=== PATIENT | female | born 1955 | race Caucasian/White ===

== ENCOUNTER 2016-08-26 17:28 | Emergency (ER) | payer MEDICARE, MEDICAID ==
[~2016-08-26] VITALS: Ht 170.2 cm; Wt 81.1 kg
[~2016-08-26 17:28] MED LIST: AZIT250T6 PO; CLON1TAB23 PO; FLUT1DIS INH; HYDR-4246 PO; ONDA4TAB7 PO; PANT40TA27 PO; PROP20TA7 PO; SUVO10TA; VENL150C2 PO
--- OUTSIDE RECORDS SUMMARY | 2016-08-26 17:32 | XMS REPORT | Continuity of Care Document ---
Author Author [facility] Organization [facility] Address Unknown Phone Unavailable Support Name Relationship Address Phone JODY ORNELAS MD Caregiver [address] [place] [address] [place] [phone] BARTOLO FRIEDMAN MD Caregiver [address] [place], [place] [id number] RIYA POWERS Next Of Kin [address] [place] [address] Insurance Providers Payer Name Policy Number Subscriber Name Relationship Medicare [id number] Regine Dixon 20 Self Advance Directives Directive Response Recorded Date/Time Advanced Directives Type None 11/09/13 5:58pm Problems Medical Problems Problem Onset Date Status ANXIETY Unknown Active CHEST WALL PAIN Unknown Active ANXIETY Unknown Active CHEST WALL PAIN Unknown Active GERD Unknown Active Gastritis Unknown Active Headache Unknown Active Seborrheic dermatitis of scalp Unknown Active LOW BACK PAIN Unknown Active Low back pain Unknown Active ANXIETY Unknown Active Fall on same level from slipping, tripping or stumbling Unknown Active Neck strain Unknown Active Right knee contusion Unknown Active Shoulder contusion Unknown Active Restless leg syndrome Unknown Active Dizziness Unknown Active Dizziness Unknown Active Depression Unknown Active Generalized pain Unknown Active Depression Unknown Active Vertigo Unknown Active Vertigo Unknown Active Dependent edema Unknown Active Dependent edema Unknown Active Urethral caruncle Unknown Active Urethral caruncle Unknown Active Medications Medication Dose Route Sig Days/Qty Instructions Order Date Discontinued Date Status Lorazepam 1 Mg PO TWICE A DAY 05/13/08 10/18/08 Discontinued Gabapentin 600 Mg PO THREE TIMES A DAY 08/08/08 11/12/08 Discontinued Sertraline Hcl 200 Mg PO DAILY 12/14/09 01/01/12 Discontinued Chlorzoxazone 1 Tab PO Q 8 H PRN 06/16/08 10/18/08 Discontinued Clonazepam 1 Mg PO THREE TIMES A DAY 12/14/09 04/24/12 Discontinued Aripiprazole 1 Tab PO DAILY 08/08/08 10/18/08 Discontinued Omeprazole 1 Cap PO TWICE A DAY 08/08/08 10/18/08 Discontinued Famotidine 10 Mg PO TWICE A DAY 10/18/08 11/12/08 Discontinued Aripiprazole 1 Tab PO DAILY 08/10/09 10/31/09 Discontinued Hydrocodone Bit/Acetaminophen 1 - 2 Tab PO EVERY 4-6 HOURS 11/12/08 03/17/09 Discontinued Eszopiclone 1 Tab PO BEDTIME 11/12/08 02/15/09 Discontinued Pregabalin 1 Tab PO THREE TIMES A DAY 11/12/08 02/15/09 Discontinued [Neurontin] 600 Mg PO THREE TIMES A DAY 08/10/09 10/31/09 Discontinued Ranitidine Hcl 1 Tab PO DAILY 11/12/08 02/15/09 Discontinued Omeprazole Magnesium 20 Mg PO DAILY 10/31/09 10/31/09 Discontinued Hydrocodone Bit/Acetaminophen 1 Udtab PO NEEDED 08/10/09 Discontinued Aripiprazole 5 Mg PO DAILY 10/31/09 12/09/09 Discontinued Hydrocodone Bit/Acetaminophen 1 Tab PO NEEDED 12/14/09 01/01/12 Discontinued Venlafaxine Hcl 300 Mg PO DAILY 01/01/12 Active Lorazepam 1 Mg PO THREE TIMES A DAY 04/24/12 06/18/12 Discontinued Clonazepam 1 Mg PO THREE TIMES A DAY 06/18/12 Active Promethazine Hcl 25 Mg PO EVERY 4-6 HOURS 08/11/12 09/24/12 Discontinued [Zanaflex] BEDTIME 08/11/12 08/22/12 Discontinued Sumatriptan Succinate 50 Mg GT NEEDED 08/11/12 08/22/12 Discontinued Multivitamin 1 Each PO DAILY 08/22/12 09/24/12 Discontinued Nicotine 1 Patch TD DAILY 08/22/12 09/24/12 Discontinued Tizanidine Hcl 4 Mg PO TWICE A DAY 08/22/12 11/12/12 Discontinued Tramadol Hcl 50 Mg PO NEEDED 09/24/12 11/12/12 Discontinued Sumatriptan Succinate 50 Mg PO NEEDED 09/24/12 12/24/12 Discontinued Promethazine Hcl 25 Mg PO NEEDED 10/15/12 11/12/12 Discontinued Gabapentin 800 Mg PO FOUR TIMES DAILY 11/09/13 Active Meclizine Hcl 25 Mg PO TWICE A DAY 11/21/13 Active Trazodone Hcl 50 Mg PO BEDTIME 11/21/13 Active Lorazepam 1 Mg PO FOUR TIMES DAILY 11/21/13 Active Risperidone 1 Mg PO TWICE A DAY 11/21/13 Active Ibuprofen 800 Mg PO Every 8 Hours 11/21/13 Active Pantoprazole Sodium 40 Mg PO BEFORE BREAKFAST Take 1 tablet, by mouth, daily before breakfast. 02/21/14 Active Ranitidine HCl 300 Mg PO DAILY 02/21/14 Active Estradiol 1 [place] TOP DAILY 14 Days thoroughly after application. Active Diclofenac Sodium 75 Mg PO TWICE A DAY 20 Qty 02/21/14 Active Hydrocodone/Acetaminophen 1-2 Tab PO Q6H/0300,0900,1500,2100 PRN vaginal pain 20 Qty 02/21/14 Active Social History Social History Problem Response Recorded Date/Time Smoking Status Current every day smoker 11/09/2013 6:00pm Chewing Tobacco Status No 11/09/2013 6:00pm Hx Substance Use N PAST USE OF MARIJUANA 02/21/2014 3:45pm Hx Alcohol Use No 02/21/2014 3:45pm Has the pt used tobacco in the last 12 months Yes 02/05/2012 11:23am Query Response Start Date Stop Date Smoking Status Current every day smoker Hospital Discharge Instructions No hospital discharge instructions. Plan of Care No plan of care. Functional Status Query Response Date Recorded Physical Hygiene Self February 21, 2014 3:45pm Disabilities None February 21, 2014 3:45pm Devices Used None February 21, 2014 3:45pm Dressing Self February 21, 2014 3:45pm Ambulation Self November 09, 2013 6:00pm Diet Self February 21, 2014 3:45pm Mental Status Forgetful November 09, 2013 6:00pm Disabilities None February 21, 2014 3:45pm Devices Used None February 21, 2014 3:45pm Physical Hygiene Self February 21, 2014 3:45pm Dressing Self February 21, 2014 3:45pm Ambulation Self November 09, 2013 6:00pm Diet Self February 21, 2014 3:45pm Allergies, Adverse Reactions, Alerts Allergen Type Severity Reaction Status Last Updated Sulfamethoxazole Allergy Unknown Active 02/21/14 Trimethoprim Allergy Unknown Active 02/21/14 Fluoxetine Allergy Unknown Active 02/21/14 Immunizations Name Given Type Hx Influenza Vaccination Y 2012 Historical Hx Pneumococcal Vaccination No Historical Hx Tetanus, Diptheria, Pertussis NO OPEN AREAS Historical Hx Influenza Vaccination Y 2012 Historical Hx Tetanus Diptheria No Historical Hx Tetanus, Diptheria, Pertussis NO OPEN AREAS Historical Hx Tetanus Toxoid Vaccination No Historical Vital Signs Acute Vital Signs Vital Response Date/Time Temperature (Fahrenheit) 97.9 deg F (96.8 - 99.1) Temperature (Calculated Celsius) 36.00260 degrees C (36.0 - 37.3) Pulse Rate (adult) 75 bpm (60 - 100) Respiratory Rate 20 breaths/min (10 - 20) O2 Sat by Pulse Oximetry 95 % (90 - 100) Blood Pressure 118/84 mm Hg Height 5 ft 7 in Weight 189 lb Body Mass Index 29.0 kg/m^2 Results Test Source Date Result Interp. Ref. Range Comments Acetaminophen Level November 08, 2013 8:37pm < 10 UG/ML L 10-30 TOXIC <4 HR POST INGESTION: >150 MG/L;TOXIC <12 HR POST INGESTION: >50 MG/L Activated Partial Thromboplast Time December 24, 2012 4:10pm 28.6 SEC N 24 -36 Ordering r/o VTE Yes Alanine Aminotransferase (ALT/SGPT) February 21, 2014 4:00pm 29 U/L N 9- 52 Albumin February 21, 2014 4:00pm 4.0 G/DL N 3.5-5.0 Albumin/Globulin Ratio February 21, 2014 4:00pm 1.3 RATIO N 1.1-2.2 Alcohol, Quantitative November 08, 2013 8:37pm <10 MG/DL - Alkaline Phosphatase February 21, 2014 4:00pm 85 U/L N 38-126 Amylase Level August 11, 2012 11:40pm 104 U/L N 30-110 Anion Gap February 21, 2014 4:00pm 12 MEQ/L N 5-15 Aspartate Amino Transf (AST/SGOT) February 21, 2014 4:00pm 22 U/L N 14- 36 BUN/Creatinine Ratio February 21, 2014 4:00pm 10 RATIO N 6-26 Band Neutrophils # March 12, 2013 5:00am 0.1 T/MM3 - Band Neutrophils % March 12, 2013 5:00am 1.0 % N 0-6 Basophils # (Auto) February 21, 2014 4:00pm 0.0 T/MM3 N 0-0.2 Basophils # (Manual) July 26, 2008 7:05am 0.0 T/MM3 N 0-0.2 Basophils % (Manual) July 26, 2008 7:05am 0.0 % N 0-2 Basophils (%) (Auto) February 21, 2014 4:00pm 0.5 % N 0-2 Blood Urea Nitrogen February 21, 2014 4:00pm 9.0 MG/DL N 7-17 Calcium Level February 21, 2014 4:00pm 9.3 MG/DL N 8.4-10.2 Calculated Osmolality February 21, 2014 4:00pm 269 MOSM/KG N 261-280 Carbon Dioxide Level February 21, 2014 4:00pm 28 MEQ/L N 22-30 Chloride Level February 21, 2014 4:00pm 101 MEQ/L N 98-107 Cholesterol Level November 13, 2008 5:55am 196 MG/DL N 132-199 Cholesterol/HDL Ratio November 13, 2008 5:55am 8.0 RATIO H 0-4.0 Conjugated Bilirubin August 21, 2012 11:00pm 0.00 MG/DL N 0.00-0.30 Creatinine February 21, 2014 4:00pm 0.9 MG/DL N 0.7-1.2 D-Dimer November 23, 2013 8:15pm 291 NG/ML H 0-230 <224 NG/ML=PRESUMPTIVE NEGATIVE FOR PE OR DVT>224 NG/ML=ADDITIONAL EVALUATION FOR PE OR DVT RECOMMENDED Eosinophils # (Auto) February 21, 2014 4:00pm 0.2 T/MM3 N 0-0.5 Eosinophils # (Manual) March 12, 2013 5:00am 0.5 T/MM3 N 0-0.5 Eosinophils % (Manual) March 12, 2013 5:00am 6.0 % H 0-4 Eosinophils (%) (Auto) February 21, 2014 4:00pm 2.4 % N 0-4 Erythrocyte Sedimentation Rate July 13, 2009 11:35pm 23 MM/HR H 0-20 Free Thyroxine July 21, 2008 7:25pm 0.82 NG/DL N 0.78-2.19 Free Triiodothyronine July 21, 2008 7:25pm 3.56 PG/ML N 2.77-5.27 Globulin February 21, 2014 4:00pm 3.1 G/DL N 2.4-3.6 Glucose Level February 21, 2014 4:00pm 72 MG/DL N 65-110 Group A Streptococcus Screen July 19, 2008 12:40am Negative - Strep culture confirmation to follow Hematocrit February 21, 2014 4:00pm 37.4 % N 36-46 Hemoglobin February 21, 2014 4:00pm 12.7 GM/DL N 12-16 Influenza Virus Types A,B Antigen July 19, 2008 12:55am Negative - LDL Cholesterol, Calculated November 13, 2008 5:55am 138.8 N 66-159 Lipase March 12, 2013 5:00am 184 U/L N 23-300 Lymphocytes # (Auto) February 21, 2014 4:00pm 3.2 T/MM3 N 1-4.8 Lymphocytes # (Manual) March 12, 2013 5:00am 4.6 T/MM3 N 1-4.8 Lymphocytes % (Manual) March 12, 2013 5:00am 52.0 % H 23-45 Lymphocytes (%) (Auto) February 21, 2014 4:00pm 36.6 % N 23-45 Magnesium Level November 07, 2013 9:58am 2.2 MG/DL N 1.6-2.3 Mean Corpuscular Hemoglobin February 21, 2014 4:00pm 31.2 UUG N 26-34 Mean Corpuscular Hemoglobin Concent February 21, 2014 4:00pm 34.0 GM/DL N 31-37 Mean Corpuscular Volume February 21, 2014 4:00pm 91.9 UM3 N 80-100 Mean Platelet Volume February 21, 2014 4:00pm 9.3 UM3 L 9.4-12.4 Metamyelocytes # July 26, 2008 7:05am 0.1 T/MM3 - Metamyelocytes % July 26, 2008 7:05am 1.0 % H 0-0 Monocytes # (Auto) February 21, 2014 4:00pm 0.6 T/MM3 N 0-0.8 Monocytes # (Manual) March 12, 2013 5:00am 0.4 T/MM3 N 0-0.8 Monocytes % (Manual) March 12, 2013 5:00am 4.0 % N 0-9.0 Monocytes (%) (Auto) February 21, 2014 4:00pm 7.0 % N 0-9.0 Neutrophils # (Auto) February 21, 2014 4:00pm 4.7 T/MM3 N 1.8-7.7 Neutrophils # (Manual) March 12, 2013 5:00am 3.3 T/MM3 N 1.8-7.7 Neutrophils % (Manual) March 12, 2013 5:00am 37.0 % N 33-66 Neutrophils (%) (Auto) February 21, 2014 4:00pm 53.4 % N 33-66 Platelet Count February 21, 2014 4:00pm 253 T/MM3 N 130-400 Potassium Level February 21, 2014 4:00pm 3.8 MEQ/L N 3.6-5 Prothromb Time International Ratio December 24, 2012 4:10pm 0.96 N 0.86- 1.10 THERAPUTIC RANGE=2.00-3.00 FOR ANTI-THROMBOSIS THERAPUTIC RANGE=2.50- 3.50 FOR IMPLANTED VALVE RDW Standard Deviation February 21, 2014 4:00pm 44.5 FL N 36.9-50.2 Red Blood Count February 21, 2014 4:00pm 4.07 M/MM3 N 4.00-5.20 Rheumatoid Factor July 21, 2008 7:25pm < 6 IU/ML 0-11 Salicylates Level November 08, 2013 8:37pm < 1.0 MG/DL L 2-20 Sodium Level February 21, 2014 4:00pm 141 MEQ/L N 134-144 Tests Not Done July 16, 2009 7:29pm Not done - Has specimen been collected/obtained? Y Thyroid Stimulating Hormone (TSH) December 24, 2012 4:10pm 0.46 MIU/L L 0.47-4.68 Total Bilirubin February 21, 2014 4:00pm 0.30 MG/DL N 0.20-1.30 Total Creatine Kinase July 21, 2008 7:25pm 53 U/L N 30-135 Total Protein February 21, 2014 4:00pm 7.1 G/DL N 6.3-8.2 Triglycerides Level November 13, 2008 5:55am 176 MG/DL H 35-135 Troponin I November 21, 2013 9:24pm < 0.012 ng/ml 0-0.12 Unconjugated Bilirubin August 21, 2012 11:00pm 0.00 MG/DL N 0.00-1.10 Urine Bacteria December 24, 2012 6:22pm 1+ H - Has specimen been collected/obtained? Y Urine Bilirubin February 21, 2014 4:00pm Negative - Has specimen been collected/obtained? Y Urine Blood February 21, 2014 4:00pm Negative - Has specimen been collected/obtained? Y Urine Collection Type February 21, 2014 4:00pm Cleancatch-midstream - Has specimen been collected/obtained? Y Urine Color February 21, 2014 4:00pm Yellow - Has specimen been collected/obtained? Y Urine Culture Indicated December 24, 2012 6:22pm Cult reflexed &setup - Has specimen been collected/obtained? Y Urine Drug Screen Confirmation July 14, 2009 12:04am Sent out - Urine Glucose (UA) February 21, 2014 4:00pm Negative - Has specimen been collected/obtained? Y Urine Ketones February 21, 2014 4:00pm Negative - Has specimen been collected/obtained? Y Urine Leukocyte Esterase February 21, 2014 4:00pm Negative - Has specimen been collected/obtained? Y Urine Nitrite February 21, 2014 4:00pm Negative - Has specimen been collected/obtained? Y Urine Protein February 21, 2014 4:00pm Negative - Has specimen been collected/obtained? Y Urine RBC December 24, 2012 6:22pm None seen /HPF - Has specimen been collected/obtained? Y Urine Specific [place] February 21, 2014 4:00pm <=1.005 L - Has specimen been collected/obtained? Y Urine Squamous Epithelial Cells December 24, 2012 6:22pm >50 - Has specimen been collected/obtained? Y Urine Turbidity February 21, 2014 4:00pm Clear - Has specimen been collected/obtained? Y Urine Urobilinogen February 21, 2014 4:00pm 0.2 EU/DL - Has specimen been collected/obtained? Y Urine WBC December 24, 2012 6:22pm 10-20 /HPF H - Has specimen been collected/obtained? Y Urine pH February 21, 2014 4:00pm 5.5 - Has specimen been collected/ obtained? Y VLDL Cholesterol November 13, 2008 5:55am 35.2 MG/DL H 0-28 Vitamin D 1,25-Dihydroxy November 12, 2008 8:30pm Send out - White Blood Count February 21, 2014 4:00pm 8.7 T/MM3 N 4.5-11.0 Chemistry Specimen Hemolysis February 21, 2014 4:00pm < 15 0-25 0-25: No Hemolysis.26-70: Slight Hemolysis - can falsely elevate K and Urine Protein. 71-285: Moderate Hemolysis - can falsely elevate K, Troponin I, CA 19-9, PTH, CSF GLucose, and Urine Protein, and can falsely decrease Phenytoin. 286-999: Gross Hemolysis - can falsely elevate K, Troponin I, CA 19-9, PTH, CSF Glucose, and Urine Protine, and can falsely decrease Phenytoin. Recommend specimen recollection. Urinalysis Comment February 21, 2014 4:00pm Microscopic not ind. - Has specimen been collected/obtained? Y Glucometer July 27, 2008 5:09pm 137 mg/dL - Lab Scanned Report November 08, 2013 9:33pm REFERENCE LAB [id number] - EKG November 12, 2008 4:01pm Complete - HDL Cholesterol Direct November 13, 2008 5:55am 22 MG/DL L 40-60 Anti-Nuclear Antibody (LAB) July 21, 2008 7:25pm Sent out - Turbidity February 21, 2014 4:00pm < 20 0-20 Glomerular Filtration Rate Calc February 21, 2014 4:00pm 65 - Immature Granulocyte # (Auto) February 21, 2014 4:00pm 0.01 T/MM3 N 0.00- 0.03 Immature Granulocyte % (Auto) February 21, 2014 4:00pm 0.1 % N 0.0-0.5 Icterus Index February 21, 2014 4:00pm < 2 0-7 XN-Yur-F-Type Natriuretic Peptide November 07, 2013 9:58am 88 PG/ML N 0-175 Rule in cut points: <50 years old=450; 50-75 years old=900; >75 years old=1800; When utilizing ProBNP rule-in cut points, adjustment for impaired renal function is typically not required. Urine Microscopic Not Indicated January 01, 2012 2:55pm Not indicated - Has specimen been collected/obtained? Y Wet Prep Vagina February 21, 2014 5:00pm Group A Streptococcus Culture Throat July 19, 2008 1:24am Urine Culture Urine, Voided-Not Cc-Midstream December 24, 2012 6:47pm Mixed Eugenia Prob. Contaminants Name: REGINE DIXON Unit #: [id number] : [id number] Sex: F Loc / Svc: ED DOS: 11/23/13 Signed Report #: [id number] DIAGNOSTIC IMAGING REPORT TYPE OF EXAM: US VENOUS DUPLEX, LOWER EXT BI Dictated By: SHASHANK GREY MD INDICATION: ITS.REASON: 4 day hx leg swelling, R>L ^4 day hx leg swelling, R>L COMPARISON: none. US VENOUS DUPLEX, LOWER EXT BI: There is a [facility] report. There is no evidence of thrombus in the veins from the common femoral to the popliteal. The infrapopliteal veins that can be seen also appear to be normal. The greater saphenous vein appears to be patent bilaterally. IMPRESSION: Negative bilateral venous ultrasound. . Procedures No known history of procedures. Encounters Encounter Location Date/Time Departed Emergency Room [facility] 02/21/14 3:05pm Departed Emergency Room [facility] 11/23/13 6:49pm Recent Diagnosis
[2016-08-26 17:33] VITALS: Ht 170.2 cm; Wt 81.1 kg
--- OUTSIDE RECORDS SUMMARY | 2016-08-26 17:33 | XMS REPORT | Continuity of Care Document ---
Author Author [facility] Organization [facility] Address Unknown Phone Unavailable Support Name Relationship Address Phone LUMA PERRY MD Caregiver [address] [place] [address] [place] [phone] SANDRA MANTILLA Caregiver [address] [place] [address] VICKI POWERSFRANKI Wise Next Of Kin [address] [place] [address] Insurance Providers Payer Name Policy Number Subscriber Name Relationship Medicare [id number] Regine Dixon 20 Self Advance Directives Directive Response Recorded Date/Time Advanced Directives Type None 11/09/13 5:58pm Ordered Resuscitation Status Full Code, unverified 07/06/14 8:02am Problems Medical Problems Problem Onset Date Status [...] caruncle Unknown Active Urethral caruncle Unknown Active Diverticulitis Unknown Active Dysuria Unknown Active Diverticulitis Unknown Active Pain, dental Unknown Active Pain, dental Unknown Active Medications Medication Dose Route Sig [...] Mg PO FOUR TIMES DAILY 11/09/13 Active Trazodone Hcl 50 Mg PO BEDTIME 11/21/13 Active Risperidone 1 Mg PO TWICE A DAY 11/21/13 Active Pantoprazole Sodium 40 Mg PO BEFORE BREAKFAST Take 1 tablet, by mouth, daily before breakfast. 02/21/14 Active Ranitidine HCl 150 Mg PO TWICE A DAY 07/06/14 Active Minocycline HCl 100 Mg PO EVERY 12 HOURS 14 Qty 07/06/14 Active Hydrocodone/Acetaminophen 1 Tab PO Every 6 Hours PRN PAIN 20 Qty Active Social History Social History Problem Response Recorded Date/Time Chewing Tobacco Status No 11/09/2013 6:00pm Hx Substance Use N PAST USE OF MARIJUANA 07/06/2014 8:31am Hx Alcohol Use No 07/06/2014 8:31am Has the pt used tobacco in the last 12 months Yes 07/06/2014 8:31am Tobacco Usage smoke 11/07/2013 10:12am Query Response Start Date Stop Date Smoking Status Current every day smoker Hospital Discharge Instructions No hospital discharge instructions. Plan of Care No plan of care. Functional Status Query Response Date Recorded Physical Hygiene Self June 13, 2014 4:02pm Ambulation Self November 09, 2013 6:00pm Mental Status Forgetful November 09, 2013 6:00pm Physical Hygiene Self June 13, 2014 4:02pm Ambulation Self November 09, 2013 6:00pm Allergies, Adverse Reactions, Alerts Allergen Type Severity Reaction Status Last Updated Sulfamethoxazole Allergy Unknown Active 07/06/14 Trimethoprim Allergy Unknown Active 07/06/14 Fluoxetine Allergy Unknown Active 07/06/14 Immunizations Name Given Type Hx Influenza Vaccination Y 2013 Historical Hx Pneumococcal Vaccination No Historical Hx Tetanus, Diptheria, Pertussis NO OPEN AREAS Historical Hx Influenza Vaccination Y 2013 Historical Hx Tetanus Diptheria No Historical Hx Tetanus, Diptheria, Pertussis NO OPEN AREAS Historical Hx Tetanus Toxoid Vaccination No Historical Vital Signs Acute Vital Signs Vital Response Date/Time Temperature (Fahrenheit) 97.6 deg F (96.8 - 99.1) Temperature (Calculated Celsius) 36.67350 degrees C (36.0 - 37.3) Temperature Source Temporal Pulse Rate (adult) 87 bpm (60 - 100) Respiratory Rate 16 breaths/min (10 - 20) O2 Sat by Pulse Oximetry 91 % (90 - 100) Oxygen Delivery Method Room Air Blood Pressure 100/65 mm Hg Blood Pressure Source Automatic Cuff Height 5 ft 7 in Weight 192 lb Body Mass Index 30.0 kg/m^2 Results Test Source Date Result Interp. Ref. Range Comments Acetaminophen Level November 08, 2013 8:37pm < 10 UG/ML L 10-30 TOXIC <4 HR POST INGESTION: >150 MG/L;TOXIC <12 HR POST INGESTION: >50 MG/L Activated Partial Thromboplast Time July 06, 2014 8:17am 26.6 SEC N 24- 36 Alanine Aminotransferase (ALT/SGPT) May 18, 2014 5:33pm 39 U/L N 9- 52 Albumin May 18, 2014 5:33pm 3.9 G/DL N 3.5-5.0 Albumin/Globulin Ratio May 18, 2014 5:33pm 1.4 RATIO N 1.1-2.2 Alcohol, Quantitative November 08, 2013 8:37pm <10 MG/DL - Alkaline Phosphatase May 18, 2014 5:33pm 84 U/L N 38-126 Amylase Level August 11, 2012 11:40pm 104 U/L N 30-110 Anion Gap July 06, 2014 8:17am 11 MEQ/L N 5-15 Anti-Nuclear Antibody (LAB) July 21, 2008 7:25pm Sent out - Aspartate Amino Transf (AST/SGOT) May 18, 2014 5:33pm 37 U/L H 14- 36 BUN/Creatinine Ratio July 06, 2014 8:17am 16 RATIO N 6-26 Band Neutrophils # May 18, 2014 5:33pm 0.2 T/MM3 - Band Neutrophils % May 18, 2014 5:33pm 2.0 % N 0-6 Basophils # (Auto) July 06, 2014 8:17am 0.0 T/MM3 N 0-0.2 Basophils # (Manual) July 26, 2008 7:05am 0.0 T/MM3 N 0-0.2 Basophils % (Manual) July 26, 2008 7:05am 0.0 % N 0-2 Basophils (%) (Auto) July 06, 2014 8:17am 0.4 % N 0-2 Blood Urea Nitrogen July 06, 2014 8:17am 14.0 MG/DL N 7-17 Calcium Level July 06, 2014 8:17am 9.2 MG/DL N 8.4-10.2 Calculated Osmolality July 06, 2014 8:17am 274 MOSM/KG N 261-280 Carbon Dioxide Level July 06, 2014 8:17am 26 MEQ/L N 22-30 Chemistry Specimen Hemolysis July 06, 2014 8:17am < 15 0-25 0-25: No Hemolysis.26-70: Slight [...] can falsely decrease Phenytoin. Recommend specimen recollection. Chloride Level July 06, 2014 8:17am 105 MEQ/L N 98-107 Cholesterol Level November 13, 2008 5:55am 196 MG/DL N 132-199 Cholesterol/HDL Ratio November 13, 2008 5:55am 8.0 RATIO H 0-4.0 Conjugated Bilirubin August 21, 2012 11:00pm 0.00 MG/DL N 0.00-0.30 Creatinine July 06, 2014 8:17am 0.9 MG/DL N 0.7-1.2 D-Dimer November 23, 2013 8:15pm 291 NG/ML H 0-230 <224 NG/ML=PRESUMPTIVE NEGATIVE FOR PE OR DVT>224 NG/ML=ADDITIONAL EVALUATION FOR PE OR DVT RECOMMENDED EKG November 12, 2008 4:01pm Complete - Eosinophils # (Auto) July 06, 2014 8:17am 0.3 T/MM3 N 0-0.5 Eosinophils # (Manual) May 18, 2014 5:33pm 0.1 T/MM3 N 0-0.5 Eosinophils % (Manual) May 18, 2014 5:33pm 1.0 % N 0-4 Eosinophils (%) (Auto) July 06, 2014 8:17am 4.2 % H 0-4 Erythrocyte Sedimentation Rate July 13, 2009 11:35pm 23 MM/HR H 0-20 Free Thyroxine July 21, 2008 7:25pm 0.82 NG/DL N 0.78-2.19 Free Triiodothyronine July 21, 2008 7:25pm 3.56 PG/ML N 2.77-5.27 Globulin May 18, 2014 5:33pm 2.8 G/DL N 2.4-3.6 Glomerular Filtration Rate Calc July 06, 2014 8:17am 65 - Glucometer July 27, 2008 5:09pm 137 mg/dL - Glucose Level July 06, 2014 8:17am 102 MG/DL N 65-110 Group A Streptococcus Screen July 19, 2008 12:40am Negative - Strep culture confirmation to follow HDL Cholesterol Direct November 13, 2008 5:55am 22 MG/DL L 40-60 Hematocrit July 06, 2014 8:17am 41.0 % N 36-46 Hemoglobin July 06, 2014 8:17am 13.9 GM/DL N 12-16 Icterus Index July 06, 2014 8:17am < 2 0-7 Immature Granulocyte # (Auto) July 06, 2014 8:17am 0.02 T/MM3 N 0.00- 0.03 Immature Granulocyte % (Auto) July 06, 2014 8:17am 0.3 % N 0.0-0.5 Influenza Virus Types A,B Antigen July 19, 2008 12:55am Negative - LDL Cholesterol, Calculated November 13, 2008 5:55am 138.8 N 66-159 Lab Scanned Report November 08, 2013 9:33pm REFERENCE LAB [id number] - Lipase March 12, 2013 5:00am 184 U/L N 23-300 Lymphocytes # (Auto) July 06, 2014 8:17am 3.2 T/MM3 N 1-4.8 Lymphocytes # (Manual) May 18, 2014 5:33pm 2.4 T/MM3 N 1-4.8 Lymphocytes % (Manual) May 18, 2014 5:33pm 25.0 % N 23-45 Lymphocytes (%) (Auto) July 06, 2014 8:17am 40.8 % N 23-45 Magnesium Level November 07, 2013 9:58am 2.2 MG/DL N 1.6-2.3 Mean Corpuscular Hemoglobin July 06, 2014 8:17am 31.0 UUG N 26-34 Mean Corpuscular Hemoglobin Concent July 06, 2014 8:17am 33.9 GM/DL N 31-37 Mean Corpuscular Volume July 06, 2014 8:17am 91.5 UM3 N 80-100 Mean Platelet Volume July 06, 2014 8:17am 9.5 UM3 N 9.4-12.4 Metamyelocytes # July 26, 2008 7:05am 0.1 T/MM3 - Metamyelocytes % July 26, 2008 7:05am 1.0 % H 0-0 Monocytes # (Auto) July 06, 2014 8:17am 0.6 T/MM3 N 0-0.8 Monocytes # (Manual) May 18, 2014 5:33pm 0.1 T/MM3 N 0-0.8 Monocytes % (Manual) May 18, 2014 5:33pm 1.0 % N 0-9.0 Monocytes (%) (Auto) July 06, 2014 8:17am 7.3 % N 0-9.0 LH-Wdt-V-Type Natriuretic Peptide November 07, 2013 9:58am 88 PG/ML N 0-175 Rule in cut points: <50 years old=450; 50-75 years old=900; >75 years old=1800; When utilizing ProBNP rule-in cut points, adjustment for impaired renal function is typically not required. Neutrophils # (Auto) July 06, 2014 8:17am 3.7 T/MM3 N 1.8-7.7 Neutrophils # (Manual) May 18, 2014 5:33pm 6.5 T/MM3 N 1.8-7.7 Neutrophils % (Manual) May 18, 2014 5:33pm 68.0 % H 33-66 Neutrophils (%) (Auto) July 06, 2014 8:17am 47.0 % N 33-66 Platelet Count July 06, 2014 8:17am 262 T/MM3 N 130-400 Potassium Level July 06, 2014 8:17am 4.2 MEQ/L N 3.6-5 Prothromb Time International Ratio July 06, 2014 8:17am 0.97 N 0.81- 1.09 THERAPUTIC RANGE=2.00-3.00 FOR ANTI-THROMBOSIS THERAPUTIC RANGE=2.50- 3.50 FOR IMPLANTED VALVE RDW Standard Deviation July 06, 2014 8:17am 47.0 FL N 36.9-50.2 Reactive Lymphocytes # May 18, 2014 5:33pm 0.3 T/MM3 H 0-0 Reactive Lymphocytes % May 18, 2014 5:33pm 3.0 % H 0-0 Red Blood Count July 06, 2014 8:17am 4.48 M/MM3 N 4.00-5.20 Rheumatoid Factor July 21, 2008 7:25pm < 6 IU/ML 0-11 Salicylates Level November 08, 2013 8:37pm < 1.0 MG/DL L 2-20 Sodium Level July 06, 2014 8:17am 142 MEQ/L N 134-144 Tests Not Done July 16, 2009 7:29pm Not done - Has specimen been collected/obtained? Y Thyroid Stimulating Hormone (TSH) December 24, 2012 4:10pm 0.46 MIU/L L 0.47-4.68 Total Bilirubin May 18, 2014 5:33pm 0.30 MG/DL N 0.20-1.30 Total Creatine Kinase July 21, 2008 7:25pm 53 U/L N 30-135 Total Protein May 18, 2014 5:33pm 6.7 G/DL N 6.3-8.2 Triglycerides Level November 13, 2008 5:55am 176 MG/DL H 35-135 Troponin I November 21, 2013 9:24pm < 0.012 ng/ml 0-0.12 Turbidity July 06, 2014 8:17am < 20 0-20 Unconjugated Bilirubin August 21, 2012 11:00pm 0.00 MG/DL N 0.00-1.10 Urinalysis Comment May 18, 2014 4:45pm Microscopic not ind. - Has specimen been collected/obtained? Y Urine Bacteria December 24, 2012 6:22pm 1+ H - Has specimen been collected/obtained? Y Urine Bilirubin May 18, 2014 4:45pm Negative - Has specimen been collected/obtained? Y Urine Blood May 18, 2014 4:45pm Negative - Has specimen been collected/obtained? Y Urine Collection Type May 18, 2014 4:45pm Voided-not cc-midstr - Has specimen been collected/obtained? Y Urine Color May 18, 2014 4:45pm Yellow - Has specimen been collected/obtained? Y Urine Culture Indicated December 24, 2012 6:22pm Cult reflexed &setup - Has specimen been collected/obtained? Y Urine Drug Screen Confirmation July 14, 2009 12:04am Sent out - Urine Glucose (UA) May 18, 2014 4:45pm Negative - Has specimen been collected/obtained? Y Urine Ketones May 18, 2014 4:45pm Negative - Has specimen been collected/obtained? Y Urine Leukocyte Esterase May 18, 2014 4:45pm Trace H - Has specimen been collected/obtained? Y Urine Microscopic Not Indicated January 01, 2012 2:55pm Not indicated - Has specimen been collected/obtained? Y Urine Nitrite May 18, 2014 4:45pm Negative - Has specimen been collected/obtained? Y Urine Protein May 18, 2014 4:45pm Negative - Has specimen been collected/obtained? Y Urine RBC December 24, 2012 6:22pm None seen /HPF - Has specimen been collected/obtained? Y Urine Specific [place] May 18, 2014 4:45pm <=1.005 L - Has specimen been collected/obtained? Y Urine Squamous Epithelial Cells December 24, 2012 6:22pm >50 - Has specimen been collected/obtained? Y Urine Turbidity May 18, 2014 4:45pm Clear - Has specimen been collected/obtained? Y Urine Urobilinogen May 18, 2014 4:45pm 0.2 EU/DL - Has specimen been collected/obtained? Y Urine WBC December 24, 2012 6:22pm 10-20 /HPF H - Has specimen been collected/obtained? Y Urine pH May 18, 2014 4:45pm 6.0 - Has specimen been collected/ obtained? Y VLDL Cholesterol November 13, 2008 5:55am 35.2 MG/DL H 0-28 Vitamin D 1,25-Dihydroxy November 12, 2008 8:30pm Send out - White Blood Count July 06, 2014 8:17am 7.9 T/MM3 N 4.5-11.0 Gram Stain Cervix February 21, 2014 5:00pm Group A Streptococcus Culture Throat July 19, 2008 1:24am Urine Culture Urine, Voided-Not Cc-Midstream December 24, 2012 6:47pm Mixed Eugenia Prob. Contaminants Name: REGINE DIXON Unit #: [id number] : [id number] Sex: F Loc / Svc: ED DOS: 05/18/14 Signed Report #: [id number] DIAGNOSTIC IMAGING REPORT TYPE OF EXAM: CT RENAL W/O CONTRAST Dictated By: DANIELITO GRANDA MD INDICATION: ITS.REASON: left flank/low back pain CT RENAL W/O CONTRAST: Comparison: CT abdomen and pelvis dated August 22, 2012 Technique: Axial CT images were performed through the abdomen and pelvis without intravenous contrast. Findings: The lung bases are grossly clear. The unenhanced liver is unremarkable. Gallbladder, spleen, pancreas and adrenal glands are unremarkable. Right kidney appears normal without evidence of stone disease or hydronephrosis. Right ureter is normal. Left kidney also appears normal. No stone disease or hydronephrosis. No left ureteral stones. No abdominal or pelvic lymphadenopathy. Bladder is moderately distended. Uterus is surgically absent. Sigmoid diverticulosis with some mild adjacent inflammatory change. Appendix is normal. Small bowel is grossly normal. Bone windows show degenerative changes in the spine. Impression: No urolithiasis. Subtle evidence of a mild sigmoid diverticulitis. There is a preliminary report by [employer]. . Procedures Procedure Status Date Provider(s) CT ABD & PELVIS W/O CONTRAST completed 05/18/14 COMPREHEN METABOLIC PANEL completed 05/18/14 URINALYSIS AUTO W/O SCOPE completed 05/18/14 BL SMEAR W/DIFF WBC COUNT completed 05/18/14 COMPLETE CBC AUTOMATED completed 05/18/14 THER/PROPH/DIAG INJ IV PUSH completed 05/18/14 TX/PRO/DX INJ NEW DRUG ADDON completed 05/18/14 EMERGENCY DEPT VISIT completed 05/18/14 [id number]"INJECTION, ONDANSETRON HYDROCHLORIDE, PER 1 MG" completed 05/18/14 EMERGENCY DEPT VISIT completed 06/13/14 [id number] ITEM OR SERVICE completed 06/13/14 Encounters Encounter Location Date/Time Departed Clinic [facility] 07/06/14 7:50am Departed Emergency Room [facility] 06/13/14 4:01pm Departed Emergency Room [facility] 05/18/14 4:36pm
--- OUTSIDE RECORDS SUMMARY | 2016-08-26 17:33 | XMS REPORT | Continuity of Care Document ---
Author Author [facility] Organization [facility] Address Unknown Phone Unavailable Support Name Relationship Address Phone JORDY MALIK MD Caregiver [facility] [address] [place] [address] Unavailable BARTOLO FRIEDMAN MD Caregiver [address] [place] [address] SANDRA MANTILLA Caregiver [address] [place] [phone] RIYA POWERS Next Of Kin [address] [place] [address] Insurance Providers Payer Name Policy Number Subscriber Name Relationship Medicare [id number] Regine Dixon 20 Self Advance Directives Directive [...] Diverticulitis Unknown Active Pain, dental Unknown Active Medications [...] daily before breakfast. 02/21/14 Active Ranitidine HCl 50 Mg PO TWICE A DAY 02/21/14 Active Hydrocodone/Apap 7.5/325 Mg 1 Tab PO EVERY 4-6 HOURS 20 Qty 06/13/14 Active Amoxicillin 1 Cap PO Every 8 Hours 30 Qty 06/13/14 Active Social History Social History Problem Response Recorded Date/Time Chewing Tobacco Status No 11/09/2013 6:00pm Hx Substance Use N PAST USE OF MARIJUANA 06/13/2014 4:02pm Hx Alcohol Use No 06/13/2014 4:02pm Has the pt used tobacco in the last 12 months Yes 02/05/2012 11:23am Tobacco Usage smoke 11/07/2013 10:12am Query Response Start Date Stop Date Smoking Status Current every day smoker Hospital Discharge Instructions No hospital discharge instructions. Plan of Care No plan of care. Functional Status Query Response Date Recorded Physical Hygiene Self June 13, 2014 4:02pm Disabilities Visual June 13, 2014 4:02pm Devices Used Glasses June 13, 2014 4:02pm Dressing Self June 13, 2014 4:02pm Ambulation Self November 09, 2013 6:00pm Diet Self June 13, 2014 4:02pm Mental Status Forgetful November 09, 2013 6:00pm Disabilities Visual June 13, 2014 4:02pm Devices Used Glasses June 13, 2014 4:02pm Physical Hygiene Self June 13, 2014 4:02pm Dressing Self June 13, 2014 4:02pm Ambulation Self November 09, 2013 6:00pm Diet Self June 13, 2014 4:02pm Allergies, Adverse Reactions, Alerts Allergen Type Severity Reaction Status Last Updated Sulfamethoxazole Allergy Unknown Active 06/13/14 Trimethoprim Allergy Unknown Active 06/13/14 Fluoxetine Allergy Unknown Active 06/13/14 Immunizations Name Given Type Hx Influenza Vaccination Y 2013 Historical Hx Pneumococcal Vaccination No Historical Hx Tetanus, Diptheria, Pertussis NO OPEN AREAS Historical Hx Influenza Vaccination Y 2012 Historical Hx Tetanus Diptheria No Historical Hx Tetanus, Diptheria, Pertussis NO OPEN AREAS Historical Hx Tetanus Toxoid Vaccination No Historical Vital Signs Acute Vital Signs Vital Response Date/Time Temperature (Fahrenheit) 97.3 deg F (96.8 - 99.1) Temperature (Calculated Celsius) 36.41673 degrees C (36.0 - 37.3) Pulse Rate (adult) 90 bpm (60 - 100) Respiratory Rate 16 breaths/min (10 - 20) O2 Sat by Pulse Oximetry 94 % (90 - 100) Blood Pressure 135/81 mm Hg Height 5 ft 7 in Weight 194 lb Body Mass Index 30.0 kg/m^2 Results Test Source Date Result Interp. Ref. Range Comments Acetaminophen Level November 08, 2013 8:37pm < 10 UG/ML L 10-30 TOXIC <4 HR POST INGESTION: >150 MG/L;TOXIC <12 HR POST INGESTION: >50 MG/L Activated Partial Thromboplast Time December 24, 2012 4:10pm 28.6 SEC N 24 -36 Ordering r/o VTE Yes Alanine Aminotransferase (ALT/SGPT) May 18, 2014 5:33pm 39 U/L N 9- 52 Albumin May 18, 2014 5:33pm 3.9 G/DL N 3.5-5.0 Albumin/Globulin Ratio May 18, 2014 5:33pm 1.4 RATIO N 1.1-2.2 Alcohol, Quantitative November 08, 2013 8:37pm <10 MG/DL - Alkaline Phosphatase May 18, 2014 5:33pm 84 U/L N 38-126 Amylase Level August 11, 2012 11:40pm 104 U/L N 30-110 Anion Gap May 18, 2014 5:33pm 8 MEQ/L N 5-15 Aspartate Amino Transf (AST/SGOT) May 18, 2014 5:33pm 37 U/L H 14- 36 BUN/Creatinine Ratio May 18, 2014 5:33pm 11 RATIO N 6-26 Band Neutrophils # May 18, 2014 5:33pm 0.2 T/MM3 - Band Neutrophils % May 18, 2014 5:33pm 2.0 % N 0-6 Basophils # (Auto) February 21, 2014 4:00pm 0.0 T/MM3 N 0-0.2 Basophils # (Manual) July 26, 2008 7:05am 0.0 T/MM3 N 0-0.2 Basophils % (Manual) July 26, 2008 7:05am 0.0 % N 0-2 Basophils (%) (Auto) February 21, 2014 4:00pm 0.5 % N 0-2 Blood Urea Nitrogen May 18, 2014 5:33pm 9.0 MG/DL N 7-17 Calcium Level May 18, 2014 5:33pm 9.2 MG/DL N 8.4-10.2 Calculated Osmolality May 18, 2014 5:33pm 272 MOSM/KG N 261-280 Carbon Dioxide Level May 18, 2014 5:33pm 31 MEQ/L H 22-30 Chloride Level May 18, 2014 5:33pm 103 MEQ/L N 98-107 Cholesterol Level November 13, 2008 5:55am 196 MG/DL N 132-199 Cholesterol/HDL Ratio November 13, 2008 5:55am 8.0 RATIO H 0-4.0 Conjugated Bilirubin August 21, 2012 11:00pm 0.00 MG/DL N 0.00-0.30 Creatinine May 18, 2014 5:33pm 0.8 MG/DL N 0.7-1.2 D-Dimer November 23, 2013 8:15pm 291 NG/ML H 0-230 <224 NG/ML=PRESUMPTIVE NEGATIVE FOR PE OR DVT>224 NG/ML=ADDITIONAL EVALUATION FOR PE OR DVT RECOMMENDED Eosinophils # (Auto) February 21, 2014 4:00pm 0.2 T/MM3 N 0-0.5 Eosinophils # (Manual) May 18, 2014 5:33pm 0.1 T/MM3 N 0-0.5 Eosinophils % (Manual) May 18, 2014 5:33pm 1.0 % N 0-4 Eosinophils (%) (Auto) February 21, 2014 4:00pm 2.4 % N 0-4 Erythrocyte Sedimentation Rate July 13, 2009 11:35pm 23 MM/HR H 0-20 Free Thyroxine July 21, 2008 7:25pm 0.82 NG/DL N 0.78-2.19 Free Triiodothyronine July 21, 2008 7:25pm 3.56 PG/ML N 2.77-5.27 Globulin May 18, 2014 5:33pm 2.8 G/DL N 2.4-3.6 Glucose Level May 18, 2014 5:33pm 94 MG/DL N 65-110 Group A Streptococcus Screen July 19, 2008 12:40am Negative - Strep culture confirmation to follow Hematocrit May 18, 2014 5:33pm 36.8 % N 36-46 Hemoglobin May 18, 2014 5:33pm 12.5 GM/DL N 12-16 Influenza Virus Types A,B [...] 25.0 % N 23-45 Lymphocytes (%) (Auto) February 21, 2014 4:00pm 36.6 % N 23-45 Magnesium Level November 07, 2013 9:58am 2.2 MG/DL N 1.6-2.3 Mean Corpuscular Hemoglobin May 18, 2014 5:33pm 31.6 UUG N 26-34 Mean Corpuscular Hemoglobin Concent May 18, 2014 5:33pm 34.0 GM/DL N 31-37 Mean Corpuscular Volume May 18, 2014 5:33pm 93.2 UM3 N 80-100 Mean Platelet Volume May 18, 2014 5:33pm 9.2 UM3 L 9.4-12.4 Metamyelocytes # July 26, 2008 7:05am 0.1 T/MM3 - Metamyelocytes % July 26, 2008 7:05am 1.0 % H 0-0 Monocytes # (Auto) February 21, 2014 4:00pm 0.6 T/MM3 N 0-0.8 Monocytes # (Manual) May 18, 2014 5:33pm 0.1 T/MM3 N 0-0.8 Monocytes % (Manual) May 18, 2014 5:33pm 1.0 % N 0-9.0 Monocytes (%) (Auto) February 21, 2014 4:00pm 7.0 % N 0-9.0 Neutrophils # (Auto) February 21, 2014 4:00pm 4.7 T/MM3 N 1.8-7.7 Neutrophils # (Manual) May 18, 2014 5:33pm 6.5 T/MM3 N 1.8-7.7 Neutrophils % (Manual) May 18, 2014 5:33pm 68.0 % H 33-66 Neutrophils (%) (Auto) February 21, 2014 4:00pm 53.4 % N 33-66 Platelet Count May 18, 2014 5:33pm 225 T/MM3 N 130-400 Potassium Level May 18, 2014 5:33pm 3.9 MEQ/L N 3.6-5 Prothromb Time International Ratio December 24, 2012 4:10pm 0.96 N 0.86- 1.10 THERAPUTIC RANGE=2.00-3.00 FOR ANTI-THROMBOSIS THERAPUTIC RANGE=2.50- 3.50 FOR IMPLANTED VALVE RDW Standard Deviation May 18, 2014 5:33pm 46.8 FL N 36.9-50.2 Red Blood Count May 18, 2014 5:33pm 3.95 M/MM3 L 4.00-5.20 Rheumatoid Factor July 21, 2008 7:25pm < 6 IU/ML 0-11 Salicylates Level November 08, 2013 8:37pm < 1.0 MG/DL L 2-20 Sodium Level May 18, 2014 5:33pm 142 MEQ/L N 134-144 Tests Not Done [...] Has specimen been collected/obtained? Y Urine Specific [place] May 18, 2014 4:45pm <=1.005 L - [...] 8:30pm Send out - White Blood Count May 18, 2014 5:33pm 9.5 T/MM3 N 4.5-11.0 Chemistry Specimen Hemolysis May 18, 2014 5:33pm < 15 0-25 0-25: No Hemolysis.26-70: Slight [...] decrease Phenytoin. Recommend specimen recollection. Urinalysis Comment May 18, 2014 4:45pm Microscopic not ind. - Has specimen been collected/obtained? Y Glucometer July 27, 2008 5:09pm 137 mg/dL - Lab Scanned Report November 08, 2013 9:33pm REFERENCE LAB [id number] - EKG November 12, 2008 4:01pm Complete - HDL Cholesterol Direct November 13, 2008 5:55am 22 MG/DL L 40-60 Anti-Nuclear Antibody (LAB) July 21, 2008 7:25pm Sent out - Turbidity May 18, 2014 5:33pm < 20 0-20 Reactive Lymphocytes % May 18, 2014 5:33pm 3.0 % H 0-0 Glomerular Filtration Rate Calc May 18, 2014 5:33pm 74 - Reactive Lymphocytes # May 18, 2014 5:33pm 0.3 T/MM3 H 0-0 Immature Granulocyte # (Auto) February 21, 2014 4:00pm 0.01 T/MM3 N 0.00- 0.03 Immature Granulocyte % (Auto) February 21, 2014 4:00pm 0.1 % N 0.0-0.5 Icterus Index May 18, 2014 5:33pm < 2 0-7 IU-Bpo-W-Type Natriuretic Peptide November 07, 2013 9:58am 88 PG/ML N 0-175 Rule in cut points: <50 years old=450; 50-75 years old=900; >75 years old=1800; When utilizing ProBNP rule-in cut points, adjustment for impaired renal function is typically not required. Urine Microscopic Not Indicated January 01, 2012 2:55pm Not indicated - Has specimen been collected/obtained? Y Gram Stain Cervix February 21, 2014 5:00pm Group A Streptococcus Culture Throat July 19, 2008 1:24am Urine Culture Urine, Voided-Not Cc-Midstream December 24, 2012 6:47pm Mixed Eugenia Prob. Contaminants Name: REGINE DIXON Unit #: [id number] : 1955 Sex: F Loc / Svc: ED DOS: 05/18/14 Signed Report #: [id number] DIAGNOSTIC IMAGING REPORT TYPE OF EXAM: CT [...] diverticulitis. There is a preliminary report by [facility]. . Procedures Procedure Status Date Provider(s) CT ABD & PELVIS W/O CONTRAST completed 05/18/14 COMPREHEN METABOLIC PANEL completed 05/18/14 URINALYSIS AUTO W/O SCOPE completed 05/18/14 BL SMEAR W/DIFF WBC COUNT completed 05/18/14 COMPLETE CBC AUTOMATED completed 05/18/14 THER/PROPH/DIAG INJ IV PUSH completed 05/18/14 TX/PRO/DX INJ NEW DRUG ADDON completed 05/18/14 EMERGENCY DEPT VISIT completed 05/18/14 [id number]"INJECTION, ONDANSETRON HYDROCHLORIDE, PER 1 MG" completed 05/18/14 Encounters Encounter Location Date/Time Registered Emergency Room [facility] 06/13/14 4:01pm Departed Emergency Room [facility] 05/18/14 4:36pm Recent Diagnosis
--- OUTSIDE RECORDS SUMMARY | 2016-08-26 17:33 | XMS REPORT | Continuity of Care Document ---
Author Author [facility] Organization [facility] Address Unknown Phone Unavailable Support Name Relationship Address Phone ADA GONCALVES DO Caregiver [facility] [address] [place] [address] BARTOLO FRIEDMAN MD Caregiver [address] [place] [address] RIYA POWERS Next Of Kin [address] [place] [address] Insurance Providers Payer Name Policy Number Subscriber Name Relationship Medicare [id number] Regine Dixon 20 Self Advance Directives Directive [...] Active Diverticulitis Unknown Active Dysuria Unknown Active Medications Medication Dose Route Sig [...] Mg PO TWICE A DAY 02/21/14 Active Ciprofloxacin HCl 500 Mg PO EVERY 12 HOURS 7 Days 05/18/14 Active Hydrocodone/Acetaminophen 1-2 Tab PO Q4H For PAIN 30 Qty 05/18/14 Active Social History Social History Problem Response Recorded Date/Time Chewing Tobacco Status No 11/09/2013 6:00pm Hx Substance Use N PAST USE OF MARIJUANA 05/18/2014 5:06pm Hx Alcohol Use No 05/18/2014 5:06pm Has the pt used tobacco in the last 12 months Yes 02/05/2012 11:23am Tobacco Usage smoke 11/07/2013 10:12am Query Response Start Date Stop Date Smoking Status Current every day smoker Hospital Discharge Instructions No hospital discharge instructions. Plan of Care No plan of care. Functional Status Query Response Date Recorded Physical Hygiene Self May 18, 2014 5:06pm Disabilities None May 18, 2014 5:06pm Devices Used None May 18, 2014 5:06pm Dressing Self May 18, 2014 5:06pm Ambulation Self November 09, 2013 6:00pm Diet Self May 18, 2014 5:06pm Mental Status Forgetful November 09, 2013 6:00pm Disabilities None May 18, 2014 5:06pm Devices Used None May 18, 2014 5:06pm Physical Hygiene Self May 18, 2014 5:06pm Dressing Self May 18, 2014 5:06pm Ambulation Self November 09, 2013 6:00pm Diet Self May 18, 2014 5:06pm Allergies, Adverse Reactions, Alerts Allergen Type Severity Reaction Status Last Updated Sulfamethoxazole Allergy Unknown Active 05/18/14 Trimethoprim Allergy Unknown Active 05/18/14 Fluoxetine Allergy Unknown Active 05/18/14 Immunizations Name Given Type Hx Influenza Vaccination Y 2013 Historical Hx Pneumococcal Vaccination No Historical Hx Tetanus, Diptheria, Pertussis NO OPEN AREAS Historical Hx Influenza Vaccination Y 2012 Historical Hx Tetanus Diptheria No Historical Hx Tetanus, Diptheria, Pertussis NO OPEN AREAS Historical Hx Tetanus Toxoid Vaccination No Historical Vital Signs Acute Vital Signs Vital Response Date/Time Temperature (Fahrenheit) 98.5 deg F (96.8 - 99.1) Temperature (Calculated Celsius) 36.14943 degrees C (36.0 - 37.3) Pulse Rate (adult) 70 bpm (60 - 100) Respiratory Rate 16 breaths/min (10 - 20) O2 Sat by Pulse Oximetry 94 % (90 - 100) Blood Pressure 110/72 mm Hg Height 5 ft 7 in Weight 197 lb Body Mass Index 30.0 kg/m^2 Results [...] Has specimen been collected/obtained? Y Urine Specific [place] May 18, 2014 4:45pm <=1.005 L - [...] Report November 08, 2013 9:33pm REFERENCE LAB [id number] - EKG November 12, 2008 4:01pm Complete [...] May 18, 2014 5:33pm < 2 0-7 SB-[id number]-I-Type Natriuretic Peptide November 07, 2013 9:58am 88 [...] 24, 2012 6:47pm Mixed Eugenia Prob. Contaminants Procedures Procedure Status Date Provider(s) HYDRATE IV INFUSION ADD-ON completed 02/21/14 THER/PROPH/DIAG INJ IV PUSH completed 02/21/14 TX/PRO/DX INJ NEW DRUG ADDON completed 02/21/14 TX/PRO/DX INJ NEW DRUG ADDON completed 02/21/14 Encounters Encounter Location Date/Time Departed Emergency Room [facility] 05/18/14 4:36pm Departed Emergency Room [facility] 02/21/14 3:05pm Recent Diagnosis
--- OUTSIDE RECORDS SUMMARY | 2016-08-26 17:33 | XMS REPORT | Continuity of Care Document ---
Author Author [facility] Organization [facility] Address Unknown Phone Unavailable Allergies Active Description Code Type Severity Reaction Onset Reported/Identified Relationship to Patient Clinical Status Yes Prozac Drug Allergy unknown 04/12/2009 Yes Septra Drug Allergy unknown 04/12/2009 Yes No Known Food Allergies Food Allergy 12/31/2011 Yes fluoxetine HCl fluoxetine HCl Drug Allergy Unknown HIVES 06/27/2016 Yes sulfamethoxazole sulfamethoxazole Drug Allergy Unknown HIVES 06/27/2016 Yes trimethoprim trimethoprim Drug Allergy Unknown HIVES 06/27/2016 Medications Problems Date Dx Coded Attending Type Code Diagnosis Diagnosed By 12/08/2011 Shashank Simmons MD Final 305.1 TOBACCO USE DISORDER 12/08/2011 Shashank Simmons MD Final 307.81 TENSION HEADACHE 12/08/2011 Shashank Simmons MD Final 311 DEPRESSIVE DISORDER NEC 12/08/2011 Shashank Simmons MD Final 429.9 HEART DISEASE NOS 12/08/2011 Shashank Simmons MD Admitting 784.0 HEADACHE 12/31/2011 Akbar Giles MD Final 305.1 TOBACCO USE DISORDER 12/31/2011 Akbar Giles MD 311 DEPRESSIVE DISORDER NEC 12/31/2011 Akbar Giles MD 786.50 CHEST PAIN NOS 12/31/2011 Akbar Giles MD V45.01 CARD PACEMAKER IN SITU Procedures Results Encounters ACCT No. Visit Date/Time Discharge Status Pt. Type Provider Facility Loc./Unit Complaint [id number] 03/31/2012 01:44:00 2011 02:25:00 DIS Emergency Shree Cheng MD [facility] on [facility] TERM [id number] 12/31/2011 15:51:00 2011 18:42:00 DIS Emergency Akbar Giles MD [facility] on [facility] TERM [id number] 12/08/2011 06:07:00 2011 07:40:00 DIS Emergency Iris MORALES, [facility] on [facility]
--- OUTSIDE RECORDS SUMMARY | 2016-08-26 17:34 | XMS REPORT | Continuity of Care Document ---
Author Author [facility] Organization [facility] Address Unknown Phone Unavailable Support Name Relationship Address Phone BARTOLO FRIEDMAN MD Caregiver [address] [place] [address] ROSSY LANZA MD Caregiver [address] [place] [address] [place] [phone] RIYA POWERS Next Of Kin [address] [place] [address] Insurance Providers Payer Name Policy Number Subscriber Name Relationship Medicare [id number] Regine Dixon 20 Self Advance Directives Directive [...] Active Vertigo Unknown Active Vertigo Unknown Active Medications Medication Dose Route Sig [...] 01/01/12 Discontinued Venlafaxine Hcl 300 Mg PO TWICE A DAY 01/01/12 Active Lorazepam 1 Mg PO THREE TIMES A DAY 04/24/12 06/18/12 Discontinued Clonazepam 1 Mg PO FOUR TIMES DAILY 06/18/12 Active Promethazine Hcl 25 Mg PO [...] 10/15/12 11/12/12 Discontinued Gabapentin 800 Mg PO THREE TIMES A DAY 11/09/13 Active Meclizine Hcl 25 Mg PO TWICE A DAY 11/21/13 Active Trazodone Hcl 50 Mg PO BEDTIME 11/21/13 Active Lorazepam 1 Mg PO FOUR TIMES DAILY 11/21/13 Active Risperidone 1 Mg PO TWICE A DAY 11/21/13 Active Ibuprofen 800 Mg PO Every 8 Hours 11/21/13 Active Social History Social History Problem Response Recorded Date/Time Smoking Status Current every day smoker 11/09/2013 6:00pm Chewing Tobacco Status No 11/09/2013 6:00pm Hx Substance Use N PAST USE OF MARIJUANA 11/21/2013 8:20pm Hx Alcohol Use No 11/21/2013 8:20pm Has the pt used tobacco in the last 12 months Yes 02/05/2012 11:23am Query Response Start Date Stop Date Smoking Status Current every day smoker Hospital Discharge Instructions No hospital discharge instructions. Plan of Care No plan of care. Functional Status Query Response Date Recorded Physical Hygiene Self November 21, 2013 8:20pm Disabilities Visual November 21, 2013 8:20pm Devices Used Glasses November 21, 2013 8:20pm Dressing Self November 21, 2013 8:20pm Ambulation Self November 09, 2013 6:00pm Diet Self November 21, 2013 8:20pm Mental Status Forgetful November 09, 2013 6:00pm Disabilities Visual November 21, 2013 8:20pm Devices Used Glasses November 21, 2013 8:20pm Physical Hygiene Self November 21, 2013 8:20pm Dressing Self November 21, 2013 8:20pm Ambulation Self November 09, 2013 6:00pm Diet Self November 21, 2013 8:20pm Allergies, Adverse Reactions, Alerts Allergen Type Severity Reaction Status Last Updated Sulfamethoxazole Allergy Unknown Active 11/21/13 Trimethoprim Allergy Unknown Active 11/21/13 Fluoxetine Allergy Unknown Active 11/21/13 Immunizations Name Given Type Hx Influenza Vaccination Y 2012 Historical Hx Pneumococcal Vaccination No Historical Hx Tetanus, Diptheria, Pertussis NO OPEN AREAS Historical Hx Influenza Vaccination Y 2012 Historical Hx Tetanus Diptheria No Historical Hx Tetanus, Diptheria, Pertussis NO OPEN AREAS Historical Hx Tetanus Toxoid Vaccination No Historical Vital Signs Acute Vital Signs Vital Response Date/Time Temperature (Fahrenheit) 97.8 deg F (96.8 - 99.1) Temperature (Calculated Celsius) 36.47768 degrees C (36.0 - 37.3) Pulse Rate (adult) 80 bpm (60 - 100) Respiratory Rate 12 breaths/min (10 - 20) O2 Sat by Pulse Oximetry 94 % (90 - 100) Blood Pressure 108/83 mm Hg Height 5 ft 8 in Weight 178 lb Body Mass Index 27.0 kg/m^2 Results Test Source Date Result Interp. Ref. Range Comments Acetaminophen Level November 08, 2013 8:37pm < 10 UG/ML L 10-30 TOXIC <4 HR POST INGESTION: >150 MG/L;TOXIC <12 HR POST INGESTION: >50 MG/L Activated Partial Thromboplast Time December 24, 2012 4:10pm 28.6 SEC N 24 -36 Ordering r/o VTE Yes Alanine Aminotransferase (ALT/SGPT) November 21, 2013 9:24pm 33 U/L N 9-52 Albumin November 21, 2013 9:24pm 3.7 G/DL N 3.5-5.0 Albumin/Globulin Ratio November 21, 2013 9:24pm 1.2 RATIO N 1.1-2.2 Alcohol, Quantitative November 08, 2013 8:37pm <10 MG/DL - Alkaline Phosphatase November 21, 2013 9:24pm 92 U/L N 38-126 Amylase Level August 11, 2012 11:40pm 104 U/L N 30-110 Anion Gap November 21, 2013 9:24pm 11 MEQ/L N 5-15 Aspartate Amino Transf (AST/SGOT) November 21, 2013 9:24pm 26 U/L N 14-36 BUN/Creatinine Ratio November 21, 2013 9:24pm 9 RATIO N 6-26 Band Neutrophils # March 12, 2013 5:00am 0.1 T/MM3 - Band Neutrophils % March 12, 2013 5:00am 1.0 % N 0-6 Basophils # (Auto) November 21, 2013 9:24pm 0.0 T/MM3 N 0-0.2 Basophils # (Manual) July 26, 2008 7:05am 0.0 T/MM3 N 0-0.2 Basophils % (Manual) July 26, 2008 7:05am 0.0 % N 0-2 Basophils (%) (Auto) November 21, 2013 9:24pm 0.3 % N 0-2 Blood Urea Nitrogen November 21, 2013 9:24pm 6.0 MG/DL L 7-17 Calcium Level November 21, 2013 9:24pm 8.8 MG/DL N 8.4-10.2 Calculated Osmolality November 21, 2013 9:24pm 271 MOSM/KG N 261-280 Carbon Dioxide Level November 21, 2013 9:24pm 27 MEQ/L N 22-30 Chloride Level November 21, 2013 9:24pm 104 MEQ/L N 98-107 Cholesterol Level November 13, 2008 5:55am 196 MG/DL N 132-199 Cholesterol/HDL Ratio November 13, 2008 5:55am 8.0 RATIO H 0-4.0 Conjugated Bilirubin August 21, 2012 11:00pm 0.00 MG/DL N 0.00-0.30 Creatinine November 21, 2013 9:24pm 0.7 MG/DL N 0.7-1.2 D-Dimer December 24, 2012 4:10pm 307 NG/ML H 0-230 <224 NG/ML= PRESUMPTIVE NEGATIVE FOR PE OR DVT>224 NG/ML=ADDITIONAL EVALUATION FOR PE OR DVT RECOMMENDED Eosinophils # (Auto) November 21, 2013 9:24pm 0.2 T/MM3 N 0-0.5 Eosinophils # (Manual) March 12, 2013 5:00am 0.5 T/MM3 N 0-0.5 Eosinophils % (Manual) March 12, 2013 5:00am 6.0 % H 0-4 Eosinophils (%) (Auto) November 21, 2013 9:24pm 3.5 % N 0-4 Erythrocyte Sedimentation Rate July 13, 2009 11:35pm 23 MM/HR H 0-20 Free Thyroxine July 21, 2008 7:25pm 0.82 NG/DL N 0.78-2.19 Free Triiodothyronine July 21, 2008 7:25pm 3.56 PG/ML N 2.77-5.27 Globulin November 21, 2013 9:24pm 3.0 G/DL N 2.4-3.6 Glucose Level November 21, 2013 9:24pm 92 MG/DL N 65-110 Group A Streptococcus Screen July 19, 2008 12:40am Negative - Strep culture confirmation to follow Hematocrit November 21, 2013 9:24pm 35.9 % L 36-46 Hemoglobin November 21, 2013 9:24pm 12.2 GM/DL N 12-16 Influenza Virus Types A,B Antigen July 19, 2008 12:55am Negative - LDL Cholesterol, Calculated November 13, 2008 5:55am 138.8 N 66-159 Lipase March 12, 2013 5:00am 184 U/L N 23-300 Lymphocytes # (Auto) November 21, 2013 9:24pm 2.8 T/MM3 N 1-4.8 Lymphocytes # (Manual) March 12, 2013 5:00am 4.6 T/MM3 N 1-4.8 Lymphocytes % (Manual) March 12, 2013 5:00am 52.0 % H 23-45 Lymphocytes (%) (Auto) November 21, 2013 9:24pm 44.0 % N 23-45 Magnesium Level November 07, 2013 9:58am 2.2 MG/DL N 1.6-2.3 Mean Corpuscular Hemoglobin November 21, 2013 9:24pm 31.9 UUG N 26-34 Mean Corpuscular Hemoglobin Concent November 21, 2013 9:24pm 34.0 GM/DL N 31 -37 Mean Corpuscular Volume November 21, 2013 9:24pm 94.0 UM3 N 80-100 Mean Platelet Volume November 21, 2013 9:24pm 9.2 UM3 L 9.4-12.4 Metamyelocytes # July 26, 2008 7:05am 0.1 T/MM3 - Metamyelocytes % July 26, 2008 7:05am 1.0 % H 0-0 Monocytes # (Auto) November 21, 2013 9:24pm 0.5 T/MM3 N 0-0.8 Monocytes # (Manual) March 12, 2013 5:00am 0.4 T/MM3 N 0-0.8 Monocytes % (Manual) March 12, 2013 5:00am 4.0 % N 0-9.0 Monocytes (%) (Auto) November 21, 2013 9:24pm 7.7 % N 0-9.0 Neutrophils # (Auto) November 21, 2013 9:24pm 2.8 T/MM3 N 1.8-7.7 Neutrophils # (Manual) March 12, 2013 5:00am 3.3 T/MM3 N 1.8-7.7 Neutrophils % (Manual) March 12, 2013 5:00am 37.0 % N 33-66 Neutrophils (%) (Auto) November 21, 2013 9:24pm 44.3 % N 33-66 Platelet Count November 21, 2013 9:24pm 248 T/MM3 N 130-400 Potassium Level November 21, 2013 9:24pm 3.9 MEQ/L N 3.6-5 Prothromb Time International Ratio December 24, 2012 4:10pm 0.96 N 0.86- 1.10 THERAPUTIC RANGE=2.00-3.00 FOR ANTI-THROMBOSIS THERAPUTIC RANGE=2.50- 3.50 FOR IMPLANTED VALVE RDW Standard Deviation November 21, 2013 9:24pm 46.1 FL N 36.9-50.2 Red Blood Count November 21, 2013 9:24pm 3.82 M/MM3 L 4.00-5.20 Rheumatoid Factor July 21, 2008 7:25pm < 6 IU/ML 0-11 Salicylates Level November 08, 2013 8:37pm < 1.0 MG/DL L 2-20 Sodium Level November 21, 2013 9:24pm 142 MEQ/L N 134-144 Tests Not Done July 16, 2009 7:29pm Not done - Has specimen been collected/obtained? Y Thyroid Stimulating Hormone (TSH) December 24, 2012 4:10pm 0.46 MIU/L L 0.47-4.68 Total Bilirubin November 21, 2013 9:24pm 0.20 MG/DL N 0.20-1.30 Total Creatine Kinase July 21, 2008 7:25pm 53 U/L N 30-135 Total Protein November 21, 2013 9:24pm 6.7 G/DL N 6.3-8.2 Triglycerides Level November 13, 2008 5:55am 176 MG/DL H 35-135 Troponin I November 21, 2013 9:24pm < 0.012 ng/ml 0-0.12 Unconjugated Bilirubin August 21, 2012 11:00pm 0.00 MG/DL N 0.00-1.10 Urine Bacteria December 24, 2012 6:22pm 1+ H - Has specimen been collected/obtained? Y Urine Bilirubin November 21, 2013 9:42pm Negative - Has specimen been collected/obtained? Y Urine Blood November 21, 2013 9:42pm Negative - Has specimen been collected/obtained? Y Urine Collection Type November 21, 2013 9:42pm Voided-not cc-midstr - Has specimen been collected/obtained? Y Urine Color November 21, 2013 9:42pm Yellow - Has specimen been collected /obtained? Y Urine Culture Indicated December 24, 2012 6:22pm Cult reflexed &setup - Has specimen been collected/obtained? Y Urine Drug Screen Confirmation July 14, 2009 12:04am Sent out - Urine Glucose (UA) November 21, 2013 9:42pm Negative - Has specimen been collected/obtained? Y Urine Ketones November 21, 2013 9:42pm Negative - Has specimen been collected/obtained? Y Urine Leukocyte Esterase November 21, 2013 9:42pm Negative - Has specimen been collected/obtained? Y Urine Nitrite November 21, 2013 9:42pm Negative - Has specimen been collected/obtained? Y Urine Protein November 21, 2013 9:42pm Negative - Has specimen been collected/obtained? Y Urine RBC December 24, 2012 6:22pm None seen /HPF - Has specimen been collected/obtained? Y Urine Specific [place] November 21, 2013 9:42pm <=1.005 L - Has specimen been collected/obtained? Y Urine Squamous Epithelial Cells December 24, 2012 6:22pm >50 - Has specimen been collected/obtained? Y Urine Turbidity November 21, 2013 9:42pm Clear - Has specimen been collected/obtained? Y Urine Urobilinogen November 21, 2013 9:42pm 0.2 EU/DL - Has specimen been collected/obtained? Y Urine WBC December 24, 2012 6:22pm 10-20 /HPF H - Has specimen been collected/obtained? Y Urine pH November 21, 2013 9:42pm 5.5 - Has specimen been collected/ obtained? Y VLDL Cholesterol November 13, 2008 5:55am 35.2 MG/DL H 0-28 Vitamin D 1,25-Dihydroxy November 12, 2008 8:30pm Send out - White Blood Count November 21, 2013 9:24pm 6.3 T/MM3 N 4.5-11.0 Chemistry Specimen Hemolysis November 21, 2013 9:24pm 22 N 0-25 0-25: No Hemolysis.26-70: Slight Hemolysis - [...] decrease Phenytoin. Recommend specimen recollection. Urinalysis Comment November 21, 2013 9:42pm Microscopic not ind. - Has specimen been collected/obtained? Y Glucometer July 27, 2008 5:09pm 137 mg/dL - Lab Scanned Report November 08, 2013 9:33pm REFERENCE LAB [id number] - EKG November 12, 2008 4:01pm Complete - HDL Cholesterol Direct November 13, 2008 5:55am 22 MG/DL L 40-60 Anti-Nuclear Antibody (LAB) July 21, 2008 7:25pm Sent out - Turbidity November 21, 2013 9:24pm < 20 0-20 Glomerular Filtration Rate Calc November 21, 2013 9:24pm 87 - Immature Granulocyte # (Auto) November 21, 2013 9:24pm 0.01 T/MM3 N 0.00- 0.03 Immature Granulocyte % (Auto) November 21, 2013 9:24pm 0.2 % N 0.0-0.5 Icterus Index November 21, 2013 9:24pm < 2 0-7 II-Zmy-M-Type Natriuretic Peptide November 07, 2013 9:58am 88 PG/ML N 0-175 Rule in cut points: <50 years old=450; 50-75 years old=900; >75 years old=1800; When utilizing ProBNP rule-in cut points, adjustment for impaired renal function is typically not required. Urine Microscopic Not Indicated January 01, 2012 2:55pm Not indicated - Has specimen been collected/obtained? Y Group A Streptococcus Culture Throat July 19, 2008 1:24am Urine Culture Urine, Voided-Not Cc-Midstream December 24, 2012 6:47pm Mixed Eugenia Prob. Contaminants Procedures Procedure Status Date Provider(s) THER/PROPH/DIAG INJ IV PUSH completed 09/20/13 TX/PRO/DX INJ NEW DRUG ADDON completed 09/20/13 TX/PRO/DX INJ NEW DRUG ADDON completed 09/20/13 TX/PRO/DX INJ NEW DRUG ADDON completed 09/20/13 HYDRATE IV INFUSION ADD-ON completed 09/20/13 THER/PROPH/DIAG INJ IV PUSH completed 11/07/13 TX/PRO/DX INJ NEW DRUG ADDON completed 11/07/13 THER/PROPH/DIAG INJ IV PUSH completed 11/08/13 TX/PRO/DX INJ NEW DRUG ADDON completed 11/08/13 THER/PROPH/DIAG INJ IV PUSH completed 11/09/13 TX/PRO/DX INJ NEW DRUG ADDON completed 11/09/13 HYDRATE IV INFUSION ADD-ON completed 11/09/13 Encounters Encounter Location Date/Time Departed Emergency Room [facility] 11/21/13 8:12pm Departed Emergency Room [facility] 11/09/13 5:52pm Departed Emergency Room [facility] 11/08/13 8:14pm Departed Emergency Room [facility] 11/07/13 9:48am Departed Emergency Room [facility] 09/20/13 2:14am Recent Diagnosis
--- OUTSIDE RECORDS SUMMARY | 2016-08-26 17:34 | XMS REPORT | Continuity of Care Document ---
Author Author [facility] Organization [facility] Address Unknown Phone Unavailable Support Name Relationship Address Phone SANDRA MANTILLA Caregiver [address] [place] [address] RHONDA TRUJILLO MD Caregiver [address] [place] [address] [place] [phone] RIYA POWERS Next Of Kin [address] [place] [address] Insurance Providers Payer Name Policy Number Subscriber Name Relationship Medicare [id number] Regine Dixon 20 Self Advance Directives Directive [...] dental Unknown Active Pain, dental Unknown Active Diverticulitis Unknown Active Diverticulitis Unknown Active Gastritis Unknown Active Medications Medication Dose Route Sig [...] Mg PO TWICE A DAY 07/06/14 Active Ciprofloxacin HCl 1 Tab PO TWICE A DAY 14 Qty 08/08/14 Active Metronidazole 500 Mg PO Q8H @ 0100/0900/1700 21 Qty Take 1 tablet, by mouth, every 8 hours. 08/08/14 Active Hydrocodone/Acetaminophen 1 Tab PO EVERY 4-6 HOURS PRN PAIN 10 Qty 09/17 Active Social History Social History Problem Response Recorded Date/Time Chewing Tobacco Status No 11/09/2013 6:00pm Hx Substance Use N PAST USE OF MARIJUANA 08/08/2014 12:16am Hx Alcohol Use No 08/08/2014 12:16am Has the pt used tobacco in the last 12 months Yes 07/06/2014 8:31am Tobacco Usage smoke 11/07/2013 10:12am Query Response Start Date Stop Date Smoking Status Current every day smoker Hospital Discharge Instructions No hospital discharge instructions. Plan of Care No plan of care. Functional Status Query Response Date Recorded Physical Hygiene Self August 08, 2014 12:16am Disabilities Visual August 08, 2014 12:16am Devices Used Glasses August 08, 2014 12:16am Dressing Self August 08, 2014 12:16am Ambulation Self November 09, 2013 6:00pm Diet Self August 08, 2014 12:16am Mental Status Forgetful November 09, 2013 6:00pm Disabilities Visual August 08, 2014 12:16am Devices Used Glasses August 08, 2014 12:16am Physical Hygiene Self August 08, 2014 12:16am Dressing Self August 08, 2014 12:16am Ambulation Self November 09, 2013 6:00pm Diet Self August 08, 2014 12:16am Allergies, Adverse Reactions, Alerts Allergen Type Severity Reaction Status Last Updated Sulfamethoxazole Allergy Unknown Active 08/07/14 Trimethoprim Allergy Unknown Active 08/07/14 Fluoxetine Allergy Unknown Active 08/07/14 Immunizations Name Given Type Hx Influenza Vaccination Y 2013 Historical Hx Pneumococcal Vaccination No Historical Hx Tetanus, Diptheria, Pertussis NO OPEN AREAS Historical Hx Influenza Vaccination Y 2013 Historical Hx Tetanus Diptheria No Historical Hx Tetanus, Diptheria, Pertussis NO OPEN AREAS Historical Hx Tetanus Toxoid Vaccination No Historical Vital Signs Acute Vital Signs Vital Response Date/Time Temperature (Fahrenheit) 97.0 deg F (96.8 - 99.1) Temperature (Calculated Celsius) 36.07383 degrees C (36.0 - 37.3) Pulse Rate (adult) 78 bpm (60 - 100) Respiratory Rate 20 breaths/min (10 - 20) O2 Sat by Pulse Oximetry 92 % (90 - 100) Blood Pressure 104/57 mm Hg Height 5 ft 7 in Weight 205 lb Body Mass Index 32.0 kg/m^2 Results Test Source Date Result Interp. Ref. Range Comments Acetaminophen Level November 08, 2013 8:37pm < 10 UG/ML L 10-30 TOXIC <4 HR POST INGESTION: >150 MG/L;TOXIC <12 HR POST INGESTION: >50 MG/L Activated Partial Thromboplast Time July 06, 2014 8:17am 26.6 SEC N 24- 36 Alanine Aminotransferase (ALT/SGPT) August 07, 2014 11:47pm 56 U/L H 9- 52 Albumin August 07, 2014 11:47pm 3.7 G/DL N 3.5-5.0 Albumin/Globulin Ratio August 07, 2014 11:47pm 1.2 RATIO N 1.1-2.2 Alcohol, Quantitative November 08, 2013 8:37pm <10 MG/DL - Alkaline Phosphatase August 07, 2014 11:47pm 89 U/L N 38-126 Amylase Level August 07, 2014 11:47pm 74 U/L N 30-110 Anion Gap August 07, 2014 11:47pm 12 MEQ/L N 5-15 Anti-Nuclear Antibody (LAB) July 21, 2008 7:25pm Sent out - Aspartate Amino Transf (AST/SGOT) August 07, 2014 11:47pm 46 U/L H 14-36 BUN/Creatinine Ratio August 07, 2014 11:47pm 10 RATIO N 6-26 Band Neutrophils # May 18, 2014 5:33pm 0.2 T/MM3 - Band Neutrophils % May 18, 2014 5:33pm 2.0 % N 0-6 Basophils # (Auto) August 07, 2014 11:47pm 0-0.2 Basophils # (Manual) July 26, 2008 7:05am 0.0 T/MM3 N 0-0.2 Basophils % (Manual) July 26, 2008 7:05am 0.0 % N 0-2 Basophils (%) (Auto) August 07, 2014 11:47pm 0-2 Blood Urea Nitrogen August 07, 2014 11:47pm 8.0 MG/DL N 7-17 Calcium Level August 07, 2014 11:47pm 9.0 MG/DL N 8.4-10.2 Calculated Osmolality August 07, 2014 11:47pm 274 MOSM/KG N 261-280 Carbon Dioxide Level August 07, 2014 11:47pm 27 MEQ/L N 22-30 Chemistry Specimen Hemolysis August 07, 2014 11:47pm < 15 0-25 0-25: No Hemolysis.26-70: Slight [...] decrease Phenytoin. Recommend specimen recollection. Chloride Level August 07, 2014 11:47pm 104 MEQ/L N 98-107 Cholesterol Level November 13, 2008 5:55am 196 MG/DL N 132-199 Cholesterol/HDL Ratio November 13, 2008 5:55am 8.0 RATIO H 0-4.0 Conjugated Bilirubin August 21, 2012 11:00pm 0.00 MG/DL N 0.00-0.30 Creatinine August 07, 2014 11:47pm 0.8 MG/DL N 0.7-1.2 D-Dimer November 23, 2013 8:15pm 291 NG/ML H 0-230 <224 NG/ML=PRESUMPTIVE NEGATIVE FOR PE OR DVT>224 NG/ML=ADDITIONAL EVALUATION FOR PE OR DVT RECOMMENDED EKG November 12, 2008 4:01pm Complete - Eosinophils # (Auto) August 07, 2014 11:47pm 0-0.5 Eosinophils # (Manual) May 18, 2014 5:33pm 0.1 T/MM3 N 0-0.5 Eosinophils % (Manual) May 18, 2014 5:33pm 1.0 % N 0-4 Eosinophils (%) (Auto) August 07, 2014 11:47pm 0-4 Erythrocyte Sedimentation Rate July 13, 2009 11:35pm 23 MM/HR H 0-20 Free Thyroxine July 21, 2008 7:25pm 0.82 NG/DL N 0.78-2.19 Free Triiodothyronine July 21, 2008 7:25pm 3.56 PG/ML N 2.77-5.27 Globulin August 07, 2014 11:47pm 3.2 G/DL N 2.4-3.6 Glomerular Filtration Rate Calc August 07, 2014 11:47pm 74 - Glucometer July 27, 2008 5:09pm 137 mg/dL - Glucose Level August 07, 2014 11:47pm 114 MG/DL H 65-110 Group A Streptococcus Screen July 19, 2008 12:40am Negative - Strep culture confirmation to follow HDL Cholesterol Direct November 13, 2008 5:55am 22 MG/DL L 40-60 Hematocrit August 07, 2014 11:47pm 37.9 % N 36-46 Hemoglobin August 07, 2014 11:47pm 13.2 GM/DL N 12-16 Icterus Index August 07, 2014 11:47pm < 2 0-7 Immature Granulocyte # (Auto) August 07, 2014 11:47pm 0.00-0.03 Immature Granulocyte % (Auto) August 07, 2014 11:47pm 0.0-0.5 Influenza Virus Types A,B Antigen July 19, 2008 12:55am Negative - LDL Cholesterol, Calculated November 13, 2008 5:55am 138.8 N 66-159 Lab Scanned Report November 08, 2013 9:33pm REFERENCE LAB [id number] - Lipase August 07, 2014 11:47pm 140 U/L N 23-300 Lymphocytes # (Auto) August 07, 2014 11:47pm 3.2 T/MM3 N 1-4.8 Lymphocytes # (Manual) May 18, 2014 5:33pm 2.4 T/MM3 N 1-4.8 Lymphocytes % (Manual) May 18, 2014 5:33pm 25.0 % N 23-45 Lymphocytes (%) (Auto) August 07, 2014 11:47pm 34.3 % N 23-45 Magnesium Level November 07, 2013 9:58am 2.2 MG/DL N 1.6-2.3 Mean Corpuscular Hemoglobin August 07, 2014 11:47pm 32.0 UUG N 26-34 Mean Corpuscular Hemoglobin Concent August 07, 2014 11:47pm 34.8 GM/DL N 31-37 Mean Corpuscular Volume August 07, 2014 11:47pm 91.8 UM3 N 80-100 Mean Platelet Volume August 07, 2014 11:47pm 8.6 UM3 L 9.4-12.4 Metamyelocytes # July 26, 2008 7:05am 0.1 T/MM3 - Metamyelocytes % July 26, 2008 7:05am 1.0 % H 0-0 Monocytes # (Auto) August 07, 2014 11:47pm 0.7 T/MM3 N 0-0.8 Monocytes # (Manual) May 18, 2014 5:33pm 0.1 T/MM3 N 0-0.8 Monocytes % (Manual) May 18, 2014 5:33pm 1.0 % N 0-9.0 Monocytes (%) (Auto) August 07, 2014 11:47pm 7.7 % N 0-9.0 GH-Ubz-A-Type Natriuretic Peptide November 07, 2013 9:58am 88 PG/ML N 0-175 Rule in cut points: <50 years old=450; 50-75 years old=900; >75 years old=1800; When utilizing ProBNP rule-in cut points, adjustment for impaired renal function is typically not required. Neutrophils # (Auto) August 07, 2014 11:47pm 5.5 T/MM3 N 1.8-7.7 Neutrophils # (Manual) May 18, 2014 5:33pm 6.5 T/MM3 N 1.8-7.7 Neutrophils % (Manual) May 18, 2014 5:33pm 68.0 % H 33-66 Neutrophils (%) (Auto) August 07, 2014 11:47pm 58.0 % N 33-66 Platelet Count August 07, 2014 11:47pm 272 T/MM3 N 130-400 Potassium Level August 07, 2014 11:47pm 3.8 MEQ/L N 3.6-5 Prothromb Time International Ratio July 06, 2014 8:17am 0.97 N 0.81- 1.09 THERAPUTIC RANGE=2.00-3.00 FOR ANTI-THROMBOSIS THERAPUTIC RANGE=2.50- 3.50 FOR IMPLANTED VALVE RDW Standard Deviation August 07, 2014 11:47pm 48.8 FL N 36.9-50.2 Reactive Lymphocytes # May 18, 2014 5:33pm 0.3 T/MM3 H 0-0 Reactive Lymphocytes % May 18, 2014 5:33pm 3.0 % H 0-0 Red Blood Count August 07, 2014 11:47pm 4.13 M/MM3 N 4.00-5.20 Rheumatoid Factor July 21, 2008 7:25pm < 6 IU/ML 0-11 Salicylates Level November 08, 2013 8:37pm < 1.0 MG/DL L 2-20 Sodium Level August 07, 2014 11:47pm 143 MEQ/L N 134-144 Tests Not Done July 16, 2009 7:29pm Not done - Has specimen been collected/obtained? Y Thyroid Stimulating Hormone (TSH) December 24, 2012 4:10pm 0.46 MIU/L L 0.47-4.68 Total Bilirubin August 07, 2014 11:47pm 0.20 MG/DL N 0.20-1.30 Total Creatine Kinase July 21, 2008 7:25pm 53 U/L N 30-135 Total Protein August 07, 2014 11:47pm 6.9 G/DL N 6.3-8.2 Triglycerides Level November 13, 2008 5:55am 176 MG/DL H 35-135 Troponin I November 21, 2013 9:24pm < 0.012 ng/ml 0-0.12 Turbidity August 07, 2014 11:47pm < 20 0-20 Unconjugated Bilirubin August 21, 2012 11:00pm 0.00 MG/DL N 0.00-1.10 Urinalysis Comment August 07, 2014 11:55pm Microscopic not ind. - Has specimen been collected/obtained? Y Urine Bacteria December 24, 2012 6:22pm 1+ H - Has specimen been collected/obtained? Y Urine Bilirubin August 07, 2014 11:55pm Negative - Has specimen been collected/obtained? Y Urine Blood August 07, 2014 11:55pm Negative - Has specimen been collected/obtained? Y Urine Collection Type August 07, 2014 11:55pm Cleancatch-midstream - Has specimen been collected/obtained? Y Urine Color August 07, 2014 11:55pm Yellow - Has specimen been collected/obtained? Y Urine Culture Indicated December 24, 2012 6:22pm Cult reflexed &setup - Has specimen been collected/obtained? Y Urine Drug Screen Confirmation July 14, 2009 12:04am Sent out - Urine Glucose (UA) August 07, 2014 11:55pm Negative - Has specimen been collected/obtained? Y Urine Ketones August 07, 2014 11:55pm Negative - Has specimen been collected/obtained? Y Urine Leukocyte Esterase August 07, 2014 11:55pm Negative - Has specimen been collected/obtained? Y Urine Microscopic Not Indicated January 01, 2012 2:55pm Not indicated - Has specimen been collected/obtained? Y Urine Nitrite August 07, 2014 11:55pm Negative - Has specimen been collected/obtained? Y Urine Protein August 07, 2014 11:55pm Negative - Has specimen been collected/obtained? Y Urine RBC December 24, 2012 6:22pm None seen /HPF - Has specimen been collected/obtained? Y Urine Specific [place] August 07, 2014 11:55pm >=1.030 H - Has specimen been collected/obtained? Y Urine Squamous Epithelial Cells December 24, 2012 6:22pm >50 - Has specimen been collected/obtained? Y Urine Turbidity August 07, 2014 11:55pm Clear - Has specimen been collected/obtained? Y Urine Urobilinogen August 07, 2014 11:55pm 0.2 EU/DL - Has specimen been collected/obtained? Y Urine WBC December 24, 2012 6:22pm 10-20 /HPF H - Has specimen been collected/obtained? Y Urine pH August 07, 2014 11:55pm 5.5 - Has specimen been collected/ obtained? Y VLDL Cholesterol November 13, 2008 5:55am 35.2 MG/DL H 0-28 Vitamin D 1,25-Dihydroxy November 12, 2008 8:30pm Send out - White Blood Count August 07, 2014 11:47pm 9.4 T/MM3 N 4.5-11.0 Gram Stain Cervix February 21, 2014 5:00pm Group A Streptococcus Culture Throat July 19, 2008 1:24am Urine Culture Urine, Voided-Not Cc-Midstream December 24, 2012 6:47pm Mixed Eugenia Prob. Contaminants Name: REGINE DIXON Unit #: [id number] : [id number] Sex: F Loc / Svc: ED DOS: 05/18/14 Signed Report #: [id number] DIAGNOSTIC IMAGING REPORT TYPE OF EXAM: CT [...] diverticulitis. There is a preliminary report by virtual radiologic. . Procedures Procedure Status Date Provider(s) CT ABD & PELVIS W/O CONTRAST completed 05/18/14 COMPREHEN METABOLIC PANEL completed 05/18/14 URINALYSIS AUTO W/O SCOPE completed 05/18/14 BL SMEAR W/DIFF WBC COUNT completed 05/18/14 COMPLETE CBC AUTOMATED completed 05/18/14 THER/PROPH/DIAG INJ IV PUSH completed 05/18/14 TX/PRO/DX INJ NEW DRUG ADDON completed 05/18/14 EMERGENCY DEPT VISIT completed 05/18/14 [id number]"INJECTION, ONDANSETRON HYDROCHLORIDE, PER 1 MG" completed 05/18/14 EMERGENCY DEPT VISIT completed 06/13/14 [id number] ITEM OR SERVICE completed 06/13/14 REMV&REPLC PM GEN DUAL LEAD completed 07/06/14 LUMA PERRY MD ROUTINE VENIPUNCTURE completed 07/06/14 METABOLIC PANEL TOTAL CA completed 07/06/14 COMPLETE CBC W/AUTO DIFF WBC completed 07/06/14 PROTHROMBIN TIME completed 07/06/14 THROMBOPLASTIN TIME PARTIAL completed 07/06/14 ELECTROCARDIOGRAM TRACING completed 07/06/14 [id number] ITEM OR SERVICE completed 07/06/14 [id number] ITEM OR SERVICE completed 07/06/14"PACEMAKER, DUAL CHAMBER, RATE-RESPONSIVE (IMPLANTABLE completed "INJECTION, CEFAZOLIN SODIUM, 500 MG" completed 07/06/14"INJECTION, CEFAZOLIN SODIUM, 500 MG" completed 07/06/14"INJECTION, MIDAZOLAM HYDROCHLORIDE, PER 1 MG" completed 07/06/14"INJECTION, MIDAZOLAM HYDROCHLORIDE, PER 1 MG" completed 07/06/14"INJECTION, FENTANYL CITRATE, 0.1 MG" completed 07/06/14"INJECTION, FENTANYL CITRATE, 0.1 MG" completed 07/06/14"INFUSION, NORMAL SALINE SOLUTION , 250 CC" completed 07/06/14"INFUSION, NORMAL SALINE SOLUTION , 250 CC" completed 07/06/14 Encounters Encounter Location Date/Time Departed Emergency Room [facility] 08/07/14 10:12pm Departed Clinic [facility] 07/06/14 7:50am Departed Emergency Room [facility] 06/13/14 4:01pm Departed Emergency Room [facility] 05/18/14 4:36pm Recent Diagnosis
--- OUTSIDE RECORDS SUMMARY | 2016-08-26 17:34 | XMS REPORT | Continuity of Care Document ---
Author Author [facility] Organization [facility] Address Unknown Phone Unavailable Support Name Relationship Address Phone JORDY MALIK MD Caregiver [facility] [address] [address] Unavailable RIYA POWERS Next Of Kin [address] [place] [address] Insurance Providers Payer Name Policy Number Subscriber Name Relationship Medicare [id number] Regine Dixon 20 Self Advance Directives Directive Response Recorded Date/Time Advanced Directives Type None 11/07/13 9:48am Problems Medical Problems Problem Onset Date Status [...] Generalized pain Unknown Active Depression Unknown Active Medications Medication Dose Route Sig [...] Bit/Acetaminophen 1 Udtab PO NEEDED 08/10/09 Discontinued Gabapentin 600 Mg PO THREE TIMES A DAY 12/14/09 Active Aripiprazole 5 Mg PO DAILY 10/31/09 12/09/09 Discontinued Hydrocodone Bit/Acetaminophen 1 Tab PO NEEDED 12/14/09 01/01/12 Discontinued Venlafaxine Hcl 300 Mg PO TWICE A DAY 01/01/12 Active Lorazepam 1 Mg PO THREE TIMES A DAY 04/24/12 06/18/12 Discontinued Clonazepam 2 Mg PO THREE TIMES A DAY 06/18/12 [...] 25 Mg PO NEEDED 10/15/12 11/12/12 Discontinued Social History Social History Problem Response Recorded Date/Time Smoking Status Current every day smoker 11/08/2013 8:20pm Chewing Tobacco Status No 11/08/2013 8:20pm Hx Substance Use N PAST USE OF MARIJUANA 11/08/2013 8:20pm Hx Alcohol Use No 11/08/2013 8:20pm Has the pt used tobacco in the last 12 months Yes 02/05/2012 11:23am Query Response Start Date Stop Date Smoking Status Current every day smoker Hospital Discharge Instructions No hospital discharge instructions. Plan of Care No plan of care. Functional Status Query Response Date Recorded Mental Status Alert November 08, 2013 8:20pm Allergies, Adverse Reactions, Alerts Allergen Type Severity Reaction Status Last Updated Sulfamethoxazole Allergy Unknown Active 11/08/13 Trimethoprim Allergy Unknown Active 11/08/13 Fluoxetine Allergy Unknown Active 11/08/13 Immunizations Name Given Type Hx Influenza Vaccination [...] F (96.8 - 99.1) Temperature (Calculated Celsius) 36.26104 degrees C (36.0 - 37.3) Pulse Rate (adult) 70 bpm (60 - 100) Respiratory Rate 16 breaths/min (10 - 20) O2 Sat by Pulse Oximetry 95 % (90 - 100) Blood Pressure 131/75 mm Hg Height 5 ft 7 in Weight 170 lb Body Mass Index 26.0 kg/m^2 Results Test Source Date Result Interp. Ref. Range Comments Acetaminophen Level November 08, 2013 8:37pm < 10 UG/ML L 10-30 TOXIC <4 HR POST INGESTION: >150 MG/L;TOXIC <12 HR POST INGESTION: >50 MG/L Activated Partial Thromboplast Time December 24, 2012 4:10pm 28.6 SEC N 24 -36 Ordering r/o VTE Yes Alanine Aminotransferase (ALT/SGPT) November 08, 2013 8:37pm 26 U/L N 9-52 Albumin November 08, 2013 8:37pm 3.9 G/DL N 3.5-5.0 Albumin/Globulin Ratio November 08, 2013 8:37pm 1.3 RATIO N 1.1-2.2 Alcohol, Quantitative November 08, 2013 8:37pm <10 MG/DL - Alkaline Phosphatase November 08, 2013 8:37pm 90 U/L N 38-126 Amylase Level August 11, 2012 11:40pm 104 U/L N 30-110 Anion Gap November 08, 2013 8:37pm 10 MEQ/L N 5-15 Aspartate Amino Transf (AST/SGOT) November 08, 2013 8:37pm 23 U/L N 14-36 BUN/Creatinine Ratio November 08, 2013 8:37pm 14 RATIO N 6-26 Band Neutrophils # March 12, 2013 5:00am 0.1 T/MM3 - Band Neutrophils % March 12, 2013 5:00am 1.0 % N 0-6 Basophils # (Auto) November 08, 2013 8:37pm 0.0 T/MM3 N 0-0.2 Basophils # (Manual) July 26, 2008 7:05am 0.0 T/MM3 N 0-0.2 Basophils % (Manual) July 26, 2008 7:05am 0.0 % N 0-2 Basophils (%) (Auto) November 08, 2013 8:37pm 0.4 % N 0-2 Blood Urea Nitrogen November 08, 2013 8:37pm 10.0 MG/DL N 7-17 Calcium Level November 08, 2013 8:37pm 9.3 MG/DL N 8.4-10.2 Calculated Osmolality November 08, 2013 8:37pm 274 MOSM/KG N 261-280 Carbon Dioxide Level November 08, 2013 8:37pm 27 MEQ/L N 22-30 Chloride Level November 08, 2013 8:37pm 106 MEQ/L N 98-107 Cholesterol Level November 13, 2008 5:55am 196 MG/DL N 132-199 Cholesterol/HDL Ratio November 13, 2008 5:55am 8.0 RATIO H 0-4.0 Conjugated Bilirubin August 21, 2012 11:00pm 0.00 MG/DL N 0.00-0.30 Creatinine November 08, 2013 8:37pm 0.7 MG/DL N 0.7-1.2 D-Dimer December 24, 2012 4:10pm 307 NG/ML H 0-230 <224 NG/ML= PRESUMPTIVE NEGATIVE FOR PE OR DVT>224 NG/ML=ADDITIONAL EVALUATION FOR PE OR DVT RECOMMENDED Eosinophils # (Auto) November 08, 2013 8:37pm 0.1 T/MM3 N 0-0.5 Eosinophils # (Manual) March 12, 2013 5:00am 0.5 T/MM3 N 0-0.5 Eosinophils % (Manual) March 12, 2013 5:00am 6.0 % H 0-4 Eosinophils (%) (Auto) November 08, 2013 8:37pm 1.9 % N 0-4 Erythrocyte Sedimentation Rate July 13, 2009 11:35pm 23 MM/HR H 0-20 Free Thyroxine July 21, 2008 7:25pm 0.82 NG/DL N 0.78-2.19 Free Triiodothyronine July 21, 2008 7:25pm 3.56 PG/ML N 2.77-5.27 Globulin November 08, 2013 8:37pm 3.1 G/DL N 2.4-3.6 Glucose Level November 08, 2013 8:37pm 98 MG/DL N 65-110 Group A Streptococcus Screen July 19, 2008 12:40am Negative - Strep culture confirmation to follow Hematocrit November 08, 2013 8:37pm 37.7 % N 36-46 Hemoglobin November 08, 2013 8:37pm 12.9 GM/DL N 12-16 Influenza Virus Types A,B Antigen July 19, 2008 12:55am Negative - LDL Cholesterol, Calculated November 13, 2008 5:55am 138.8 N 66-159 Lipase March 12, 2013 5:00am 184 U/L N 23-300 Lymphocytes # (Auto) November 08, 2013 8:37pm 2.9 T/MM3 N 1-4.8 Lymphocytes # (Manual) March 12, 2013 5:00am 4.6 T/MM3 N 1-4.8 Lymphocytes % (Manual) March 12, 2013 5:00am 52.0 % H 23-45 Lymphocytes (%) (Auto) November 08, 2013 8:37pm 42.8 % N 23-45 Magnesium Level November 07, 2013 9:58am 2.2 MG/DL N 1.6-2.3 Mean Corpuscular Hemoglobin November 08, 2013 8:37pm 31.4 UUG N 26-34 Mean Corpuscular Hemoglobin Concent November 08, 2013 8:37pm 34.2 GM/DL N 31 -37 Mean Corpuscular Volume November 08, 2013 8:37pm 91.7 UM3 N 80-100 Mean Platelet Volume November 08, 2013 8:37pm 9.0 UM3 L 9.4-12.4 Metamyelocytes # July 26, 2008 7:05am 0.1 T/MM3 - Metamyelocytes % July 26, 2008 7:05am 1.0 % H 0-0 Monocytes # (Auto) November 08, 2013 8:37pm 0.5 T/MM3 N 0-0.8 Monocytes # (Manual) March 12, 2013 5:00am 0.4 T/MM3 N 0-0.8 Monocytes % (Manual) March 12, 2013 5:00am 4.0 % N 0-9.0 Monocytes (%) (Auto) November 08, 2013 8:37pm 7.3 % N 0-9.0 Neutrophils # (Auto) November 08, 2013 8:37pm 3.2 T/MM3 N 1.8-7.7 Neutrophils # (Manual) March 12, 2013 5:00am 3.3 T/MM3 N 1.8-7.7 Neutrophils % (Manual) March 12, 2013 5:00am 37.0 % N 33-66 Neutrophils (%) (Auto) November 08, 2013 8:37pm 47.5 % N 33-66 Platelet Count November 08, 2013 8:37pm 270 T/MM3 N 130-400 Potassium Level November 08, 2013 8:37pm 4.1 MEQ/L N 3.6-5 Prothromb Time International Ratio December 24, 2012 4:10pm 0.96 N 0.86- 1.10 THERAPUTIC RANGE=2.00-3.00 FOR ANTI-THROMBOSIS THERAPUTIC RANGE=2.50- 3.50 FOR IMPLANTED VALVE RDW Standard Deviation November 08, 2013 8:37pm 44.7 FL N 36.9-50.2 Red Blood Count November 08, 2013 8:37pm 4.11 M/MM3 N 4.00-5.20 Rheumatoid Factor July 21, 2008 7:25pm < 6 IU/ML 0-11 Salicylates Level November 08, 2013 8:37pm < 1.0 MG/DL L 2-20 Sodium Level November 08, 2013 8:37pm 143 MEQ/L N 134-144 Tests Not Done July 16, 2009 7:29pm Not done - Has specimen been collected/obtained? Y Thyroid Stimulating Hormone (TSH) December 24, 2012 4:10pm 0.46 MIU/L L 0.47-4.68 Total Bilirubin November 08, 2013 8:37pm 0.10 MG/DL L 0.20-1.30 Total Creatine Kinase July 21, 2008 7:25pm 53 U/L N 30-135 Total Protein November 08, 2013 8:37pm 7.0 G/DL N 6.3-8.2 Triglycerides Level November 13, 2008 5:55am 176 MG/DL H 35-135 Troponin I November 07, 2013 9:58am < 0.012 ng/ml 0-0.12 Unconjugated Bilirubin August 21, 2012 11:00pm 0.00 MG/DL N 0.00-1.10 Urine Bacteria December 24, 2012 6:22pm 1+ H - Has specimen been collected/obtained? Y Urine Bilirubin November 08, 2013 8:50pm Negative - Has specimen been collected/obtained? Y Urine Blood November 08, 2013 8:50pm Negative - Has specimen been collected/obtained? Y Urine Collection Type November 08, 2013 8:50pm Voided-not cc-midstr - Has specimen been collected/obtained? Y Urine Color November 08, 2013 8:50pm Yellow - Has specimen been collected /obtained? Y Urine Culture Indicated December 24, 2012 6:22pm Cult reflexed &setup - Has specimen been collected/obtained? Y Urine Drug Screen Confirmation July 14, 2009 12:04am Sent out - Urine Glucose (UA) November 08, 2013 8:50pm Negative - Has specimen been collected/obtained? Y Urine Ketones November 08, 2013 8:50pm Negative - Has specimen been collected/obtained? Y Urine Leukocyte Esterase November 08, 2013 8:50pm Negative - Has specimen been collected/obtained? Y Urine Nitrite November 08, 2013 8:50pm Negative - Has specimen been collected/obtained? Y Urine Protein November 08, 2013 8:50pm Negative - Has specimen been collected/obtained? Y Urine RBC December 24, 2012 6:22pm None seen /HPF - Has specimen been collected/obtained? Y Urine Specific Justin November 08, 2013 8:50pm 1.020 - Has specimen been collected/obtained? Y Urine Squamous Epithelial Cells December 24, 2012 6:22pm >50 - Has specimen been collected/obtained? Y Urine Turbidity November 08, 2013 8:50pm Clear - Has specimen been collected/obtained? Y Urine Urobilinogen November 08, 2013 8:50pm 0.2 EU/DL - Has specimen been collected/obtained? Y Urine WBC December 24, 2012 6:22pm 10-20 /HPF H - Has specimen been collected/obtained? Y Urine pH November 08, 2013 8:50pm 5.5 - Has specimen been collected/ obtained? Y VLDL Cholesterol November 13, 2008 5:55am 35.2 MG/DL H 0-28 Vitamin D 1,25-Dihydroxy November 12, 2008 8:30pm Send out - White Blood Count November 08, 2013 8:37pm 6.7 T/MM3 N 4.5-11.0 Chemistry Specimen Hemolysis November 08, 2013 8:37pm < 15 0-25 0-25: No Hemolysis.26-70: Slight [...] Phenytoin. Recommend specimen recollection. Urinalysis Comment November 08, 2013 8:50pm Microscopic not ind. - Has specimen been collected/obtained? Y Glucometer July 27, 2008 5:09pm 137 mg/dL - Lab Scanned Report November 08, 2013 9:33pm REFER[facility] LAB [id number] - EKG November 12, 2008 4:01pm Complete - HDL Cholesterol Direct November 13, 2008 5:55am 22 MG/DL L 40-60 Anti-Nuclear Antibody (LAB) July 21, 2008 7:25pm Sent out - Turbidity November 08, 2013 8:37pm < 20 0-20 Glomerular Filtration Rate Calc November 08, 2013 8:37pm 87 - Immature Granulocyte # (Auto) November 08, 2013 8:37pm 0.01 T/MM3 N 0.00- 0.03 Immature Granulocyte % (Auto) November 08, 2013 8:37pm 0.1 % N 0.0-0.5 Icterus Index November 08, 2013 8:37pm < 2 0-7 DX-Rul-V-Type Natriuretic Peptide November 07, 2013 9:58am 88 [...] 09/20/13 HYDRATE IV INFUSION ADD-ON completed 09/20/13 Encounters Encounter Location Date/Time Departed Emergency Room [facility] 11/08/13 8:14pm Departed Emergency Room [facility] 11/07/13 9:48am Departed Emergency Room [facility] 09/20/13 2:14am Recent Diagnosis
--- OUTSIDE RECORDS SUMMARY | 2016-08-26 17:35 | XMS REPORT | Continuity of Care Document ---
Author Author [facility] Organization [facility] Address Unknown Phone Unavailable Support Name Relationship Address Phone VINCENT CHERRY DO Caregiver [address] [place] [address] Unavailable VICKI POWERSEA Billie Next Of Kin [address] [place] [address] Insurance Providers Guarantor Reigne Dixon Address [address] [place] [address] Email DENIED 16 Payer [facility] Policy Number [id number] Subscriber's Name Regine Dixon Relationship 18 Self Effective Date 16 Expiration Date 16 Payer Medicare Policy Number [id number] Subscriber's Name Regine Dixon Relationship 18 Self Effective Date 96 Advance Directives Directive Response Recorded Date/Time Advanced Directives Type None 11/09/13 5:58pm Chief Complaint and Reason for Visit Chief Complaint Chest Pain Reason for Visit Gastritis Acute bronchitis Problems Active Problems Medical Problem Onset Date Status ANXIETY Unknown Acute ANXIETY Unknown Chronic ANXIETY Unknown Acute Anxiety and depression Unknown Chronic Atypical chest pain Unknown Acute CHEST WALL PAIN Unknown Acute CHEST WALL PAIN Unknown Acute COPD with acute exacerbation Unknown Acute Cervical strain, acute Unknown Acute Chronic generalized abdominal pain Unknown Acute Constipated Unknown Acute Contusion of head Unknown Acute Dependent edema Unknown Acute Depression Unknown Acute Diverticulitis Unknown Acute Dizziness Unknown Acute Dysuria Unknown Acute Epigastric abdominal pain Unknown Acute Esophageal spasm Unknown Acute Fall on same level from slipping, tripping or stumbling Unknown Acute GERD Unknown Chronic Gastritis Unknown Acute Gastritis Unknown Acute Generalized pain Unknown Acute Headache Unknown Acute Hiatal hernia Unknown LLQ abdominal pain Unknown Acute LOW BACK PAIN Unknown Acute Left shoulder strain Unknown Acute Low back pain Unknown Acute Neck strain Unknown Acute Obesity (BMI 30.0-34.9) Unknown Chronic Oral thrush Unknown Acute Pacemaker Unknown Chronic Pain, dental Unknown Acute Respiratory insufficiency Unknown Acute Restless leg syndrome Unknown Acute Right knee contusion Unknown Acute Sciatica Unknown Acute Seborrheic dermatitis of scalp Unknown Acute Shoulder contusion Unknown Acute Tobacco dependence Unknown Chronic Urethral caruncle Unknown Acute Vertigo Unknown Acute Surgical Problem Onset Date Status History of brain surgery Unknown Chronic Past Problems Medical Problem Onset Date ANXIETY Unknown Abdominal pain Unknown Acute bronchitis Unknown Acute costochondritis Unknown Bilateral flank pain Unknown Bilateral lower extremity edema Unknown Bronchitis Unknown Dental caries Unknown Esophageal hiatus hernia Unknown Fractured tooth Unknown GERD (gastroesophageal reflux disease) Unknown GERD (gastroesophageal reflux disease) Unknown Panic attack Unknown Right sided abdominal pain Unknown Spastic intestine Unknown Spastic intestine Unknown Medications Current Home Medications Medication Dose Units Route Directions Days Qty Instructions Start Date Azithromycin 250 Mg Tablet 1 Tab Oral Daily 6 Tablet TAKE TWO TABLETS ON DAY ONE, THEN ONE TABLET DAILY UNTIL ALL TAKEN. 06/30/16 Clonazepam 1 Mg Tab.rapdis 1 Tab Oral Four Times Daily 03/01/16 Fluticasone/Salmeterol (Advair 100-50 Diskus) 1 Disk W/Dev Inhaler 1 Puff Inhalation Twice A Day 02/08/16 Hydrocodone/Acetaminophen (Virgil 5-325 Tablet) 5-325 Tablet 1 Tab Oral Every 4 Hours as needed for Pain 3 Days 18 Tablet 06/30/16 Ondansetron (Zofran Odt) 4 Mg Tab.rapdis 4 Mg Oral Four Times Daily as needed for Nausea &/Or Vomiting 3 Days 12 Tablet 06/30/16 Pantoprazole Sodium 40 Mg Tablet.dr 40 Mg Oral Before Breakfast Take 1 tablet, by mouth, daily before breakfast. 03/01/16 Propranolol Hcl 20 Mg Tablet 20 Mg Oral Twice A Day for Anxiety Take 1 tablet, by mouth, 2 times a day. 06/30/16 Suvorexant (Belsomra) 10 Mg Tablet 03/26/16 Venlafaxine Hcl (Effexor Xr) 150 Mg Cap.er.24h 150 Mg Oral Give With Breakfast 01/21/16 Past Home Medications Medication Directions Ordered Status Aripiprazole (Abilify) 5 Mg Tablet, 5 Mg Oral Daily 10/31/09 Discontinued Aripiprazole (Abilify) 2 Mg Tablet, 1 Tab Oral Daily 08/10/09 Discontinued Aripiprazole (Abilify) 2 Mg Tablet, 1 Tab Oral Daily 08/08/08 Discontinued Chlorzoxazone (Parafon Forte Dsc) 500 Mg Tablet, 1 Tab Oral Q 8 H Prn Discontinued Ciprofloxacin Hcl (Cipro) 500 Mg Tablet, 1 Tab Oral Twice A Day 08/15/14 Discontinued Clonazepam 2 Mg Tablet, 1 Mg Oral Four Times Daily as needed for Prn Orders 09/04/15 Discontinued Clonazepam (Klonopin) 1 Mg Tablet, 1 Mg Oral Three Times A Day 12/14/09 Discontinued Eszopiclone (Lunesta) 3 Mg Tablet, 1 Tab Oral Bedtime 11/12/08 Discontinued Famotidine 20 Mg Tablet, 2 Tab Oral Bedtime 08/15/14 Discontinued Famotidine (Acid Funeral Counselor) 10 Mg Tablet, 10 Mg Oral Twice A Day 10/18/08 Discontinued Gabapentin (Neurontin) 400 Mg Capsule, 600 Mg Oral Three Times A Day Discontinued Hydrocodone Bit/Acetaminophen (Lortab 7.5-500 Tablet) 1 Tab Tablet, 1 Tab Oral As Needed 12/14/09 Discontinued Hydrocodone Bit/Acetaminophen (Lortab 7.5) 1 Udtab Tablet, 1 Udtab Oral As Needed 08/10/09 Discontinued Hydrocodone Bit/Acetaminophen (Lortab 5) 1 Tab Tablet, 1 - 2 Tab Oral Every 4- 6 Hours 11/12/08 Discontinued Lorazepam 1 Mg Tablet, 1 Mg Oral Three Times A Day 04/24/12 Discontinued Lorazepam (Ativan) 1 Mg Tablet, 1 Mg Oral Twice A Day 05/13/08 Discontinued Metronidazole (Flagyl) 500 Mg Tablet, 500 Mg Oral Q8h @ 0100/0900/1700 Discontinued Metronidazole 500 Mg Tablet, 1 Tab Oral Every 8 Hours 08/15/14 Discontinued Multivitamin (Daily Vitamin) 1 Each Tablet, 1 Each Oral Daily 08/22/12 Discontinued Neurontin , 600 Mg Oral Three Times A Day 08/10/09 Discontinued Nicotine (Nicotine Patch) 1 Patch .24 H Patch.td24, 1 Patch Transderm Daily 08/22/12 Discontinued Omeprazole (Prilosec) 20 Mg Capsule., 1 Cap Oral Twice A Day 08/08/08 Discontinued Omeprazole Magnesium (Prilosec Otc) 20 Mg Tablet., 20 Mg Oral Daily Discontinued Pregabalin (Lyrica) 50 Mg Capsule, 1 Tab Oral Three Times A Day 11/12/08 Discontinued Promethazine Hcl (Phenergan) 25 Mg Tablet, 25 Mg Oral As Needed 10/15/12 Discontinued Promethazine Hcl 25 Mg Tablet, 25 Mg Oral Every 4-6 Hours 08/11/12 Discontinued Ranitidine Hcl 150 Mg Capsule, 1 Tab Oral Daily 11/12/08 Discontinued Risperidone (Risperdal) 1 Mg Tablet, 1 Mg Oral Twice A Day 11/21/13 Discontinued Sertraline Hcl (Zoloft) 100 Mg Tablet, 200 Mg Oral Daily 12/14/09 Discontinued Sumatriptan Succinate (Imitrex) 50 Mg Tablet, 50 Mg Oral As Needed 09/24/12 Discontinued Sumatriptan Succinate (Imitrex) 50 Mg Tablet, 50 Mg G Tube As Needed Discontinued Tizanidine Hcl (Zanaflex) 4 Mg Tablet, 4 Mg Oral Twice A Day 08/22/12 Discontinued Tramadol Hcl 50 Mg Tablet, 50 Mg Oral As Needed 09/24/12 Discontinued Zanaflex , Bedtime 08/11/12 Discontinued Social History Social History Problem Response Recorded Date/Time Onset Date Status Chewing Tobacco Status No 11/09/2013 6:00pm Not Applicable Not Applicable Hx Substance Use No 06/30/2016 6:43am Not Applicable Not Applicable Hx Alcohol Use No 06/30/2016 6:43am Not Applicable Not Applicable Has the pt used tobacco in the last 12 months Yes 03/02/2016 6:35am Not Applicable Not Applicable Tobacco Usage smoke 08/15/2014 4:37pm Not Applicable Not Applicable Query Response Start Date Stop Date Smoking Status Current every day smoker Hospital Discharge Instructions No hospital discharge instructions. Plan of Care Discharge Date 06/30/16 9:37am Disposition 01 DISCHARGED HOME, SELF-CARE Condition at Discharge Improved Instructions/Education Provided Gastritis (ED) Acute Bronchitis (ED) Prescriptions See Medication Section Referrals DEXTER OREILLY APRN Order Date: 2 Days Address: [address] [place] [phone] Note: Care Plan and Goals Physician Care Plan Problem: Acute bronchitis, Gastritis Goal: Follow up with primary care provider Instructions: Take medications and follow care plan as discussed/written Functional Status No functional status results. Allergies, Adverse Reactions, Alerts Allergen Type Severity Reaction Status Last Updated Sulfamethoxazole Allergy Unknown Active 06/30/16 Trimethoprim Allergy Unknown Active 06/30/16 Fluoxetine Allergy Unknown Active 06/30/16 Immunizations Query Response on File Recorded Date/Time Hx Influenza Vaccination Y fall 201403/02/16 6:35am Hx Pneumococcal Vaccination No 03/02/16 6:35am Hx Tetanus, Diptheria, Pertussis NO OPEN AREAS 10/03/14 2:20pm Hx Influenza Vaccination Y fall 201403/02/16 6:35am Hx Tetanus Diptheria No 10/03/14 2:20pm Hx Tetanus, Diptheria, Pertussis NO OPEN AREAS 10/03/14 2:20pm Hx Tetanus Toxoid Vaccination No 11/23/13 7:45pm Influenza Vaccine Hx 2016 06/30/16 6:43am Tetanus Diptheria Vaccine History UNKNOWN 06/30/16 6:43am Vital Signs Acute Vital Signs Vital Response Date/Time Temperature (Fahrenheit) 98.2 deg F (96.8 - 99.1) 06/30/2016 9:37am Temperature (Calculated Celsius) 36.00003 degrees C (36.0 - 37.3) 06/30/2016 9:37am Pulse Rate (adult) 64 bpm (60 - 100) 06/30/2016 9:37am Respiratory Rate 15 breaths/min (10 - 20) 06/30/2016 9:37am O2 Sat by Pulse Oximetry 98 % (90 - 100) 06/30/2016 9:37am Oxygen Flow Rate 2.00 L/min 06/24/2016 2:46am Blood Pressure 104/62 mm Hg 06/30/2016 9:37am Height (Feet) 5 feet 06/30/2016 6:12am Height (Inches) 7.00 inches 06/30/2016 6:12am Weight (Kilograms) 85.700 kg 06/30/2016 6:12am Body Mass Index (BMI) 29.0 06/30/2016 6:12am Results Laboratory Results Test Name Result Units Flags Reference Collection Date/Time Result Date/ Time Comments White Blood Count 9.2 T/MM3 4.5-11.0 06/30/2016 6:26am 06/30/2016 6: 43am Red Blood Count 4.59 M/MM3 4.00-5.20 06/30/2016 6:26am 06/30/2016 6: 43am Hemoglobin 14.3 GM/DL 12-16 06/30/2016 6:26am 06/30/2016 6:43am Hematocrit 42.0 % 36-46 06/30/2016 6:26am 06/30/2016 6:43am Mean Corpuscular Volume 91.5 UM3 80-100 06/30/2016 6:06/30/2016 6: 43am Mean Corpuscular Hemoglobin 31.2 UUG 26-34 06/30/2016 6:2016 6:43am Mean Corpuscular Hemoglobin Concent 34.0 GM/DL 31-37 06/30/2016 6:06/30/2016 6:43am RDW Standard Deviation 43.8 FL 36.9-50.2 06/30/2016 6:06/30/2016 6 :43am Platelet Count 252 T/MM3 130-400 06/30/2016 6:06/30/2016 6:43am Mean Platelet Volume 9.8 UM3 9.4-12.4 06/30/2016 6:06/30/2016 6: 43am Neutrophils (%) (Auto) 47.3 % 33-66 06/30/2016 6:06/30/2016 6: 43am Lymphocytes (%) (Auto) 41.5 % 23-45 06/30/2016 6:06/30/2016 6: 43am Monocytes (%) (Auto) 7.3 % 0-9.0 06/30/2016 6:06/30/2016 6:43am Eosinophils (%) (Auto) 3.5 % 0-4 06/30/2016 6:06/30/2016 6:43am Basophils (%) (Auto) 0.3 % 0-2 06/30/2016 6:06/30/2016 6:43am Immature Granulocyte % (Auto) 0.1 % 0.0-0.5 06/30/2016 6:2016 6:43am Absolute Neutrophils (auto) 4.4 T/MM3 1.8-7.7 06/30/2016 6:2016 6:43am Absolute Lymphocytes (auto) 3.8 T/MM3 1-4.8 06/30/2016 6:2016 6:43am Absolute Monocytes (auto) 0.7 T/MM3 0-0.8 06/30/2016 6:06/30/2016 6:43am Absolute Eosinophils (auto) 0.3 T/MM3 0-0.5 06/30/2016 6:2016 6:43am Absolute Basophils (auto) 0.0 T/MM3 0-0.2 06/30/2016 6:06/30/2016 6:43am Absolute Immature Granulocyte (auto 0.01 T/MM3 0.00-0.03 06/30/2016 6: 06/30/2016 6:43am Icterus Index < 2 0-7 06/30/2016 6:06/30/2016 6:49am Chemistry Specimen Hemolysis < 15 0-25 06/30/2016 6:06/30/2016 6 :49am 0-25: Specimen Exhibited No Hemolysis. Turbidity < 20 0-20 06/30/2016 6:06/30/2016 6:49am Sodium Level 142 MEQ/L 134-144 06/30/2016 6:06/30/2016 6:49am Potassium Level 3.6 MEQ/L 3.6-5 06/30/2016 6:06/30/2016 6:49am Chloride Level 105 MEQ/L 98-107 06/30/2016 6:06/30/2016 6:49am Carbon Dioxide Level 25 MEQ/L 22-30 06/30/2016 6:06/30/2016 6: 49am Anion Gap 12 MEQ/L 5-06/30/2016 6:06/30/2016 6:49am Blood Urea Nitrogen 13.0 MG/DL 7-06/30/2016 6:06/30/2016 6: 49am Creatinine 1.0 MG/DL 0.7-1.2 06/30/2016 6:06/30/2016 6:49am BUN/Creatinine Ratio 13 RATIO 606/30/2016 6:06/30/2016 6:49am Glomerular Filtration Rate Calc 57 06/30/2016 6:06/30/2016 6: 49am Glucose Level 89 MG/DL 65-110 06/30/2016 6:06/30/2016 6:49am Calculated Osmolality 272 MOSM/KG 261-280 06/30/2016 6:06/30/2016 6:49am Calcium Level 9.6 MG/DL 8.4-10.2 06/30/2016 6:06/30/2016 6:49am Total Bilirubin 0.40 MG/DL 0.20-1.30 06/30/2016 6:06/30/2016 6: 49am Alkaline Phosphatase 89 U/L 38-126 06/30/2016 6:06/30/2016 6:49am Total Protein 7.6 G/DL 6.3-8.2 06/30/2016 6:06/30/2016 6:49am Albumin 4.2 G/DL 3.5-5.0 06/30/2016 6:06/30/2016 6:49am Globulin 3.4 G/DL 2.4-3.6 06/30/2016 6:06/30/2016 6:49am Albumin/Globulin Ratio 1.2 RATIO 1.1-2.2 06/30/2016 6:06/30/2016 6 :49am Aspartate Amino Transf (AST/SGOT) 26 U/L 14-36 06/30/2016 6:2016 6:49am Alanine Aminotransferase (ALT/SGPT) 40 U/L 9-52 06/30/2016 6:06/30 6:49am Troponin I < 0.012 ng/ml 0-0.12 06/30/2016 6:06/30/2016 7:00am Troponin values with a difference of 55% increase from orginal troponin value represent a true biological DELTA value. (%increase Calc=Orginal Troponin value, divided by subsequent Troponin value, multiplied by 100) Lipase 140 U/L 23-300 06/30/2016 6:06/30/2016 6:49am Urine Collection Type CLEANCATCH-MIDSTREAM 06/30/2016 6:2016 6:51am Urine Color YELLOW YELLOW 06/30/2016 6:06/30/2016 6:51am Urine Turbidity CLEAR CLEAR 06/30/2016 6:06/30/2016 6:51am Urine Specific [place] 1.020 1.015-1.025 06/30/2016 6:462016 6:51am Urine pH 5.5 5.0-8.0 06/30/2016 6:4606/30/2016 6:51am Urine Leukocyte Esterase NEGATIVE NEGATIVE 06/30/2016 6:46am 2016 6:51am Urine Nitrite NEGATIVE NEGATIVE 06/30/2016 6:46am 06/30/2016 6:51am Urine Protein NEGATIVE NEGATIVE 06/30/2016 6:46am 06/30/2016 6:51am Urine Glucose (UA) NEGATIVE NEGATIVE 06/30/2016 6:46am 06/30/2016 6: 51am Urine Ketones NEGATIVE NEGATIVE 06/30/2016 6:46am 06/30/2016 6:51am Urine Urobilinogen 0.2 EU/DL NORMAL 06/30/2016 6:46am 06/30/2016 6: 51am Urine Bilirubin NEGATIVE NEGATIVE 06/30/2016 6:46am 06/30/2016 6: 51am Urine Blood NEGATIVE NEGATIVE 06/30/2016 6:46am 06/30/2016 6:51am Urinalysis Comment MICROSCOPIC NOT IND. 06/30/2016 6:46am 2016 6:51am Procedures Procedure Status Date Provider(s) Ther/proph/diag inj sc/im Completed 04/30/16 Ther/proph/diag inj sc/im Completed 04/30/16 Emergency dept visit Completed 04/30/16 [id number] ITEM OR SERVICE Completed 04/30/16 [id number] ITEM OR SERVICE Completed 04/30/16 [id number]"INJECTION, PROCHLORPERAZINE, UP TO 10 MG" Completed 04/30/16 [id number]"INJECTION, HYDROMORPHONE, UP TO 4 MG" Completed 04/30/16 Compound Drug, Not Otherwise Classified Completed 04/30/16 X-ray exam of abdomen Completed 05/28/16 Emergency dept visit Completed 05/28/16 Compound Drug, Not Otherwise Classified Completed 05/28/16 X-ray exam of abdomen Completed 06/24/16 Comprehen metabolic panel Completed 06/24/16 Complete cbc w/auto diff wbc Completed 06/24/16 Hydrate iv infusion add-on Completed 06/24/16 Ther/proph/diag inj iv push Completed 06/24/16 Tx/pro/dx inj new drug addon Completed 06/24/16 Tx/pro/dx inj new drug addon Completed 06/24/16 Emergency dept visit Completed 06/24/16 [id number] ITEM OR SERVICE Completed 06/24/16175339"INJECTION, PROCHLORPERAZINE, UP TO 10 MG" Completed 06/24/16"INJECTION, HYDROMORPHONE, UP TO 4 MG" Completed 06/24/16"INJECTION, KETOROLAC TROMETHAMINE, PER 15 MG" Completed 06/24/16"INFUSION, NORMAL SALINE SOLUTION , 1000 CC" Completed 06/24/16 Encounters Encounter Location Arrival/Admit Date Discharge/Depart Date Attending Provider Departed Emergency Room [facility] 06/30/16 6:11am 06/30/16 9: 37am VINCENT CHERRY DO Departed Emergency Room [facility] 06/24/16 12:04am 06/24/16 2: 46am JORDY MALIK MD Departed Emergency Room [facility] 05/28/16 11:44pm 05/29/16 3: 44am CRISTY CROWELL DO Departed Emergency Room [facility] 04/30/16 11:29pm 05/01/16 1: 15am JORDY MALIK MD Recent Diagnosis
--- OUTSIDE RECORDS SUMMARY | 2016-08-26 17:35 | XMS REPORT | Continuity of Care Document ---
Author Author [facility] Organization [facility] Address Unknown Phone Unavailable Support Name Relationship Address Phone BARTOLO FRIEDMAN MD Caregiver [address] [place] [address] RHONDA TRUJILLO MD Caregiver [address] [place] [address] [place] [phone] RIYA POWERS Next Of Kin [address] [place] [address] Insurance Providers Payer Name Policy Number Subscriber Name Relationship Medicare [id number] Regine Dixon 20 Self Advance Directives Directive [...] edema Unknown Active Dependent edema Unknown Active Medications Medication Dose Route Sig [...] Substance Use N PAST USE OF MARIJUANA 11/23/2013 7:45pm Hx Alcohol Use No 11/23/2013 7:45pm Has the pt used tobacco in the last 12 months Yes 02/05/2012 11:23am Query Response Start Date Stop Date Smoking Status Current every day smoker Hospital Discharge Instructions No hospital discharge instructions. Plan of Care No plan of care. Functional Status Query Response Date Recorded Physical Hygiene Self November 23, 2013 7:45pm Disabilities None November 23, 2013 7:45pm Devices Used None November 23, 2013 7:45pm Dressing Self November 23, 2013 7:45pm Ambulation Self November 09, 2013 6:00pm Diet Self November 23, 2013 7:45pm Mental Status Forgetful November 09, 2013 6:00pm Disabilities None November 23, 2013 7:45pm Devices Used None November 23, 2013 7:45pm Physical Hygiene Self November 23, 2013 7:45pm Dressing Self November 23, 2013 7:45pm Ambulation Self November 09, 2013 6:00pm Diet Self November 23, 2013 7:45pm Allergies, Adverse Reactions, Alerts Allergen Type Severity [...] (Fahrenheit) 98.2 deg F (96.8 - 99.1) Temperature (Calculated Celsius) 36.91486 degrees C (36.0 - 37.3) Pulse Rate (adult) 88 bpm (60 - 100) Respiratory Rate 18 breaths/min (10 - 20) O2 Sat by Pulse Oximetry 95 % (90 - 100) Blood Pressure 100/74 mm Hg Height 5 ft 8 in Weight 175 lb Body Mass Index 26.0 kg/m^2 Results Test Source Date Result Interp. Ref. Range Comments Acetaminophen Level November 08, 2013 8:37pm < 10 UG/ML L 10-30 TOXIC <4 HR POST INGESTION: >150 MG/L;TOXIC <12 HR POST INGESTION: >50 MG/L Activated Partial Thromboplast Time December 24, 2012 4:10pm 28.6 SEC N 24 -36 Ordering r/o VTE Yes Alanine Aminotransferase (ALT/SGPT) November 23, 2013 8:15pm 31 U/L N 9-52 Albumin November 23, 2013 8:15pm 3.6 G/DL N 3.5-5.0 Albumin/Globulin Ratio November 23, 2013 8:15pm 1.2 RATIO N 1.1-2.2 Alcohol, Quantitative November 08, 2013 8:37pm <10 MG/DL - Alkaline Phosphatase November 23, 2013 8:15pm 86 U/L N 38-126 Amylase Level August 11, 2012 11:40pm 104 U/L N 30-110 Anion Gap November 23, 2013 8:15pm 10 MEQ/L N 5-15 Aspartate Amino Transf (AST/SGOT) November 23, 2013 8:15pm 23 U/L N 14-36 BUN/Creatinine Ratio November 23, 2013 8:15pm 10 RATIO N 6-26 Band Neutrophils # March 12, 2013 5:00am 0.1 T/MM3 - Band Neutrophils % March 12, 2013 5:00am 1.0 % N 0-6 Basophils # (Auto) November 23, 2013 8:15pm 0.0 T/MM3 N 0-0.2 Basophils # (Manual) July 26, 2008 7:05am 0.0 T/MM3 N 0-0.2 Basophils % (Manual) July 26, 2008 7:05am 0.0 % N 0-2 Basophils (%) (Auto) November 23, 2013 8:15pm 0.4 % N 0-2 Blood Urea Nitrogen November 23, 2013 8:15pm 9.0 MG/DL DN 7-17 Calcium Level November 23, 2013 8:15pm 8.7 MG/DL N 8.4-10.2 Calculated Osmolality November 23, 2013 8:15pm 268 MOSM/KG N 261-280 Carbon Dioxide Level November 23, 2013 8:15pm 26 MEQ/L N 22-30 Chloride Level November 23, 2013 8:15pm 104 MEQ/L N 98-107 Cholesterol Level November 13, 2008 5:55am 196 MG/DL N 132-199 Cholesterol/HDL Ratio November 13, 2008 5:55am 8.0 RATIO H 0-4.0 Conjugated Bilirubin August 21, 2012 11:00pm 0.00 MG/DL N 0.00-0.30 Creatinine November 23, 2013 8:15pm 0.9 MG/DL DN 0.7-1.2 D-Dimer November 23, 2013 8:15pm 291 NG/ML H 0-230 <224 NG/ML=PRESUMPTIVE NEGATIVE FOR PE OR DVT>224 NG/ML=ADDITIONAL EVALUATION FOR PE OR DVT RECOMMENDED Eosinophils # (Auto) November 23, 2013 8:15pm 0.2 T/MM3 N 0-0.5 Eosinophils # (Manual) March 12, 2013 5:00am 0.5 T/MM3 N 0-0.5 Eosinophils % (Manual) March 12, 2013 5:00am 6.0 % H 0-4 Eosinophils (%) (Auto) November 23, 2013 8:15pm 2.8 % N 0-4 Erythrocyte Sedimentation Rate July 13, 2009 11:35pm 23 MM/HR H 0-20 Free Thyroxine July 21, 2008 7:25pm 0.82 NG/DL N 0.78-2.19 Free Triiodothyronine July 21, 2008 7:25pm 3.56 PG/ML N 2.77-5.27 Globulin November 23, 2013 8:15pm 3.1 G/DL N 2.4-3.6 Glucose Level November 23, 2013 8:15pm 90 MG/DL N 65-110 Group A Streptococcus Screen July 19, 2008 12:40am Negative - Strep culture confirmation to follow Hematocrit November 23, 2013 8:15pm 35.4 % L 36-46 Hemoglobin November 23, 2013 8:15pm 11.9 GM/DL L 12-16 Influenza Virus Types A,B Antigen July 19, 2008 12:55am Negative - LDL Cholesterol, Calculated November 13, 2008 5:55am 138.8 N 66-159 Lipase March 12, 2013 5:00am 184 U/L N 23-300 Lymphocytes # (Auto) November 23, 2013 8:15pm 3.1 T/MM3 N 1-4.8 Lymphocytes # (Manual) March 12, 2013 5:00am 4.6 T/MM3 N 1-4.8 Lymphocytes % (Manual) March 12, 2013 5:00am 52.0 % H 23-45 Lymphocytes (%) (Auto) November 23, 2013 8:15pm 41.8 % N 23-45 Magnesium Level November 07, 2013 9:58am 2.2 MG/DL N 1.6-2.3 Mean Corpuscular Hemoglobin November 23, 2013 8:15pm 31.7 UUG N 26-34 Mean Corpuscular Hemoglobin Concent November 23, 2013 8:15pm 33.6 GM/DL N 31 -37 Mean Corpuscular Volume November 23, 2013 8:15pm 94.4 UM3 N 80-100 Mean Platelet Volume November 23, 2013 8:15pm 9.3 UM3 L 9.4-12.4 Metamyelocytes # July 26, 2008 7:05am 0.1 T/MM3 - Metamyelocytes % July 26, 2008 7:05am 1.0 % H 0-0 Monocytes # (Auto) November 23, 2013 8:15pm 0.4 T/MM3 N 0-0.8 Monocytes # (Manual) March 12, 2013 5:00am 0.4 T/MM3 N 0-0.8 Monocytes % (Manual) March 12, 2013 5:00am 4.0 % N 0-9.0 Monocytes (%) (Auto) November 23, 2013 8:15pm 5.9 % N 0-9.0 Neutrophils # (Auto) November 23, 2013 8:15pm 3.6 T/MM3 N 1.8-7.7 Neutrophils # (Manual) March 12, 2013 5:00am 3.3 T/MM3 N 1.8-7.7 Neutrophils % (Manual) March 12, 2013 5:00am 37.0 % N 33-66 Neutrophils (%) (Auto) November 23, 2013 8:15pm 49.0 % N 33-66 Platelet Count November 23, 2013 8:15pm 260 T/MM3 N 130-400 Potassium Level November 23, 2013 8:15pm 3.9 MEQ/L N 3.6-5 Prothromb Time International Ratio December 24, 2012 4:10pm 0.96 N 0.86- 1.10 THERAPUTIC RANGE=2.00-3.00 FOR ANTI-THROMBOSIS THERAPUTIC RANGE=2.50- 3.50 FOR IMPLANTED VALVE RDW Standard Deviation November 23, 2013 8:15pm 46.8 FL N 36.9-50.2 Red Blood Count November 23, 2013 8:15pm 3.75 M/MM3 L 4.00-5.20 Rheumatoid Factor July 21, 2008 7:25pm < 6 IU/ML 0-11 Salicylates Level November 08, 2013 8:37pm < 1.0 MG/DL L 2-20 Sodium Level November 23, 2013 8:15pm 140 MEQ/L N 134-144 Tests Not Done July 16, 2009 7:29pm Not done - Has specimen been collected/obtained? Y Thyroid Stimulating Hormone (TSH) December 24, 2012 4:10pm 0.46 MIU/L L 0.47-4.68 Total Bilirubin November 23, 2013 8:15pm 0.10 MG/DL L 0.20-1.30 Total Creatine Kinase July 21, 2008 7:25pm 53 U/L N 30-135 Total Protein November 23, 2013 8:15pm 6.7 G/DL N 6.3-8.2 Triglycerides Level November [...] Has specimen been collected/obtained? Y Urine Specific [place] November 21, 2013 9:42pm <=1.005 L - [...] Send out - White Blood Count November 23, 2013 8:15pm 7.4 T/MM3 N 4.5-11.0 Chemistry Specimen Hemolysis November 23, 2013 8:15pm < 15 0-25 0-25: No Hemolysis.26-70: Slight [...] Report November 08, 2013 9:33pm REFERENCE LAB [id number] - EKG November 12, 2008 4:01pm Complete - HDL Cholesterol Direct November 13, 2008 5:55am 22 MG/DL L 40-60 Anti-Nuclear Antibody (LAB) July 21, 2008 7:25pm Sent out - Turbidity November 23, 2013 8:15pm < 20 0-20 Glomerular Filtration Rate Calc November 23, 2013 8:15pm 65 - Immature Granulocyte # (Auto) November 23, 2013 8:15pm 0.01 T/MM3 N 0.00- 0.03 Immature Granulocyte % (Auto) November 23, 2013 8:15pm 0.1 % N 0.0-0.5 Icterus Index November 23, 2013 8:15pm < 2 0-7 BM-Dbv-Q-Type Natriuretic Peptide November 07, 2013 9:58am 88 [...] Encounters Encounter Location Date/Time Departed Emergency Room [facility] 11/23/13 6:49pm Departed Emergency Room [facility] 11/21/13 8:12pm Departed Emergency Room [facility] 11/09/13 5:52pm Departed Emergency Room [facility] 11/08/13 8:14pm Departed Emergency Room [facility] 11/07/13 9:48am Departed Emergency Room [facility] 09/20/13 2:14am Recent Diagnosis
--- OUTSIDE RECORDS SUMMARY | 2016-08-26 17:35 | XMS REPORT | Continuity of Care Document ---
Author Author [facility] Organization [facility] Address Unknown Phone Unavailable Support Name Relationship Address Phone JORDY MALIK MD Caregiver [facility] [address] [place] [address] Unavailable RIYA POWERS Next Of Kin [address] [place] [address] Insurance Providers Payer Name Policy Number Subscriber Name Relationship Medicare [id number] Regine Dixon 20 Self Advance Directives Directive [...] PO THREE TIMES A DAY 11/09/13 Active Social History Social History Problem Response Recorded Date/Time Smoking Status Current every day smoker 11/09/2013 6:00pm Chewing Tobacco Status No 11/09/2013 6:00pm Hx Substance Use N PAST USE OF MARIJUANA 11/09/2013 6:00pm Hx Alcohol Use No 11/09/2013 6:00pm Has the pt used tobacco in the last 12 months Yes 02/05/2012 11:23am Query Response Start Date Stop Date Smoking Status Current every day smoker Hospital Discharge Instructions No hospital discharge instructions. Plan of Care No plan of care. Functional Status Query Response Date Recorded Physical Hygiene Self November 09, 2013 6:00pm Dressing Self November 09, 2013 6:00pm Ambulation Self November 09, 2013 6:00pm Diet Self November 09, 2013 6:00pm Mental Status Forgetful November 09, 2013 6:00pm Physical Hygiene Self November 09, 2013 6:00pm Dressing Self November 09, 2013 6:00pm Ambulation Self November 09, 2013 6:00pm Diet Self November 09, 2013 6:00pm Allergies, Adverse Reactions, Alerts Allergen Type Severity Reaction Status Last Updated Sulfamethoxazole Allergy Unknown Active 11/09/13 Trimethoprim Allergy Unknown Active 11/09/13 Fluoxetine Allergy Unknown Active 11/09/13 Immunizations Name Given Type Hx Influenza Vaccination [...] F (96.8 - 99.1) Temperature (Calculated Celsius) 36.34755 degrees C (36.0 - 37.3) Pulse Rate (adult) 78 bpm (60 - 100) Respiratory Rate 20 breaths/min (10 - 20) O2 Sat by Pulse Oximetry 96 % (90 - 100) Blood Pressure 123/86 mm Hg Height 5 ft 6 in Weight 171 lb Body Mass Index 27.0 kg/m^2 Results [...] 176 MG/DL H 35-135 Troponin I November 09, 2013 4:20pm < 0.012 ng/ml 0-0.12 Unconjugated Bilirubin August [...] Has specimen been collected/obtained? Y Urine Specific [place] November 08, 2013 8:50pm 1.020 - Has [...] T/MM3 N 4.5-11.0 Chemistry Specimen Hemolysis November 09, 2013 4:20pm < 15 0-25 0-25: No Hemolysis.26-70: Slight [...] Report November 08, 2013 9:33pm REFERENCE LAB [id number] - EKG November 12, 2008 4:01pm Complete [...] November 08, 2013 8:37pm < 2 0-7 SF-Fao-D-Type Natriuretic Peptide November 07, 2013 9:58am 88 [...] Encounters Encounter Location Date/Time Departed Emergency Room [facility] 11/09/13 5:52pm Departed Emergency Room [facility] 11/08/13 8:14pm Departed Emergency Room [facility] 11/07/13 9:48am Departed Emergency Room [facility] 09/20/13 2:14am Recent Diagnosis
--- OUTSIDE RECORDS SUMMARY | 2016-08-26 17:36 | XMS REPORT | Continuity of Care Document ---
Author Author [facility] Organization [facility] Address Unknown Phone Unavailable Support Name Relationship Address Phone BARTOLO FRIEDMAN MD Caregiver [address] [place] [address] ROSSY LANZA MD Caregiver [address] [place] [address] [place] [phone] RIYA POWERS Next Of Kin [address] [place], [place] [id number] Insurance Providers Payer Name Policy Number Subscriber Name Relationship Medicare [id number] Regine Dixon 20 Self Advance Directives Directive [...] Active Dizziness Unknown Active Dizziness Unknown Active Medications Medication Dose Route Sig [...] PO NEEDED 12/14/09 01/01/12 Discontinued Venlafaxine Hcl 225 Mg PO DAILY 01/01/12 Active Lorazepam 1 [...] Date/Time Smoking Status Current every day smoker 11/07/2013 9:48am Chewing Tobacco Status No 11/07/2013 9:48am Hx Substance Use N PAST USE OF MARIJUANA 11/07/2013 9:48am Hx Alcohol Use No 11/07/2013 9:48am Has the pt used tobacco in the last 12 months Yes 02/05/2012 11:23am Query Response Start Date Stop Date Smoking Status Current every day smoker Hospital Discharge Instructions No hospital discharge instructions. Plan of Care No plan of care. Functional Status Query Response Date Recorded Mental Status Alert November 07, 2013 11:46am Allergies, Adverse Reactions, Alerts Allergen Type Severity Reaction Status Last Updated Sulfamethoxazole Allergy Unknown Active 11/07/13 Trimethoprim Allergy Unknown Active 11/07/13 Fluoxetine Allergy Unknown Active 11/07/13 Immunizations Name Given Type Hx Influenza Vaccination Y 2013 Historical Hx Pneumococcal Vaccination No Historical Hx Tetanus, Diptheria, Pertussis NO OPEN AREAS Historical Hx Influenza Vaccination Y 2013 Historical Hx Tetanus Diptheria No Historical Hx Tetanus, Diptheria, Pertussis NO OPEN AREAS Historical Hx Tetanus Toxoid Vaccination No Historical Vital Signs Acute Vital Signs Vital Response Date/Time Temperature (Fahrenheit) 97.5 deg F (96.8 - 99.1) Temperature (Calculated Celsius) 36.55576 degrees C (36.0 - 37.3) Pulse Rate (adult) 76 bpm (60 - 100) Respiratory Rate 14 breaths/min (10 - 20) O2 Sat by Pulse Oximetry 98 % (90 - 100) Blood Pressure 114/70 mm Hg Height 5 ft 6 in Weight 169 lb Body Mass Index 27.0 kg/m^2 Results Test Source Date Result Interp. Ref. Range Comments Acetaminophen Level August 16, 2012 12:37am < 10 UG/ML L 10-30 TOXIC <4 HR POST INGESTION: >150 MG/L;TOXIC <12 HR POST INGESTION: >50 MG/L Activated Partial Thromboplast Time December 24, 2012 4:10pm 28.6 SEC N 24 -36 Ordering r/o VTE Yes Alanine Aminotransferase (ALT/SGPT) November 07, 2013 9:58am 23 U/L N 9-52 Albumin November 07, 2013 9:58am 3.9 G/DL N 3.5-5.0 Albumin/Globulin Ratio November 07, 2013 9:58am 1.2 RATIO N 1.1-2.2 Alcohol, Quantitative August 16, 2012 12:37am <10 MG/DL - Alkaline Phosphatase November 07, 2013 9:58am 84 U/L N 38-126 Amylase Level August 11, 2012 11:40pm 104 U/L N 30-110 Anion Gap November 07, 2013 9:58am 11 MEQ/L N 5-15 Aspartate Amino Transf (AST/SGOT) November 07, 2013 9:58am 28 U/L N 14-36 BUN/Creatinine Ratio November 07, 2013 9:58am 14 RATIO N 6-26 Band Neutrophils # March 12, 2013 5:00am 0.1 T/MM3 - Band Neutrophils % March 12, 2013 5:00am 1.0 % N 0-6 Basophils # (Auto) November 07, 2013 9:58am 0.0 T/MM3 N 0-0.2 Basophils # (Manual) July 26, 2008 7:05am 0.0 T/MM3 N 0-0.2 Basophils % (Manual) July 26, 2008 7:05am 0.0 % N 0-2 Basophils (%) (Auto) November 07, 2013 9:58am 0.5 % N 0-2 Blood Urea Nitrogen November 07, 2013 9:58am 10.0 MG/DL N 7-17 Calcium Level November 07, 2013 9:58am 9.0 MG/DL N 8.4-10.2 Calculated Osmolality November 07, 2013 9:58am 273 MOSM/KG N 261-280 Carbon Dioxide Level November 07, 2013 9:58am 26 MEQ/L N 22-30 Chloride Level November 07, 2013 9:58am 106 MEQ/L N 98-107 Cholesterol Level November 13, 2008 5:55am 196 MG/DL N 132-199 Cholesterol/HDL Ratio November 13, 2008 5:55am 8.0 RATIO H 0-4.0 Conjugated Bilirubin August 21, 2012 11:00pm 0.00 MG/DL N 0.00-0.30 Creatinine November 07, 2013 9:58am 0.7 MG/DL N 0.7-1.2 D-Dimer December 24, 2012 4:10pm 307 NG/ML H 0-230 <224 NG/ML= PRESUMPTIVE NEGATIVE FOR PE OR DVT>224 NG/ML=ADDITIONAL EVALUATION FOR PE OR DVT RECOMMENDED Eosinophils # (Auto) November 07, 2013 9:58am 0.2 T/MM3 N 0-0.5 Eosinophils # (Manual) March 12, 2013 5:00am 0.5 T/MM3 N 0-0.5 Eosinophils % (Manual) March 12, 2013 5:00am 6.0 % H 0-4 Eosinophils (%) (Auto) November 07, 2013 9:58am 2.9 % N 0-4 Erythrocyte Sedimentation Rate July 13, 2009 11:35pm 23 MM/HR H 0-20 Free Thyroxine July 21, 2008 7:25pm 0.82 NG/DL N 0.78-2.19 Free Triiodothyronine July 21, 2008 7:25pm 3.56 PG/ML N 2.77-5.27 Globulin November 07, 2013 9:58am 3.2 G/DL N 2.4-3.6 Glucose Level November 07, 2013 9:58am 88 MG/DL N 65-110 Group A Streptococcus Screen July 19, 2008 12:40am Negative - Strep culture confirmation to follow Hematocrit November 07, 2013 9:58am 40.6 % N 36-46 Hemoglobin November 07, 2013 9:58am 13.6 GM/DL N 12-16 Influenza Virus Types A,B Antigen July 19, 2008 12:55am Negative - LDL Cholesterol, Calculated November 13, 2008 5:55am 138.8 N 66-159 Lipase March 12, 2013 5:00am 184 U/L N 23-300 Lymphocytes # (Auto) November 07, 2013 9:58am 2.5 T/MM3 N 1-4.8 Lymphocytes # (Manual) March 12, 2013 5:00am 4.6 T/MM3 N 1-4.8 Lymphocytes % (Manual) March 12, 2013 5:00am 52.0 % H 23-45 Lymphocytes (%) (Auto) November 07, 2013 9:58am 40.4 % N 23-45 Magnesium Level November 07, 2013 9:58am 2.2 MG/DL N 1.6-2.3 Mean Corpuscular Hemoglobin November 07, 2013 9:58am 31.1 UUG N 26-34 Mean Corpuscular Hemoglobin Concent November 07, 2013 9:58am 33.5 GM/DL N 31 -37 Mean Corpuscular Volume November 07, 2013 9:58am 92.7 UM3 N 80-100 Mean Platelet Volume November 07, 2013 9:58am 9.7 UM3 N 9.4-12.4 Metamyelocytes # July 26, 2008 7:05am 0.1 T/MM3 - Metamyelocytes % July 26, 2008 7:05am 1.0 % H 0-0 Monocytes # (Auto) November 07, 2013 9:58am 0.4 T/MM3 N 0-0.8 Monocytes # (Manual) March 12, 2013 5:00am 0.4 T/MM3 N 0-0.8 Monocytes % (Manual) March 12, 2013 5:00am 4.0 % N 0-9.0 Monocytes (%) (Auto) November 07, 2013 9:58am 6.5 % N 0-9.0 Neutrophils # (Auto) November 07, 2013 9:58am 3.0 T/MM3 N 1.8-7.7 Neutrophils # (Manual) March 12, 2013 5:00am 3.3 T/MM3 N 1.8-7.7 Neutrophils % (Manual) March 12, 2013 5:00am 37.0 % N 33-66 Neutrophils (%) (Auto) November 07, 2013 9:58am 49.5 % N 33-66 Platelet Count November 07, 2013 9:58am 274 T/MM3 N 130-400 Potassium Level November 07, 2013 9:58am 4.2 MEQ/L N 3.6-5 Prothromb Time International Ratio December 24, 2012 4:10pm 0.96 N 0.86- 1.10 THERAPUTIC RANGE=2.00-3.00 FOR ANTI-THROMBOSIS THERAPUTIC RANGE=2.50- 3.50 FOR IMPLANTED VALVE RDW Standard Deviation November 07, 2013 9:58am 46.5 FL N 36.9-50.2 Red Blood Count November 07, 2013 9:58am 4.38 M/MM3 N 4.00-5.20 Rheumatoid Factor July 21, 2008 7:25pm < 6 IU/ML 0-11 Salicylates Level August 16, 2012 12:37am < 1.0 MG/DL L 2-20 Sodium Level November 07, 2013 9:58am 143 MEQ/L N 134-144 Tests Not Done July 16, 2009 7:29pm Not done - Has specimen been collected/obtained? Y Thyroid Stimulating Hormone (TSH) December 24, 2012 4:10pm 0.46 MIU/L L 0.47-4.68 Total Bilirubin November 07, 2013 9:58am 0.40 MG/DL N 0.20-1.30 Total Creatine Kinase July 21, 2008 7:25pm 53 U/L N 30-135 Total Protein November 07, 2013 9:58am 7.1 G/DL N 6.3-8.2 Triglycerides Level November 13, 2008 5:55am 176 MG/DL H 35-135 Troponin I November 07, 2013 9:58am < 0.012 ng/ml 0-0.12 Unconjugated Bilirubin August 21, 2012 11:00pm 0.00 MG/DL N 0.00-1.10 Urine Amphetamines Screen August 17, 2012 12:45am Negative NG/ML - Urine Bacteria December 24, 2012 6:22pm 1+ H - Has specimen been collected/obtained? Y Urine Barbiturates Screen August 17, 2012 12:45am Negative NG/ML - Urine Benzodiazepines Screen August 17, 2012 12:45am Negative NG/ML - Urine Bilirubin November 07, 2013 10:30am Negative - Has specimen been collected/obtained? Y Urine Blood November 07, 2013 10:30am Negative - Has specimen been collected/obtained? Y Urine Cocaine Screen August 17, 2012 12:45am Negative NG/ML - Urine Collection Type November 07, 2013 10:30am Voided-not cc-midstr - Has specimen been collected/obtained? Y Urine Color November 07, 2013 10:30am Yellow - Has specimen been collected/obtained? Y Urine Culture Indicated December 24, 2012 6:22pm Cult reflexed &setup - Has specimen been collected/obtained? Y Urine Drug Screen Confirmation July 14, 2009 12:04am Sent out - Urine Glucose (UA) November 07, 2013 10:30am Negative - Has specimen been collected/obtained? Y Urine Ketones November 07, 2013 10:30am Negative - Has specimen been collected/obtained? Y Urine Leukocyte Esterase November 07, 2013 10:30am Negative - Has specimen been collected/obtained? Y Urine Methamphetamines Screen July 13, 2009 11:40pm Negative NG/ML - Urine Nitrite November 07, 2013 10:30am Negative - Has specimen been collected/obtained? Y Urine Opiates Screen August 17, 2012 12:45am Negative NG/ML - Urine Phencyclidine Screen July 13, 2009 11:40pm Negative NG/ML - Urine Protein November 07, 2013 10:30am Negative - Has specimen been collected/obtained? Y Urine RBC December 24, 2012 6:22pm None seen /HPF - Has specimen been collected/obtained? Y Urine Specific [place] November 07, 2013 10:30am <=1.005 L - Has specimen been collected/obtained? Y Urine Squamous Epithelial Cells December 24, 2012 6:22pm >50 - Has specimen been collected/obtained? Y Urine Tricyclic Antidepressants August 17, 2012 12:45am Negative NG/ML - Urine Turbidity November 07, 2013 10:30am Clear - Has specimen been collected/obtained? Y Urine Urobilinogen November 07, 2013 10:30am 0.2 EU/DL - Has specimen been collected/obtained? Y Urine WBC December 24, 2012 6:22pm 10-20 /HPF H - Has specimen been collected/obtained? Y Urine pH November 07, 2013 10:30am 6.0 - Has specimen been collected/ obtained? Y VLDL Cholesterol November 13, 2008 5:55am 35.2 MG/DL H 0-28 Vitamin D 1,25-Dihydroxy November 12, 2008 8:30pm Send out - White Blood Count November 07, 2013 9:58am 6.1 T/MM3 N 4.5-11.0 Chemistry Specimen Hemolysis November 07, 2013 9:58am 91 H 0-25 0-25: No Hemolysis.26-70: Slight Hemolysis - [...] Phenytoin. Recommend specimen recollection. Urinalysis Comment November 07, 2013 10:30am Microscopic not ind. - Has specimen been collected/obtained? Y Glucometer July 27, 2008 5:09pm 137 mg/dL - Lab Scanned Report August 17, 2012 2:35am REFERENCE LAB [id number] - EKG November 12, 2008 4:01pm Complete - HDL Cholesterol Direct November 13, 2008 5:55am 22 MG/DL L 40-60 Urine Methadone Screen August 17, 2012 12:45am Negative NG/ML - Urine Cannabinoids Screen August 17, 2012 12:45am Negative NG/ML - Anti-Nuclear Antibody (LAB) July 21, 2008 7:25pm Sent out - Turbidity November 07, 2013 9:58am < 20 0-20 Glomerular Filtration Rate Calc November 07, 2013 9:58am 87 - Immature Granulocyte # (Auto) November 07, 2013 9:58am 0.01 T/MM3 N 0.00- 0.03 Immature Granulocyte % (Auto) November 07, 2013 9:58am 0.2 % N 0.0-0.5 Icterus Index November 07, 2013 9:58am < 2 0-7 Urine Acetaminophen Screen July 13, 2009 11:40pm Positive NG/ML - VS-Mxc-F-Type Natriuretic Peptide November 07, 2013 9:58am 88 [...] Encounters Encounter Location Date/Time Departed Emergency Room [facility] 11/07/13 9:48am Departed Emergency Room [facility] 09/20/13 2:14am Recent Diagnosis
[2016-08-26] MEDS ORDERED: PROP20TA7 PO (17:49)
[2016-08-26] MEDS ORDERED: SUCR1TAB PO (17:50)
[2016-08-26] MEDS ORDERED: QUET50TA53 PO ×2 (17:52)
[2016-08-26] MEDS ORDERED: LORA1TAB3 PO (17:53)
[2016-08-26] MEDS ORDERED: RANI300T4 PO (17:54)
[2016-08-26] MEDS ORDERED: FLUT1DIS ORAL INH (17:54)
--- NOTE | 2016-08-26 18:07 | NUR ---
REPORT TO TICO CHISHOLM
--- OUTSIDE RECORDS SUMMARY | 2016-08-26 18:07 | XMS REPORT | Continuity of Care Document ---
Author Author [facility] Organization [facility] Address Unknown Phone Unavailable Support Name Relationship Address Phone JODY ORNELAS MD Caregiver [address] [place] [address] [place] [phone] BARTOLO FRIEDMAN MD Caregiver [address] [place], [place] [phone] RIYA POWERS Next Of Kin [address] [place] [address] Insurance Providers Payer Name Policy Number Subscriber Name Relationship Medicare [id number] Regine Dixon 20 Self Advance Directives Directive [...] Mg PO DAILY 02/21/14 Active Estradiol 1 [place] TOP DAILY 14 Days thoroughly after application. [...] F (96.8 - 99.1) Temperature (Calculated Celsius) 36.91656 degrees C (36.0 - 37.3) Pulse Rate [...] Has specimen been collected/obtained? Y Urine Specific [place] February 21, 2014 4:00pm <=1.005 L - [...] Report November 08, 2013 9:33pm REFERENCE LAB [id number] - EKG November 12, 2008 4:01pm Complete [...] February 21, 2014 4:00pm < 2 0-7 AX-Ook-N-Type Natriuretic Peptide November 07, 2013 9:58am 88 [...] Prob. Contaminants Name: REGINE DIXON Unit #: [id number] : 1955 Sex: F Loc / Svc: ED DOS: 11/23/13 Signed Report #: [id number] DIAGNOSTIC IMAGING REPORT TYPE OF EXAM: US [...] Encounters Encounter Location Date/Time Departed Emergency Room [facility] 02/21/14 3:05pm Departed Emergency Room [facility] 11/23/13 6:49pm Recent Diagnosis
--- OUTSIDE RECORDS SUMMARY | 2016-08-26 18:08 | XMS REPORT | Continuity of Care Document ---
Author Author [facility] Organization [facility] Address Unknown Phone Unavailable Support Name Relationship Address Phone LUMA PERRY MD Caregiver [address] [place] [address] [place] [phone] SANDRA MANTILLA Caregiver [address] [place] [address] VICKI POWERSFRANKI Wise Next Of Kin [address] [place] [address] Insurance Providers Payer Name Policy Number Subscriber Name Relationship Medicare [id number] Regine Dixon 20 Self Advance Directives Directive [...] F (96.8 - 99.1) Temperature (Calculated Celsius) 36.70048 degrees C (36.0 - 37.3) Temperature Source [...] Report November 08, 2013 9:33pm REFERENCE LAB [id number] - Lipase March 12, 2013 5:00am 184 [...] 06, 2014 8:17am 7.3 % N 0-9.0 AK-Hcg-I-Type Natriuretic Peptide November 07, 2013 9:58am 88 [...] Has specimen been collected/obtained? Y Urine Specific [place] May 18, 2014 4:45pm <=1.005 L - [...] Prob. Contaminants Name: REGINE DIXON Unit #: [id number] : 1955 Sex: F Loc / Svc: ED DOS: 05/18/14 Signed Report #: [id number] DIAGNOSTIC IMAGING REPORT TYPE OF EXAM: CT [...] diverticulitis. There is a preliminary report by [facility]. . Procedures Procedure Status Date Provider(s) CT ABD & PELVIS W/O CONTRAST completed 05/18/14 COMPREHEN METABOLIC PANEL completed 05/18/14 URINALYSIS AUTO W/O SCOPE completed 05/18/14 BL SMEAR W/DIFF WBC COUNT completed 05/18/14 COMPLETE CBC AUTOMATED completed 05/18/14 THER/PROPH/DIAG INJ IV PUSH completed 05/18/14 TX/PRO/DX INJ NEW DRUG ADDON completed 05/18/14 EMERGENCY DEPT VISIT completed 05/18/14 [id number]"INJECTION, ONDANSETRON HYDROCHLORIDE, PER 1 MG" completed 05/18/14 EMERGENCY DEPT VISIT completed 06/13/14 [id number] ITEM OR SERVICE completed 06/13/14 Encounters Encounter Location Date/Time Departed Clinic [facility] 07/06/14 7:50am Departed Emergency Room [facility] 06/13/14 4:01pm Departed Emergency Room [facility] 05/18/14 4:36pm
--- OUTSIDE RECORDS SUMMARY | 2016-08-26 18:08 | XMS REPORT | Continuity of Care Document ---
Author Author [facility] Organization [facility] Address Unknown Phone Unavailable Support Name Relationship Address Phone ADA GONCALVES DO Caregiver [facility] [address] [place] [address] BARTOLO FRIEDMAN MD Caregiver [address] [place] [address] RIYA POWERS Next Of Kin [address] [place] [address] Insurance Providers Payer Name Policy Number Subscriber Name Relationship Medicare [id number] Regine Dixon 20 Self Advance Directives Directive [...] F (96.8 - 99.1) Temperature (Calculated Celsius) 36.32897 degrees C (36.0 - 37.3) Pulse Rate [...] Has specimen been collected/obtained? Y Urine Specific [place] May 18, 2014 4:45pm <=1.005 L - [...] Report November 08, 2013 9:33pm REFERENCE LAB [id number] - EKG November 12, 2008 4:01pm Complete [...] May 18, 2014 5:33pm < 2 0-7 IB-Ngm-T-Type Natriuretic Peptide November 07, 2013 9:58am 88 [...] Encounters Encounter Location Date/Time Departed Emergency Room [facility] 05/18/14 4:36pm Departed Emergency Room [facility] 02/21/14 3:05pm Recent Diagnosis
--- OUTSIDE RECORDS SUMMARY | 2016-08-26 18:09 | XMS REPORT | Continuity of Care Document ---
Author Author [facility] Organization [facility] Address Unknown Phone Unavailable Allergies Active Description [...] Status Pt. Type Provider Facility Loc./Unit Complaint [id number] 03/31/2012 01:44:00 2011 02:25:00 DIS Emergency Shree Cheng MD [facility] [id number] 12/31/2011 15:51:00 2011 18:42:00 DIS Emergency Akbar Giles MD [facility] [id number] 12/08/2011 06:07:00 2011 07:40:00 DIS Emergency Iris MORALES, [facility] on [facility]
--- OUTSIDE RECORDS SUMMARY | 2016-08-26 18:09 | XMS REPORT | Continuity of Care Document ---
Author Author [facility] Organization [facility] Address Unknown Phone Unavailable Support Name Relationship Address Phone SANDRA MANTILLA Caregiver [address] [place] [address] RHONDA TRUJILLO MD Caregiver [address] [place] [address] [place] [phone] RIYA POWERS Next Of Kin [address] [place] [address] Insurance Providers Payer Name Policy Number Subscriber Name Relationship Medicare [id number] Regine Dixon 20 Self Advance Directives Directive [...] F (96.8 - 99.1) Temperature (Calculated Celsius) 36.80338 degrees C (36.0 - 37.3) Pulse Rate [...] Report November 08, 2013 9:33pm REFERENCE LAB [id number] - Lipase August 07, 2014 11:47pm 140 [...] 07, 2014 11:47pm 7.7 % N 0-9.0 JK-Qvm-Z-Type Natriuretic Peptide November 07, 2013 9:58am 88 [...] Has specimen been collected/obtained? Y Urine Specific [place] August 07, 2014 11:55pm >=1.030 H - [...] Prob. Contaminants Name: REGINE DIXON Unit #: [id number] : 1955 Sex: F Loc / Svc: ED DOS: 05/18/14 Signed Report #: [id number] DIAGNOSTIC IMAGING REPORT TYPE OF EXAM: CT [...] completed 05/18/14 EMERGENCY DEPT VISIT completed 05/18/14 [id number]"INJECTION, ONDANSETRON HYDROCHLORIDE, PER 1 MG" completed 05/18/14 EMERGENCY DEPT VISIT completed 06/13/14 [id number] ITEM OR SERVICE completed 06/13/14 REMV&REPLC PM GEN DUAL LEAD completed 07/06/14 LUMA PERRY MD ROUTINE VENIPUNCTURE completed 07/06/14 METABOLIC PANEL TOTAL CA completed 07/06/14 COMPLETE CBC W/AUTO DIFF WBC completed 07/06/14 PROTHROMBIN TIME completed 07/06/14 THROMBOPLASTIN TIME PARTIAL completed 07/06/14 ELECTROCARDIOGRAM TRACING completed 07/06/14 [id number] ITEM OR SERVICE completed 07/06/14 [id number] ITEM OR SERVICE completed 07/06/14"PACEMAKER, DUAL CHAMBER, [...] Encounters Encounter Location Date/Time Departed Emergency Room [facility] 08/07/14 10:12pm Departed Clinic [facility] 07/06/14 7:50am Departed Emergency Room [facility] 06/13/14 4:01pm Departed Emergency Room [facility] 05/18/14 4:36pm Recent Diagnosis
--- OUTSIDE RECORDS SUMMARY | 2016-08-26 18:09 | XMS REPORT | Continuity of Care Document ---
Author Author [facility] Organization [facility] Address Unknown Phone Unavailable Support Name Relationship Address Phone JORDY MALIK MD Caregiver [facility] [address] [place] [address] Unavailable BARTOLO FRIEDMAN MD Caregiver [address] [place] [address] SANDRA MANTILLA Caregiver [address] [place] [phone] RIYA POWERS Next Of Kin [address] [place] [address] Insurance Providers Payer Name Policy Number Subscriber Name Relationship Medicare [id number] Regine Dixon 20 Self Advance Directives Directive [...] F (96.8 - 99.1) Temperature (Calculated Celsius) 36.77281 degrees C (36.0 - 37.3) Pulse Rate [...] Has specimen been collected/obtained? Y Urine Specific [place] May 18, 2014 4:45pm <=1.005 L - [...] Report November 08, 2013 9:33pm REFERENCE LAB [id number] - EKG November 12, 2008 4:01pm Complete [...] May 18, 2014 5:33pm < 2 0-7 XT-Mxx-X-Type Natriuretic Peptide November 07, 2013 9:58am 88 [...] Prob. Contaminants Name: REGINE DIXON Unit #: [id number] : 1955 Sex: F Loc / Svc: ED DOS: 05/18/14 Signed Report #: [id number] DIAGNOSTIC IMAGING REPORT TYPE OF EXAM: CT RENAL W/O CONTRAST Dictated By: DNAIELITO GRANDA MD INDICATION: ITS.REASON: left flank/low back [...] diverticulitis. There is a preliminary report by [employer] radiologic. . Procedures Procedure Status Date Provider(s) CT ABD & PELVIS W/O CONTRAST completed 05/18/14 COMPREHEN METABOLIC PANEL completed 05/18/14 URINALYSIS AUTO W/O SCOPE completed 05/18/14 BL SMEAR W/DIFF WBC COUNT completed 05/18/14 COMPLETE CBC AUTOMATED completed 05/18/14 THER/PROPH/DIAG INJ IV PUSH completed 05/18/14 TX/PRO/DX INJ NEW DRUG ADDON completed 05/18/14 EMERGENCY DEPT VISIT completed 05/18/14 [id number]"INJECTION, ONDANSETRON HYDROCHLORIDE, PER 1 MG" completed 05/18/14 Encounters Encounter Location Date/Time Registered Emergency Room [facility] 06/13/14 4:01pm Departed Emergency Room [facility] 05/18/14 4:36pm Recent Diagnosis
--- OUTSIDE RECORDS SUMMARY | 2016-08-26 18:09 | XMS REPORT | Continuity of Care Document ---
Author Author [facility] Organization [facility] Address Unknown Phone Unavailable Support Name Relationship Address Phone BARTOLO FRIEDMAN MD Caregiver [address] [place] [address] ROSSY LANZA MD Caregiver [address] [place] [address] [place] [phone] RIYA POWERS Next Of Kin [address] [place] [address] Insurance Providers Payer Name Policy Number Subscriber Name Relationship Medicare [id number] Regine Dixon 20 Self Advance Directives Directive [...] F (96.8 - 99.1) Temperature (Calculated Celsius) 36.70443 degrees C (36.0 - 37.3) Pulse Rate [...] Has specimen been collected/obtained? Y Urine Specific [place] November 21, 2013 9:42pm <=1.005 L - [...] Report November 08, 2013 9:33pm REFERENCE LAB [id number] - EKG November 12, 2008 4:01pm Complete [...] November 21, 2013 9:24pm < 2 0-7 RU-Bvj-Q-Type Natriuretic Peptide November 07, 2013 9:58am 88 [...] Encounters Encounter Location Date/Time Departed Emergency Room [facility] 11/21/13 8:12pm Departed Emergency Room [facility] 11/09/13 5:52pm Departed Emergency Room [facility] 11/08/13 8:14pm Departed Emergency Room [facility] 11/07/13 9:48am Departed Emergency Room [facility] 09/20/13 2:14am Recent Diagnosis
--- OUTSIDE RECORDS SUMMARY | 2016-08-26 18:10 | XMS REPORT | Continuity of Care Document ---
Author Author [facility] Organization [facility] Address Unknown Phone Unavailable Support Name Relationship Address Phone BARTOLO FRIEDMAN MD Caregiver [address] [place] [address] RHONDA TRUJILLO MD Caregiver [address] [place] [address] [place] [phone] RIYA POWERS Next Of Kin [address] [place] [address] Insurance Providers Payer Name Policy Number Subscriber Name Relationship Medicare [id number] Regine Dixon 20 Self Advance Directives Directive [...] F (96.8 - 99.1) Temperature (Calculated Celsius) 36.29695 degrees C (36.0 - 37.3) Pulse Rate [...] Has specimen been collected/obtained? Y Urine Specific [place] November 21, 2013 9:42pm <=1.005 L - [...] Report November 08, 2013 9:33pm REFERENCE LAB [id number] - EKG November 12, 2008 4:01pm Complete [...] November 23, 2013 8:15pm < 2 0-7 AX-Hfv-S-Type Natriuretic Peptide November 07, 2013 9:58am 88 [...] Encounters Encounter Location Date/Time Departed Emergency Room [facility] 11/23/13 6:49pm Departed Emergency Room [facility] 11/21/13 8:12pm Departed Emergency Room [facility] 11/09/13 5:52pm Departed Emergency Room [facility] 11/08/13 8:14pm Departed Emergency Room [facility] 11/07/13 9:48am Departed Emergency Room [facility] 09/20/13 2:14am Recent Diagnosis
--- OUTSIDE RECORDS SUMMARY | 2016-08-26 18:10 | XMS REPORT | Continuity of Care Document ---
Author Author [facility] Organization [facility] Address Unknown Phone Unavailable Support Name Relationship Address Phone JORDY MALIK MD Caregiver [facility] [address] [address] Unavailable RIYA POWERS Next Of Kin [address] [place] [address] Insurance Providers Payer Name Policy Number Subscriber Name Relationship Medicare [id number] Regine Dixon 20 Self Advance Directives Directive [...] F (96.8 - 99.1) Temperature (Calculated Celsius) 36.32455 degrees C (36.0 - 37.3) Pulse Rate [...] Has specimen been collected/obtained? Y Urine Specific [place] November 08, 2013 8:50pm 1.020 - Has [...] Report November 08, 2013 9:33pm REFERENCE LAB [id number] - EKG November 12, 2008 4:01pm Complete [...] November 08, 2013 8:37pm < 2 0-7 MV-Qzh-T-Type Natriuretic Peptide November 07, 2013 9:58am 88 [...] Encounters Encounter Location Date/Time Departed Emergency Room [facility] 11/08/13 8:14pm Departed Emergency Room [facility] 11/07/13 9:48am Departed Emergency Room [facility] 09/20/13 2:14am Recent Diagnosis
--- OUTSIDE RECORDS SUMMARY | 2016-08-26 18:10 | XMS REPORT | Continuity of Care Document ---
Author Author [facility] Organization [facility] Address Unknown Phone Unavailable Support Name Relationship Address Phone JORDY MALIK MD Caregiver [facility] [address] [place] [address] Unavailable RIYA POWERS Next Of Kin [address] [place] [address] Insurance Providers Payer Name Policy Number Subscriber Name Relationship Medicare [id number] Regine Dixon 20 Self Advance Directives Directive [...] F (96.8 - 99.1) Temperature (Calculated Celsius) 36.02348 degrees C (36.0 - 37.3) Pulse Rate [...] Has specimen been collected/obtained? Y Urine Specific [place] November 08, 2013 8:50pm 1.020 - Has [...] Report November 08, 2013 9:33pm REFERENCE LAB [id number] - EKG November 12, 2008 4:01pm Complete [...] November 08, 2013 8:37pm < 2 0-7 QS-Jho-K-Type Natriuretic Peptide November 07, 2013 9:58am 88 [...] Encounters Encounter Location Date/Time Departed Emergency Room [facility] 11/09/13 5:52pm Departed Emergency Room [facility] 11/08/13 8:14pm Departed Emergency Room [facility] 11/07/13 9:48am Departed Emergency Room [facility] 09/20/13 2:14am Recent Diagnosis
--- OUTSIDE RECORDS SUMMARY | 2016-08-26 18:11 | XMS REPORT | Continuity of Care Document ---
Author Author [facility] Organization [facility] Address Unknown Phone Unavailable Support Name Relationship Address Phone BARTOLO FRIEDMAN MD Caregiver [address] [place] [address] ROSSY LANZA MD Caregiver [address] [place] [address] [place] [phone] RIYA POWERS Next Of Kin [address] [place], [place] [id number] Insurance Providers Payer Name Policy Number Subscriber Name Relationship Medicare [id number] Regine Dixon 20 Self Advance Directives Directive [...] F (96.8 - 99.1) Temperature (Calculated Celsius) 36.97037 degrees C (36.0 - 37.3) Pulse Rate [...] Has specimen been collected/obtained? Y Urine Specific [place] November 07, 2013 10:30am <=1.005 L - [...] Report August 17, 2012 2:35am REFERENCE LAB [id number] - EKG November 12, 2008 4:01pm Complete [...] July 13, 2009 11:40pm Positive NG/ML - ZQ-Uxh-R-Type Natriuretic Peptide November 07, 2013 9:58am 88 [...]
[2016-08-26] MEDS ORDERED: CLONAZEPAM 0.5 MG TABLET PO ONE (18:30)
--- NOTE | 2016-08-26 18:43 | ERPDOC ---
Departure Disposition Decision Date: Aug 26, 2016 Disposition Decision Time: 18:48 Disposition: 01 DISCHARGED HOME, SELF-CARE Impression Impression Impression: Primary Impression: Anxiety and depression Additional Impression: Bipolar 1 disorder Severity: Moderate Condition: Improved Seen By: Physician only Referrals: YOUR PHYSICIAN Patient Instructions: Anxiety (ED) Problems/Meds/Labs Reviewed?: Yes Medications reviewed and manag: Yes Additional Instructions: Without access to your Physician's charts, I cannot determine why your medications were changed. Because klonazepam is longer acting, has less risk of dependence, and does not cause the euphoria of ativan or xanax, I will re- prescribe this medication instead of ativan. You will need to follow up with a Physician to discuss changing back to abilify or another medication for you Bipolar disorder. There is an [facility]GER [facility]PORATE at [facility] in [place] that does prescribe medications. There are also doctors in [place] and [place] who might be able to help you. Follow up care ordered?: Yes Mental Status: Alert, Oriented Scripts Clonazepam (Klonopin) 0.5 Mg Tablet 0.5 TAB PO BID for 30 Days, #60 TAB Prov: CRISTY CROWELL DO 08/26/16 HPI - General Medical General Chief Complaint: General Stated Complaint: ANXIETY Time Seen by Provider: 17:58 Source: patient Exam Limitations: no limitations HPI - General Medical Initial Comments 61yo woman presents to the ER [facility] with an acute anxiety attack. She is a known type I bipolar with anxiety. She was stable on a regimen of abilify 2mg with klonazepam for anxiety. Her prescribing physician has moved out of the [facility], so the pt started seeing Ms. SoriaGRACIA in [place]. Ms. Soria increased her Abilify to 5mg, then changed her to seroquel and changed her klonazepam to ativan. Pt does not understand why the changes were made; apparently was stable prior to the med changes. Pt is scared and c/o tingling sensation with seroquel. Occurred At: home Onset: Gradual, Getting worse Duration: 1 week Severity: severe Modifying Factors: WORSE WITH: medication Hx of Similar Symptoms: Yes Allergies: Coded Allergies: fluoxetine (Verified Allergy, Unknown, 08/26/16) sulfamethoxazole (Verified Allergy, Unknown, 08/26/16) trimethoprim (Verified Allergy, Unknown, 08/26/16) Past History Past Medical History ENMT: allergies Hx Echocardiogram: Yes Respiratory: asthma, pulmonary embolus GI: GERD, IBS Female: UTI Neurological: CVA, chronic disability, fibromyalgia, headaches, multiple sclerosis Musculoskeletal: back pain Hematologic: DVT Psychological: anxiety, bipolar, depression Surgical History General: hernia, other Cardiac: pacemaker Reproductive/: hysterectomy, tubal ligation Family History Family PMH: FOUND: [place], diabetes, hypertension Vaccines Hx Influenza Vaccination: Yes (FALL 2014) Hx Pneumococcal Vaccination: No Hx Tetanus Diptheria: No Social History Does patient use chewing tobac: Yes # of Packs/Tins per Day: 1 # of Years: 40 Second Hand Exposure: No Substance Use Type: does not use Alcohol Intake: none Marital Status: Single Housing: apartment Service: No Occupational Hazard: No Review of Systems Neurological General: other (paresthesias) Psychiatric Psychiatric: anxiety, depression, emotional instability, nervousness All other Systems All Other Systems: Reviewed and Negative Physical Exam General General Nourishment: well nourished, well developed, appears stated age, adult , acute distress General Body Habitus: well groomed Vitals and Pain First Documented Vital Signs Date Time Temp Pulse Resp B/P Pulse Ox O2 Delivery O2 Flow Rate FiO2 08/26/16 17:33 99.4 97 20 147/72 97 Room Air Weight: Kilograms: 81.100 Height (feet): 5 Height (inches): 7.00 Triage Pain Scale: RN VS reviewed by Provider: Yes Psychiatric (brief) Psychiatric Brief: FOUND: alert, oriented, NOT FOUND: normal affect (Labile, anxious) Supervisory Exam Head: atraumatic Eyes: PERRL Nares: no exudate Neck: trachea midline Chest: symmetric Abdomen: non-distended Musculoskeletal: no deformity or atrophy Neurological: no abnormal movements Skin: pink, dry Differential Diagnoses Considering: Depression, Other (anxiety, hypochondriasis, adj d/o) Progress Results/Orders Orders Procedure Category Date Status Time Clonazepam (Klonopin) PHA 08/26/16 Complete 18:30 Medications Current ED Medications Clonazepam (Klonopin) 0.5 mg O ONCE PO Last administered on 08/26/16t 18:31; Start 08/26/16 at 18:30; Stop 08/26/16 at 18:31; Status DC Progress Progress Long discussion held with pt regarding the expected changes of klonazepam to ativan. Discussed prescribing mental health providers and how to obtain care. Unclear why pt was taken off abilify, especially if it kept a bipolar pt stable. After discussion, will change pts ativan back to klonazepam, since these medications act similarly, but klonazepam is longer acting and has less risk of dependence and intoxication. Pt will f/u with local and distant providers to change back to abilify and/or a stable regimen. Pt voiced understanding of dx, prognosis, and tx. Pt visibly less anxious after discussion and plan to change back to klonazepam. CRISTY CROWELL DO Aug 26, 2016 18:43
[2016-08-26] MEDS ORDERED: CLON0.5T PO (18:51)
[2016-08-26 19:00] VITALS: BP 128/75; PULSE 72; RESP 16; TEMP 98.8; O2SAT 95
--- NOTE | 2016-08-26 19:00 | NUR ---
DISMISS PT'S GAIT STEADY, STATES "I FEEL MORE RELAXED." PT DISMISSED AMBULATORY TO LOBBY.
== END 2016-08-26 19:00 | disposition home or self-care (01) ==
LOC: ED 17:28
DX: F41.8 Other specified anxiety disorders (principal); F31.9 Bipolar disorder, unspecified
CPT/HCPCS: 99283; A9270

== ENCOUNTER 2017-02-20 14:13 | Inpatient (IN) ==
--- NOTE | 2017-02-20 14:41 | Emergency Department Report ---
Psych HPI - General Chief Complaint: Psychiatric Symptoms Stated Complaint: suicidal Time Seen by Provider: 02/20/17 14:40 - Related Data Home Medications Medication Instructions Recorded Confirmed Venlafaxine HCl [Effexor Xr] 150 mg PO WB #0 01/21/16 02/03/17 Fluticasone/Salmeterol [Advair 1 puff ORAL INH RTBID #0 08/26/16 02/03/17 100-50 Diskus] raNITIdine HCl [Ranitidine HCl] 300 mg PO DAILY #0 08/26/16 02/03/17 ClonazePAM [Klonopin] 1 mg PO TID 02/03/17 02/03/17 Allergies Allergy/AdvReac Type Severity Reaction Status Date / Time fluoxetine Allergy Unknown Verified 02/03/17 17:18 sulfamethoxazole Allergy Unknown Verified 02/03/17 17:18 trimethoprim Allergy Unknown Verified 02/03/17 17:18 [facility] Patient Stated Medical History Cerebrovascular Accident Yes: 1982 Migraine Yes: HX OF Angina Yes Chronic Obstructive Pulmonary Yes Disease (COPD) Pneumonia Yes: HX Sleep Apnea Yes Gastroesophageal Reflux Yes Disease Other Yes: DILATION OF URETHRA Clotting Problems Yes: 'BLOOD CLOT IN LUNG ONE TIME' Osteoarthritis Yes Shingles Yes: HX OF Depression Yes Clinic Medical History Anxiety (Acute Medical) Brain tumor (Acute Medical) COPD (chronic obstructive pulmonary disease) (Acute Medical) Depression (Acute Medical) Migraines (Acute Medical) Pacemaker (Acute Medical) Panic attacks (Acute Medical) Surgical History: *hysterectomy. *pacemaker. *hernia repair. *brain tumor removed Family History: Family History Other COPD (chronic obstructive pulmonary disease) Cancer Diabetes - Social History Smoking status: Current every day smoker Course Vital Signs Temperature 98.2 F 02/20/17 14:19 Pulse Rate 79 02/20/17 14:19 Respiratory Rate 16 02/20/17 14:19 Blood Pressure 143/81 H 02/20/17 14:19 Pulse Oximetry 96 02/20/17 14:19 Temperature 98.2 F 02/20/17 14:19 Pulse Rate 79 02/20/17 14:19 Respiratory Rate 16 02/20/17 14:19 Blood Pressure 143/81 H 02/20/17 14:19 Pulse Oximetry 96 02/20/17 14:19 Psych - Lab Data Result diagrams: 02/20/17 15:13 02/20/17 15:13 Lab Results 02/20/17 02/20/17 02/20/17 Range/Units 15:03 15:13 15:13 WBC 7.9 (4.5-11.0) T/MM3 RBC 4.49 (4.00-5.20) M/MM3 Hgb 13.8 (12-16) GM/DL Hct 41.0 (36-46) % MCV 91.3 (80-100) UM3 MCH 30.7 (26-34) UUG MCHC 33.7 (31-37) GM/DL RDW Std Deviation 42.6 (36.9-50.2) FL Plt Count 306 (130-400) T/MM3 MPV 9.4 (9.4-12.4) UM3 Immature Gran % (Auto) 0.1 (0.0-0.5) % Neut % (Auto) 46.4 (33-66) % Lymph % (Auto) 43.7 (23-45) % Sac % (Auto) 5.8 (0-9.0) % Eos % (Auto) 3.6 (0-4) % Baso % (Auto) 0.4 (0-2) % Neut # (Auto) 3.7 (1.8-7.7) T/MM3 Lymph # (Auto) 3.4 (1-4.8) T/MM3 Sac # (Auto) 0.5 (0-0.8) T/MM3 Eos # (Auto) 0.3 (0-0.5) T/MM3 Baso # (Auto) 0.0 (0-0.2) T/MM3 Abs Immat Gran (auto) 0.01 (0.00-0.03) T/MM3 Turbidity < 20 (0-20) Sodium 146 H (134-144) MEQ/L Potassium 4.1 (3.6-5) MEQ/L Chloride 108 H (98-107) MEQ/L Carbon Dioxide 25 (22-30) MEQ/L Anion Gap 13 (5-15) MEQ/L BUN 7.0 (7-17) MG/DL Creatinine 0.9 (0.7-1.2) MG/DL GFR Calculation 64 BUN/Creatinine Ratio 8 (6-26) RATIO Glucose 97 (65-110) MG/DL Calculated Osmolality 279 (261-280) MOSM/KG Calcium 8.9 (8.4-10.2) MG/DL Total Bilirubin 0.20 (0.20-1.30) MG/DL Icterus Index < 2 (0-7) AST 27 (14-36) U/L ALT 34 (9-52) U/L Alkaline Phosphatase 92 (38-126) U/L Total Protein 7.7 (6.3-8.2) G/DL Albumin 4.1 (3.5-5.0) G/DL Globulin 3.6 (2.4-3.6) G/DL Albumin/Globulin Ratio 1.1 (1.1-2.2) RATIO Specimen Hemolysis 27 H (0-25) Ur Collection Type Urine, clean catch Urine Color Yellow (YELLOW) Urine Clarity Clear Urine pH 5.5 (5.0-8.0) Ur Specific [place] <=1.005 L (1.015-1.025) Urine Protein Negative (NEGATIVE) Urine Glucose (UA) Negative (NEGATIVE) Urine Ketones Negative (NEGATIVE) Urine Occult Blood Negative (NEGATIVE) Urine Nitrate Negative (NEGATIVE) Urine Bilirubin Negative (NEGATIVE) Urine Urobilinogen 0.2 (NORMAL) EU/DL Ur Leukocyte Esterase Negative (NEGATIVE) Urinalysis Comment Microscopic not ind. Disposition Clinical Impression: Depression Qualifiers: Depression Type: major depressive disorder Major depression recurrence: recurrent Active/Remission status: currently active Major depression episode severity: severe Psychotic features: without psychotic features Qualified Code(s ): F33.2 - Major depressive disorder, recurrent severe without psychotic features Disposition: 67 To [facility] Generations Condition: Stable Prescriptions: No Action Fluticasone/Salmeterol [Advair 100-50 Diskus] 1 puff ORAL INH RTBID #0 Venlafaxine HCl [Effexor Xr] 150 mg PO WB #0 raNITIdine HCl [Ranitidine HCl] 300 mg PO DAILY #0 ClonazePAM [Klonopin] 1 mg PO TID Referrals: Roxy Mullins APRN [Family Provider] - Time of Disposition: 16:05 - Seen By: physician
--- OUTSIDE RECORDS SUMMARY | 2017-02-20 15:13 | External Medical Summary ---
:1955 Author Organization eClinicalWorks Care Team Providers Name Role Phone Janna Mcfarlane Provider Role Unavailable Allergies, Adverse Reactions, Alerts Substance Reaction Event Type Septra Info Not Available Drug Allergy Prozac Info Not Available Drug Allergy Problems Problem Type Condition Code Onset Dates Condition Status Problem Major depressive disorder, recurrent 296.33 Active episode, severe, without mention of psychotic behavior Problem Mood disorder in conditions 293.83 Active classified elsewhere Problem Generalized anxiety disorder 300.02 Active Assessment Tinea unguium B35.1 Active Medications Medication Code System Code Instructions Start End Date Status Dosage Date Abilify [facility] 73153-01 2 MG Orally Once 1 tablet 07-15 a day Advair Diskus [facility] 04598-20 250-50 MCG/DOSE 1 puff 96-00 Inhalation Twice a day Clonazepam [facility] 38972-75 1 MG Orally four 1 tablet 33-01 times a day Trazodone HCl [facility] 23659-72 300 MG Orally 1 tablet at 74-01 Once a day bedtime Protonix NDC 79111-30 40 MG Orally 1 tablet 41-81 Once a day Gabapentin NDC 79935-83 800 MG Orally 2 1 tablet 44-01 times a day Effexor XR [facility] 29376-08 150 MG Orally 1 capsules 36-02 Once a day with food Procedures Procedure Coding System Code Date OFFICE VISIT, EST-LOW COMPLEXITY (15 MIN.) CPT-4 20403 Dec 28, 2015 [facility] visit Established Patient CPT-4 G0467 Dec 28, 2015 Vital Signs Date/Time: Dec 28, 2015 Temperature 98.1 F Height 67.25 in Weight 184.9 lbs Blood Pressure Diastolic 60 mm Hg Blood Pressure Systolic 110 mm Hg Cardiac Monitoring Heart Rate 87 /min BMI 28.74 Index Oximetry 98 % Respiratory Rate 16 /min Results No Known Results Summary Purpose eClinicalWorks Submission
--- OUTSIDE RECORDS SUMMARY | 2017-02-20 15:13 | External Medical Summary ---
:1955 Author Organization eClinicalWorks Care Team Providers Name Role Phone Veronica Escobedo Provider Role Unavailable Allergies, Adverse Reactions, Alerts Substance Reaction Event Type Septra Info Not Available Drug Allergy Prozac Info Not Available Drug Allergy Problems Problem Type Condition ICD-9 Code Onset Dates Condition Status Problem Major depressive disorder, 296.33 Active recurrent episode, severe, without mention of psychotic behavior Problem Mood disorder in conditions 293.83 Active classified elsewhere Problem Generalized anxiety disorder 300.02 Active Assessment Mood disorder in conditions 293.83 Active classified elsewhere Assessment Generalized anxiety disorder 300.02 Active Assessment Major depressive disorder, 296.33 Active recurrent episode, severe, without mention of psychotic behavior Medications Medication Code Code Instructions Start End Date Status Dosage System Date Gabapentin NDC 30636-86 800 MG Orally 1 tablet 44-01 Four times a day Trazodone HCl NDC 00990-43 50 MG Orally 1 tablet at 37-01 Once a day bedtime HydrOXYzine HCl NDC 04851-88 25 MG Orally November 11, 1 tablet 61-01 Three times a 2014 day Effexor XR NDC 87136-04 150 MG Orally 2 capsules 36-02 Once a day with food Clonazepam NDC 14642-05 1 MG Orally 1 tablet 33-01 three times a day Latuda NDC 61717-63 40 MG Orally November 11, 1 tablet 04-01 Once a day 2014 with food Zantac 150 NDC 43448-28 150 MG Orally 1 tablet Maximum 20-24 Twice a day Strength Procedures Procedure Coding System Code Date [facility] Establ[facility] Patient CPT-4 G0467 November 11, 2014 OFFICE VISIT, EST-LOW COMPLEXITY (15 MIN.) CPT-4 02619 November 11, 2014 [facility] CPT-4 04289 November 11, 2014 Vital Signs Date/Time: November 11, 2014 Height 67.25 in Weight 197.8 lbs Temperature 97.6 F Blood Pressure Diastolic 78 mm Hg Blood Pressure Systolic 113 mm Hg Cardiac Monitoring Heart Rate 99 /min BMI 30.75 Index Respiratory Rate 18 /min Results Name Result Date Reference Range Unit Abnormality Flag In House CMP Summary Purpose eClinicalWorks Submission
--- OUTSIDE RECORDS SUMMARY | 2017-02-20 15:13 | External Medical Summary ---
:1955 Author Organization eClinicalWorks Care Team Providers Name Role Phone Roxy Mullins Provider Role Unavailable Allergies No Known Allergies Problems Problem Type Condition Code Onset Dates Condition Status Problem Multiple sclerosis G35 Active Problem Pacemaker Z95.0 Active Problem Atherosclerosis I70.90 Active Problem Mood disorder in conditions F06.30 Active classified elsewhere Problem Generalized anxiety disorder F41.1 Active Problem Major depressive disorder, recurrent F33.2 Active episode, severe Medications No Known Medications Results No Known Results Summary Purpose eClinicalWorks Submission
--- OUTSIDE RECORDS SUMMARY | 2017-02-20 15:13 | External Medical Summary ---
:1955 Author Organization eClinicalWorks Care Team Providers Name Role Phone Veronica Escobedo Provider Role Unavailable Allergies No Known Allergies Problems Problem Type Condition ICD-9 Code Onset [...] Start End Date Status Dosage System Date Effexor XR NDC 34619-17 150 MG Orally 2 capsules 36-02 Once a day with food Gabapentin NDC 03684-76 800 MG Orally 1 tablet 44-01 Four times a day Trazodone HCl NDC 37326-95 50 MG Orally 1 tablet at 37-01 Once a day bedtime HydrOXYzine HCl NDC 75621-04 25 MG Orally November 11, 1 tablet 61-01 Three times a 2014 day Latuda NDC 45713-86 40 MG Orally November 11, 1 tablet 04-01 Once a day 2014 with food Zantac 150 NDC 06918-22 150 MG Orally 1 tablet Maximum 20-24 Twice a day Strength Clonazepam NDC 45759-59 1 MG Orally 1 tablet 33-01 three times a day Procedures Procedure Coding System Code Date TSH CPT-4 93681 November 11, 2014 COMPLETE CBC W/AUTO DIFF WBC CPT-4 91166 November 11, 2014 Results No Known Results Summary Purpose eClinicalWorks Submission
--- OUTSIDE RECORDS SUMMARY | 2017-02-20 15:13 | External Medical Summary ---
:1955 Author Organization eClinicalWorks Care Team Providers Name Role Phone Roxy Mullins Provider Role Unavailable Allergies, Adverse Reactions, Alerts Substance Reaction Event Type Septra Info Not Available Drug Allergy Prozac Info Not Available Drug Allergy Problems Problem Type Condition Code Onset Dates Condition Status Assessment Chronic obstructive pulmonary J44.9 Active disease, unspecified COPD type Assessment Major depressive disorder, recurrent F33.2 Active episode, severe Assessment Mood disorder in conditions F06.30 Active classified elsewhere Assessment Atherosclerosis I70.90 Active Assessment Chronic GERD K21.9 Active Problem Multiple sclerosis G35 Active Problem Pacemaker Z95.0 Active Problem Atherosclerosis I70.90 Active Problem Mood disorder in conditions F06.30 Active classified elsewhere Assessment Generalized anxiety disorder F41.1 Active Problem Generalized anxiety disorder F41.1 Active Problem Major depressive disorder, recurrent F33.2 Active episode, severe Medications Medication Code System Code Instructions Start End Date Status Dosage Date Abilify [facility] 73384-72 2 MG Orally Once 1 tablet 07-15 [place] [address]-40 100-50 MCG/DOSE 1 puff 96-00 Inhalation Twice a day Effexor XR NDC 41737-16 150 MG Orally 1 capsules 36-02 Once a day with food Gabapentin NDC 57042-88 800 MG Orally 4 1 tablet 44-01 times a day Protonix NDC 75343-64 40 MG Orally 1 tablet 41-81 Once a day Clonazepam NDC 19237-66 1 MG Orally four 1 tablet 33-01 times a day Procedures Procedure Coding System Code Date OFFICE VISIT, CARE ADVOCATE-LOW COMPLEXITY (30 MIN.) CPT-4 51110 Jan 30, 2016 [facility] visit New Patient CPT-4 G0466 Jan 30, 2016 Vital Signs Date/Time: Jan 30, 2016 Temperature 97.4 F Height 67.25 in Weight 186 lbs Blood Pressure Diastolic 70 mm Hg Blood Pressure Systolic 120 mm Hg Cardiac Monitoring Heart Rate 81 /min BMI 28.91 Index Oximetry 96 % Respiratory Rate 16 /min Results No Known Results Summary Purpose eClinicalWorks Submission
--- OUTSIDE RECORDS SUMMARY | 2017-02-20 15:14 | External Medical Summary ---
[...] elsewhere Problem Generalized anxiety disorder 300.02 Active Medications Medication Code System Code Instructions Start End Date Status Dosage Date Zantac [address] [facility] 77805-026 150 MG Orally 1 tablet Maximum 0-24 Twice a day Strength Results No Known Results Summary Purpose eClinicalWorks Submission
--- NOTE | 2017-02-20 15:36 | XRay Report ---
Indication: generations screening PROCEDURE: XR chest 1V: Encounter: Initial Comparison: February 03, 2017 Findings: The lungs are stable in appearance without new focal airspace consolidation. There is no pleural effusion or pneumothorax. The heart size, pulmonary vascularity and mediastinal contours are unchanged. Left pacemaker. IMPRESSION: Stable appearance of the chest without acute cardiopulmonary disease. .
--- NOTE | 2017-02-20 16:18 | CT Scan Report ---
Indication: generations clearance PROCEDURE: CT head/brain wo con: Encounter: Initial Comparison: September 09, 2015 Technique: Axial CT images through the head were performed without contrast. Iterative Reconstruction dose reducing technique was utilized. FINDINGS: Postoperative changes in the left cerebellum. The ventricles are unchanged. Extensive white matter disease, similar to prior studies. The brainstem, cerebellum, and cerebral hemispheres otherwise have a normal morphology and CT attenuation. There is no evidence of midline displacement. No hemorrhage, signs of acute territorial stroke, mass effect, mass lesions, or edema is evident. Prior left occipital craniotomy. The visualized portions of the skull base, midface, and calvarium demonstrate no acute abnormality. The paranasal sinuses are well aerated and free of significant disease. The tympanic and mastoid cavities appear normal. IMPRESSION: No acute intracranial abnormality or hemorrhage. .
[2017-02-20] MEDS ORDERED: HALOPERIDOL 5 MG/ML INJECTION IM PRN (16:55)
[2017-02-20] MEDS: ClonazePAM 1 MG TABLET PO SCH (19:48)
[2017-02-20] MEDS: HALOPERIDOL 0.5 MG TABLET PO PRN (20:21)
[2017-02-20] MEDS: LORazepam 0.5 MG TABLET PO PRN (20:22)
--- NOTE | 2017-02-20 20:29 | 24 Hour Neuropsychiatic Eval ---
Date of Admission: 02/20/17 16:55 Chief complaint: "I feel anxious" History of Present Illness: HPI: 61 Y/O CF admitted for increasing anxiety and depression and morbid thoughts that life is not worth living. Denies S/I. STRESSORS: Pt states she recently moved to an apartment and feels it is in an unsafe area. She reports her son has drug issues and is homeless. She reports she has financial issues. She reports she feels isolated and has limited support. PSYCH ROS: Pt reports feeling depressed with poor sleep, low interest, energy and motivation. Feelings of guilt and morbid thoughts. Anhedonia at times. She reports having high anxiety and panic symptoms at times. She denies brynn or psychosis. She does report some nightmares and flashbacks with hypervigilance due to past trauma. PAST PSYCH: PT states she has had numerous hospitalizations in the past. She was most recently admitted to in 2016. She had one SA in her life. She is currently ebingn seen at [facility] in [facility]. SUBSTANCE ABUSE: Has a hx of ETOH use but has not drank for some time. [facility] Clinic Medical History Anxiety (Acute Medical) Brain tumor (Acute Medical) COPD (chronic obstructive pulmonary disease) (Acute Medical) Depression (Acute Medical) Migraines (Acute Medical) Pacemaker (Acute Medical) Panic attacks (Acute Medical) Surgical History: *hysterectomy. *pacemaker. *hernia repair. *brain tumor removed Family History: Family History Other COPD (chronic obstructive pulmonary disease) Cancer Diabetes - Social History Smoking status: Current every day smoker Review of Systems - Psychiatric Psychiatric: Present: abnormal sleep pattern, anhedonia, anxiety, depression, hopelessness Mental Status Exam Vitals: Last Vital Signs Temp 98.2 F 02/20/17 14:19 Pulse 79 02/20/17 14:19 Resp 16 02/20/17 14:19 BP 143/81 H 02/20/17 14:19 Pulse Ox 96 02/20/17 14:19 Height: 1.73 m Weight: 76.9 kg - Mental Status Exam Muscle Strength/Tone: Normal Dressing: Casual Grooming: Good Attitude: Cooperative Motor Activity: Retardation Eye Contact: Fair Speech: Slowed Volume: Soft Rhythm: Appropriate Rhythm Orientation: Oriented X4 Mood: Depressed, Anxious Affect: Sad Rate of Thoughts: Delayed Thought Organization: [facility] Associations: Intact Abstract Reasoning: Intact, able to abstract Computation: Intact Thought Content: Hopelessness, Helplessness, Worthlessness Perception/Psychotic: Perception Normal Language: Naming Intact Fund of Knowledge: Appropriate Memory: Grossly Intact Suicidal Ideation: Denies Homicidal Ideation: Denies Insight: Poor Judgement: Poor Impulse Control: Poor - Laboratory Result Diagrams: 02/20/17 15:13 02/20/17 15:13 Assessment and Plan (1) MDD (major depressive disorder), recurrent severe, without psychosis Current visit: Yes Status: Acute (2) PTSD (post-traumatic stress disorder) Current visit: Yes Status: Acute (3) PTSD (post-traumatic stress disorder) Problem details: Suspect Current visit: Yes Status: Acute Continue to evaluate and stabilize. Restart home meds and will increase Effexor XR to 225mg daily as pt feels this was helpful in the past
[2017-02-20] MEDS ORDERED: TRAZODONE 50 MG TABLET PO ONE (23:45)
[2017-02-20 23:50] VITALS: BMI 25.7
[2017-02-21] MEDS: NICOTINE 14 MG PATCH TD SCH (10:22)
[2017-02-21] MEDS: Venlaflaxine XR 75 MG CAPSULE (24hr) PO SCH (10:23)
[2017-02-21] MEDS: RANITIDINE 300 MG TABLET PO SCH (10:23)
[2017-02-21] MEDS: ClonazePAM 1 MG TABLET PO SCH ×3 (10:23→20:10)
[2017-02-21] MEDS ORDERED: ACETAMINOPHEN 325 MG TABLET PO PRN (11:49)
[2017-02-21] MEDS: IBUPROFEN 600 MG TABLET PO PRN (13:38)
--- NOTE | 2017-02-21 16:28 | History & Physical Report ---
<Brook Christie V - Last Filed: 02/21/17 16:22> History of Present Illness Date: 02/21/17 Chief complaint: depression HPI: Susie is a 61-year-old female with a significant history for depression and anxiety. She presented to the emergency room last evening reporting that she needed help with her depression. She has had thoughts of suicide without a plan. She does have an appointment set up with psychiatrist in [place] next Saturday, however, did not feel that she could wait until that long to be safe. She states that she is depressed. Given her current housing situation at bedtime to hours in [place], accompanied with other personal stressors. Medical evaluation was completed in the emergency room. CBC was found to be normal, chemistry panel normal other than mild hyper hyponatremia with a sodium of 146. Urinalysis was normal. Chest x-ray revealed no acute cardiopulmonary process, and CT scan of the head showed no acute intracranial abnormality or hemorrhage. Patient does have a history of a brain tumor and post- craniotomy scar is noted. Once medically cleared. Patient was screened and accepted to the [facility] unit for ongoing inpatient psychiatric evaluation, treatment. [facility] Patient Stated Medical History Cerebrovascular Accident Yes: 1982 Migraine Yes: HX OF Angina Yes Chronic Obstructive Pulmonary Yes Disease (COPD) Pneumonia Yes: HX Sleep Apnea Yes Gastroesophageal Reflux Yes Disease Other Yes: DILATION OF URETHRA Clotting Problems Yes: 'BLOOD CLOT IN LUNG ONE TIME' Osteoarthritis Yes Shingles Yes: HX OF Depression Yes Clinic Medical History Anxiety (Acute Medical) Brain tumor (Acute Medical) COPD (chronic obstructive pulmonary disease) (Acute Medical) Depression (Acute Medical) Migraines (Acute Medical) Pacemaker (Acute Medical) Panic attacks (Acute Medical) Surgical History: *hysterectomy. *pacemaker. *hernia repair. *brain tumor removed Family History: Family History Other COPD (chronic obstructive pulmonary disease) Cancer Diabetes - Social History Smoking status: Current every day smoker Substance use type: does not use Alcohol intake frequency: does not drink Current residence: Apartment/Private Home Social history: PCP Roxy Figueroa APRN at [facility] Medications Home Medications Medication Instructions Recorded Confirmed Type Venlafaxine HCl [Effexor Xr] 150 mg PO WB #0 01/21/16 02/20/17 History raNITIdine HCl [Ranitidine HCl] 300 mg PO DAILY #0 04/23/17 10/18/17 History ClonazePAM [Klonopin] 1 mg PO TID 02/03/17 02/20/17 History Allergies Allergy/AdvReac Type Severity Reaction Status Date / Time fluoxetine Allergy Unknown Verified 02/03/17 17:18 sulfamethoxazole Allergy Unknown Verified 02/03/17 17:18 trimethoprim Allergy Unknown Verified 02/03/17 17:18 Exam Vital Signs: Temperature 97.2 F 02/21/17 08:00 Pulse Rate 78 02/21/17 08:00 Respiratory Rate 16 02/21/17 08:00 Blood Pressure 113/78 02/21/17 08:00 Pulse Oximetry 98 02/21/17 08:00 Height/Weight/BMI: Height 1.73 m Weight 76.9 kg Body Mass Index 25.7 - Constitutional Present: no acute distress, well nourished, well developed - Routine HEENT Exam Eye: Present: EOMI ENT: Present: mucous membranes moist, dentition normal - Routine Respiratory Exam Present: CTA bilaterally. Absent: wheezes - Routine Cardiovascular Exam Present: RRR, S1, S2. Absent: murmur - Routine Abdominal Exam Present: soft, normoactive bowel sounds, non distended. Absent: tenderness - Routine Extremities Exam Present: full ROM, normal capillary refill - Routine Back/Spine/Pelvis Exam Back/Spine: Present: full ROM - Routine Skin Exam Present: intact, dry, warm - Routine Neurological Exam Present: alert, oriented X3, CN II-XII intact - Routine Psychiatric Exam Comments: Flat, depressed affect Results - Labs CBC & Chem 7: 02/20/17 15:13 02/20/17 15:13 Assessment and Plan (1) Depression Current visit: Yes Status: Acute (2) MDD (major depressive disorder), recurrent severe, without psychosis Current visit: Yes Status: Acute (3) PTSD (post-traumatic stress disorder) Current visit: Yes Status: Acute Assessment and Plan: Impression Major depressive disorder Anxiety PTSD COPD GERD History of migraines. History of CVA. History of brain tumor Plan Agree with admission to [facility] unit under the care of Dr. Victor for further psychiatric evaluation and treatment. Patient was medically screened and examined in the emergency room including laboratory studies and CT scan of the head. This did not reveal any acute intracranial abnormality, However, does reveal a prior left occipital craniotomy. Nicotine patch and encouragement of tobacco cessation. Encourage patient to participate in unit activities and provide a safe environment Hospital services will continue to follow patient medically manage her existing comorbidities. At time of discharge medical care will return to her primary care provider. [facility] Hospital Course Summary Disclaimer: The visit summary below is not to be considered part of the above Progress Note. Hospital Course: 02/21/17 - admission Impression Major depressive disorder Anxiety PTSD COPD GERD History of migraines. History of CVA. History of brain tumor Plan Agree with admission to [facility] unit under the care of Dr. Victor for further psychiatric evaluation and treatment. Patient was medically screened and examined in the emergency room including laboratory studies and CT scan of the head. This did not reveal any acute intracranial abnormality, However, does reveal a prior left occipital craniotomy. Nicotine patch and encouragement of tobacco cessation. Encourage patient to participate in unit activities and provide a safe environment Hospital services will continue to follow patient medically manage her existing comorbidities. At time of discharge medical care will return to her primary care provider. [facility] <Kena Hedrick - Last Filed: 02/21/17 19:31> History of Present Illness Date: 02/21/17 [facility] Patient Stated Medical History Cerebrovascular Accident Yes: 1982 Migraine Yes: HX OF Angina Yes Chronic Obstructive Pulmonary Yes Disease (COPD) Pneumonia Yes: HX Sleep Apnea Yes Gastroesophageal Reflux Yes Disease Other Yes: DILATION OF URETHRA Clotting Problems Yes: 'BLOOD CLOT IN LUNG ONE TIME' Osteoarthritis Yes Shingles Yes: HX OF Depression Yes Clinic Medical History Anxiety (Acute Medical) Brain tumor (Acute Medical) COPD (chronic obstructive pulmonary disease) (Acute Medical) Depression (Acute Medical) Migraines (Acute Medical) Pacemaker (Acute Medical) Panic attacks (Acute Medical) Family History: Family History Other COPD (chronic obstructive pulmonary disease) Cancer Diabetes Exam Vital Signs: Temperature 97.6 F 02/21/17 16:00 Pulse Rate 69 02/21/17 16:00 Respiratory Rate 22 02/21/17 16:00 Blood Pressure 102/71 02/21/17 16:00 Pulse Oximetry 96 02/21/17 16:00 Height/Weight/BMI: Height 5 ft 8 in Weight 169 lb 8.568 oz Body Mass Index 25.7 Results - Labs CBC & Chem 7: 02/20/17 15:13 02/20/17 15:13 Assessment and Plan (1) Depression Current visit: Yes Status: Acute (2) MDD (major depressive disorder), recurrent severe, without psychosis Current visit: Yes Status: Acute (3) PTSD (post-traumatic stress disorder) Current visit: Yes Status: Acute Assessment and Plan: I have independently evaluated and examined this patient. I reviewed the chart, the patient's history, and the REGISTERED SALES ASSISTANT/PA's documented findings as above. We discussed and formulated the assessment and plan as above with additions as below. The patient is a tearful but cooperative 61-year-old white female who has worship friends at the bedside at the time of my exam. She was admitted with a history of depression and anxiety for further psychiatric evaluation. At the time of my visit the patient does not have any questions, she is very tearful and quiet. In general, the patient is alert and oriented 3, cooperative with exam, and in no respiratory distress. HEENT: Head is atraumatic, normocephalic, mucous membranes moist and pink Lungs: Clear to auscultation without wheezes, crackles or rhonchi CV: Regular rate and rhythm without murmur Abdomen: Soft, nontender, bowel sounds are present, there is no guarding no rebound. Extremities: No clubbing, no cyanosis, no edema. Skin: Warm and dry no sign of rash Neuro: Patient is alert Plan: Medically stable, we'll follow as needed. Hospital Course Summary Disclaimer: The visit summary below is not to be considered part of the above Progress Note.
[2017-02-21] MEDS: LORazepam 0.5 MG TABLET PO PRN (16:56)
--- NOTE | 2017-02-21 19:32 | Neuropsych Progress Note ---
[facility] Subjective Date: 02/21/17 - Sujective/Severity of Illness Medications: Acetaminophen (Tylenol) 325 - 650 mg PO Q5H PRN PRN Reason: Discomfort Clonazepam (Klonopin) 1 mg PO TID [facility] Last Admin: 02/21/17 14:53 Dose: 1 mg Haloperidol (Haldol) 0.5 mg PO Q6H PRN PRN Reason: Extreme agitation Last Admin: 02/20/17 20:21 Dose: 0.5 mg Haloperidol Lactate (Haldol) 0.5 mg IM Q6H PRN PRN Reason: Extreme agitation Ibuprofen (Motrin) 600 mg PO Q8H PRN PRN Reason: Pain Last Admin: 02/21/17 13:38 Dose: 600 mg Lorazepam (Ativan) 0.5 mg PO Q6H PRN PRN Reason: Extreme agitation Last Admin: 02/21/17 16:56 Dose: 0.5 mg Lorazepam (Ativan Inj) 0.5 mg IM Q6H PRN PRN Reason: Extreme agitation Nicotine (Nicoderm) 14 mg TD DAILY [facility] Last Admin: 02/21/17 10:22 Dose: 14 mg Nicotine (Nicotine Patch Removal) 1 removal TD DAILY [facility] Ranitidine HCl (Zantac) 300 mg PO DAILY [facility] Last Admin: 02/21/17 10:23 Dose: 300 mg Venlafaxine HCl (Effexor Xr) 150 mg PO WB [facility] Last Admin: 02/21/17 10:23 Dose: 150 mg Venlafaxine HCl (Effexor Xr) 75 mg PO WB [facility] Last Admin: 02/21/17 10:23 Dose: 75 mg Subjective: PT seen and chart examined. Nursing reports pt had some issues with sleep last night. On face to face the pt is tearful. She states she feels anxious and depressed. She denies any S/I. She states she is having a panic attack and worries something physically is wrong. Tolerating meds Start Time: 17:15 Stop Time: 17:30 Mental Status Exam Vitals: Last Vital Signs Temp 97.6 F 02/21/17 16:00 Pulse 69 02/21/17 16:00 Resp 22 02/21/17 16:00 BP 102/71 02/21/17 16:00 Pulse Ox 96 02/21/17 16:00 Height: 1.73 m Weight: 76.9 kg - Mental Status Exam Muscle Strength/Tone: Normal Dressing: Casual Grooming: Good Attitude: Guarded Motor Activity: Retardation Eye Contact: Fair Speech: Slowed Volume: Soft Rhythm: Appropriate Rhythm Orientation: Oriented X4 Mood: Depressed, Anxious Rate of Thoughts: Delayed Thought Organization: [place] Associations: Intact Abstract Reasoning: Intact, able to abstract Computation: Intact Thought Content: Hopelessness, Helplessness, Worthlessness Perception/Psychotic: Perception Normal Language: Naming Intact Fund of Knowledge: Appropriate Memory: Grossly Intact Suicidal Ideation: Denies Homicidal Ideation: Denies Insight: Poor Judgement: Poor Impulse Control: Poor - Laboratory Result Diagrams: 02/20/17 15:13 02/20/17 15:13 Assessment and Plan (1) MDD (major depressive disorder), recurrent severe, without psychosis Current visit: Yes Status: Acute (2) PTSD (post-traumatic stress disorder) Current visit: Yes Status: Acute Hospital Course Summary Disclaimer: The visit summary below is not to be considered part of the above Progress Note. Hospital Course: 02/21/17 - admission Impression Major depressive disorder Anxiety PTSD COPD GERD History of migraines. History of CVA. History of brain tumor Plan Agree with admission to [facility] unit under the care of Dr. Victor for further psychiatric evaluation and treatment. Patient was medically screened and examined in the emergency room including laboratory studies and CT scan of the head. This did not reveal any acute intracranial abnormality, However, does reveal a prior left occipital craniotomy. Nicotine patch and encouragement of tobacco cessation. Encourage patient to participate in unit activities and provide a safe environment Hospital services will continue to follow patient medically manage her existing comorbidities. At time of discharge medical care will return to her primary care provider. [facility] 02/21/17 19:32 PT very anxious. Will increase Trazodone to 100mg at HS. Gabapentin 300mg PO TID
[2017-02-21] MEDS: TRAZODONE 100 MG TABLET PO SCH (20:10)
[2017-02-21] MEDS: GABAPENTIN 300 MG CAPSULE PO SCH (20:10)
[2017-02-22] MEDS: LORazepam 0.5 MG TABLET PO PRN ×2 (00:26→18:05)
[2017-02-22] MEDS: ClonazePAM 1 MG TABLET PO SCH ×3 (08:52→20:07)
[2017-02-22] MEDS: Venlaflaxine XR 75 MG CAPSULE (24hr) PO SCH (08:52)
[2017-02-22] MEDS: GABAPENTIN 300 MG CAPSULE PO SCH ×3 (08:52→20:08)
[2017-02-22] MEDS: NICOTINE 14 MG PATCH TD SCH (08:52)
[2017-02-22] MEDS: RANITIDINE 300 MG TABLET PO SCH (08:53)
[2017-02-22] MEDS: NICOTINE PATCH REMOVAL TD SCH (08:53)
[2017-02-22] MEDS ORDERED: INFLUENZA VAC QIV 2017-18 (Fluarix*)(>=3yo) 0.5ml IM ONE (14:55)
[2017-02-22] MEDS ORDERED: PNEUMOCOCCAL 13 VACCINE 0.5ml INJECTION IM ONE (14:55)
[2017-02-22] MEDS ORDERED: INFLUENZA VAC. INJ. ADMIN CHARGE INJ ONE (15:30)
[2017-02-22] MEDS ORDERED: PNEUMOCOCCAL VAC ADMIN CHARGE INJ ONE (15:30)
--- NOTE | 2017-02-22 18:21 | Neuropsych Progress Note ---
[facility] Subjective Date: 02/22/17 - Sujective/Severity of Illness Medications: Acetaminophen (Tylenol) 325 - 650 mg PO Q5H PRN PRN Reason: Discomfort Clonazepam (Klonopin) 1 mg PO TID [facility] Last Admin: 02/22/17 14:52 Dose: 1 mg Gabapentin (Neurontin) 300 mg PO TID [facility] Last Admin: 02/22/17 14:52 Dose: 300 mg Haloperidol (Haldol) 0.5 mg PO Q6H PRN PRN Reason: Extreme agitation Last Admin: 02/20/17 20:21 Dose: 0.5 mg Haloperidol Lactate (Haldol) 0.5 mg IM Q6H PRN PRN Reason: Extreme agitation Ibuprofen (Motrin) 600 mg PO Q8H PRN PRN Reason: Pain Last Admin: 02/21/17 13:38 Dose: 600 mg Lorazepam (Ativan) 0.5 mg PO Q6H PRN PRN Reason: Extreme agitation Last Admin: 02/22/17 18:05 Dose: 0.5 mg Lorazepam (Ativan Inj) 0.5 mg IM Q6H PRN PRN Reason: Extreme agitation Nicotine (Nicoderm) 14 mg TD DAILY [facility] Last Admin: 02/22/17 08:52 Dose: 14 mg Nicotine (Nicotine Patch Removal) 1 removal TD DAILY [facility] Last Admin: 02/22/17 08:53 Dose: 1 removal Ranitidine HCl (Zantac) 300 mg PO DAILY [facility] Last Admin: 02/22/17 08:53 Dose: 300 mg Trazodone HCl (Desyrel) 100 mg PO [facility] Last Admin: 02/21/17 20:10 Dose: 100 mg Venlafaxine HCl (Effexor Xr) 150 mg PO [facility] Last Admin: 02/22/17 08:52 Dose: 150 mg Venlafaxine HCl (Effexor Xr) 75 mg PO [facility] Last Admin: 02/22/17 08:52 Dose: 75 mg Subjective: PT seen and chart examined. Nursing reports pt continues to deal with anxiety and depression. Some issues with sleep last night. On face to face the pt states she does feel a little better. Remains anxious but feels the Gabapentin was helpful Remains depressed but denies S/I. Tolerating meds Start Time: 17:45 Stop Time: 18:00 Mental Status Exam Vitals: Last Vital Signs Temp 97.8 F 02/22/17 16:00 Pulse 86 02/22/17 16:00 Resp 16 02/22/17 16:00 BP 108/82 02/22/17 16:00 Pulse Ox 97 02/22/17 16:00 Height: 1.73 m Weight: 83.7 kg - Mental Status Exam Muscle Strength/Tone: Normal Dressing: Casual Grooming: Good Attitude: Guarded Motor Activity: Retardation Eye Contact: Fair Speech: Slowed Volume: Soft Rhythm: Appropriate Rhythm Orientation: Oriented X4 Mood: Depressed, Anxious Rate of Thoughts: Delayed Thought Organization: [place] Associations: Intact Abstract Reasoning: Intact, able to abstract Computation: Intact Thought Content: Hopelessness, Helplessness, Worthlessness Perception/Psychotic: Perception Normal Language: Naming Intact Fund of Knowledge: Appropriate Memory: Grossly Intact Suicidal Ideation: Denies Homicidal Ideation: Denies Insight: Poor Judgement: Poor Impulse Control: Poor - Laboratory Result Diagrams: 02/20/17 15:13 02/20/17 15:13 Assessment and Plan (1) MDD (major depressive disorder), recurrent severe, without psychosis Current visit: Yes Status: Acute (2) PTSD (post-traumatic stress disorder) Current visit: Yes Status: Acute Hospital Course Summary Disclaimer: The visit summary below is not to be considered part of the above Progress Note. Hospital Course: 02/21/17 - admission Impression Major depressive disorder Anxiety PTSD COPD GERD History of migraines. History of CVA. History of brain tumor Plan Agree with admission to [facility] unit under the care of Dr. Victor for further psychiatric evaluation and treatment. Patient was medically screened and examined in the emergency room including laboratory studies and CT scan of the head. This did not reveal any acute intracranial abnormality, However, does reveal a prior left occipital craniotomy. Nicotine patch and encouragement of tobacco cessation. Encourage patient to participate in unit activities and provide a safe environment Hospital services will continue to follow patient medically manage her existing comorbidities. At time of discharge medical care will return to her primary care provider. [facility], Roxy Figueroa APRN 02/21/17 19:32 PT very anxious. Will increase Trazodone to 100mg at HS. Gabapentin 300mg PO TID 02/22/17 18:21 PT improved slightly. Continue current care
[2017-02-22] MEDS: TRAZODONE 100 MG TABLET PO SCH (20:08)
[2017-02-23] MEDS: LORazepam 0.5 MG TABLET PO PRN ×2 (01:57→13:05)
[2017-02-23] MEDS: HALOPERIDOL 0.5 MG TABLET PO PRN (01:57)
[2017-02-23] MEDS: Venlaflaxine XR 75 MG CAPSULE (24hr) PO SCH (09:26)
[2017-02-23] MEDS: NICOTINE 14 MG PATCH TD SCH (09:26)
[2017-02-23] MEDS: GABAPENTIN 300 MG CAPSULE PO SCH ×3 (09:26→21:05)
[2017-02-23] MEDS: NICOTINE PATCH REMOVAL TD SCH (09:27)
[2017-02-23] MEDS: ClonazePAM 1 MG TABLET PO SCH ×3 (09:27→21:05)
[2017-02-23] MEDS: RANITIDINE 300 MG TABLET PO SCH (09:27)
--- NOTE | 2017-02-23 10:55 | Neuropsych Progress Note ---
[facility] Subjective Date: 02/23/17 - Sujective/Severity of Illness Medications: Acetaminophen (Tylenol) 325 - 650 mg PO Q5H PRN PRN Reason: Discomfort Clonazepam (Klonopin) 1 mg PO TID [facility] Last Admin: 02/23/17 09:27 Dose: 1 mg Gabapentin (Neurontin) 300 mg PO TID [facility] Last Admin: 02/23/17 09:26 Dose: 300 mg Haloperidol (Haldol) 0.5 mg PO Q6H PRN PRN Reason: Extreme agitation Last Admin: 02/23/17 01:57 Dose: 0.5 mg Haloperidol Lactate (Haldol) 0.5 mg IM Q6H PRN PRN Reason: Extreme agitation Ibuprofen (Motrin) 600 mg PO Q8H PRN PRN Reason: Pain Last Admin: 02/21/17 13:38 Dose: 600 mg Lorazepam (Ativan) 0.5 mg PO Q6H PRN PRN Reason: Extreme agitation Last Admin: 02/23/17 01:57 Dose: 0.5 mg Lorazepam (Ativan Inj) 0.5 mg IM Q6H PRN PRN Reason: Extreme agitation Nicotine (Nicoderm) 14 mg TD DAILY [facility] Last Admin: 02/23/17 09:26 Dose: 14 mg Nicotine (Nicotine Patch Removal) 1 removal TD DAILY [facility] Last Admin: 02/23/17 09:27 Dose: 1 removal Ranitidine HCl (Zantac) 300 mg PO DAILY [facility] Last Admin: 02/23/17 09:27 Dose: 300 mg Trazodone HCl (Desyrel) 100 mg PO [facility] Last Admin: 02/22/17 20:08 Dose: 100 mg Venlafaxine HCl (Effexor Xr) 150 mg PO [facility] Last Admin: 02/23/17 09:27 Dose: 150 mg Venlafaxine HCl (Effexor Xr) 75 mg PO [facility] Last Admin: 02/23/17 09:26 Dose: 75 mg Subjective: PT seen and chart examined. Nursing reports pt continues to have some anxiety and panic symptoms at times. Pt received Ativan and Haldol at 0200 last night for panic symptoms and deep breathing was not effective. On face to face the pt states she feels a little better today. Mood and anxiety slightly improved. Continues to have issues with sleep. Tolerating meds. Denies S/I Start Time: :45 Stop Time: 10:00 Mental Status Exam Vitals: Last Vital Signs Temp 97.4 F 02/23/17 08:00 Pulse 84 02/23/17 08:00 Resp 16 02/23/17 08:00 BP 108/73 02/23/17 08:00 Pulse Ox 94 02/23/17 08:00 Height: 1.73 m Weight: 83.7 kg - Mental Status Exam Muscle Strength/Tone: Normal Dressing: Casual Grooming: Good Attitude: Guarded Motor Activity: Retardation Eye Contact: Fair Speech: Slowed Volume: Soft Rhythm: Appropriate Rhythm Orientation: Oriented X4 Mood: Depressed, Anxious Rate of Thoughts: Delayed Thought Organization: [place] Associations: Intact Abstract Reasoning: Intact, able to abstract Computation: Intact Thought Content: Hopelessness, Helplessness, Worthlessness Perception/Psychotic: Perception Normal Language: Naming Intact Fund of Knowledge: Appropriate Memory: Grossly Intact Suicidal Ideation: Denies Homicidal Ideation: Denies Insight: Poor Judgement: Poor Impulse Control: Poor - Laboratory Result Diagrams: 02/20/17 15:13 02/20/17 15:13 Assessment and Plan (1) MDD (major depressive disorder), recurrent severe, without psychosis Current visit: Yes Status: Acute (2) PTSD (post-traumatic stress disorder) Current visit: Yes Status: Acute Hospital Course Summary Disclaimer: The visit summary below is not to be considered part of the above Progress Note. Hospital Course: 02/21/17 - admission Impression Major depressive disorder Anxiety PTSD COPD GERD History of migraines. History of CVA. History of brain tumor Plan Agree with admission to [facility] unit under the care of Dr. Victor for further psychiatric evaluation and treatment. Patient was medically screened and examined in the emergency room including laboratory studies and CT scan of the head. This did not reveal any acute intracranial abnormality, However, does reveal a prior left occipital craniotomy. Nicotine patch and encouragement of tobacco cessation. Encourage patient to participate in unit activities and provide a safe environment Hospital services will continue to follow patient medically manage her existing comorbidities. At time of discharge medical care will return to her primary care provider. [facility], Roxy Figueroa APRN 02/21/17 19:32 PT very anxious. Will increase Trazodone to 100mg at HS. Gabapentin 300mg PO TID 02/22/17 18:21 PT improved slightly. Continue current care 02/23/17 10:54 Continues to have anxiety and morbid thoughts at times. Seroquel XR 50mg PO QHS
[2017-02-23] MEDS: TRAZODONE 100 MG TABLET PO SCH (21:06)
[2017-02-24] MEDS: LORazepam 0.5 MG TABLET PO PRN (01:45)
[2017-02-24] MEDS: HALOPERIDOL 0.5 MG TABLET PO PRN (01:45)
[2017-02-24] MEDS: Venlaflaxine XR 75 MG CAPSULE (24hr) PO SCH (08:12)
[2017-02-24] MEDS: ClonazePAM 1 MG TABLET PO SCH ×3 (08:12→20:17)
[2017-02-24] MEDS: RANITIDINE 300 MG TABLET PO SCH (08:12)
[2017-02-24] MEDS: NICOTINE 14 MG PATCH TD SCH (08:12)
[2017-02-24] MEDS: GABAPENTIN 300 MG CAPSULE PO SCH ×3 (08:12→20:17)
[2017-02-24] MEDS: NICOTINE PATCH REMOVAL TD SCH (08:13)
--- NOTE | 2017-02-24 11:45 | Neuropsych Progress Note ---
[facility] Subjective Date: 02/24/17 - Sujective/Severity of Illness Medications: Acetaminophen (Tylenol) 325 - 650 mg PO Q5H PRN PRN Reason: Discomfort Clonazepam (Klonopin) 1 mg PO TID [facility] Last Admin: 02/24/17 08:12 Dose: 1 mg Gabapentin (Neurontin) 300 mg PO TID [facility] Last Admin: 02/24/17 08:12 Dose: 300 mg Haloperidol (Haldol) 0.5 mg PO Q6H PRN PRN Reason: Extreme agitation Last Admin: 02/24/17 01:45 Dose: 0.5 mg Haloperidol Lactate (Haldol) 0.5 mg IM Q6H PRN PRN Reason: Extreme agitation Ibuprofen (Motrin) 600 mg PO Q8H PRN PRN Reason: Pain Last Admin: 02/21/17 13:38 Dose: 600 mg Lorazepam (Ativan) 0.5 mg PO Q6H PRN PRN Reason: Extreme agitation Last Admin: 02/24/17 01:45 Dose: 0.5 mg Lorazepam (Ativan Inj) 0.5 mg IM Q6H PRN PRN Reason: Extreme agitation Nicotine (Nicoderm) 14 mg TD DAILY [facility] Last Admin: 02/24/17 08:12 Dose: 14 mg Nicotine (Nicotine Patch Removal) 1 removal TD DAILY [facility] Last Admin: 02/24/17 08:13 Dose: 1 removal Quetiapine Fumarate (Seroquel Xr) 150 mg PO 1800 [facility] Last Admin: 02/23/17 18:13 Dose: 150 mg Ranitidine HCl (Zantac) 300 mg PO DAILY [facility] Last Admin: 02/24/17 08:12 Dose: 300 mg Trazodone HCl (Desyrel) 100 mg PO HS [facility] Last Admin: 02/23/17 21:06 Dose: 100 mg Venlafaxine HCl (Effexor Xr) 150 mg PO WB [facility] Last Admin: 02/24/17 08:12 Dose: 150 mg Venlafaxine HCl (Effexor Xr) 75 mg PO WB [facility] Last Admin: 02/24/17 08:12 Dose: 75 mg Subjective: PT seen and chart examined. Nursing reports pt continues to have some anxiety and panic symptoms at times but is improved. On face to face the pt states she feels a little better. Slept better with the Seroquel. Mood is slightly improved. Continues to have panic symptoms at times but they are less intense. Denies S/I. Tolerating meds Start Time: 11:00 Stop Time: 11:15 Mental Status Exam Vitals: Last Vital Signs Temp 96.9 F 02/24/17 08:00 Pulse 74 02/24/17 08:00 Resp 16 02/24/17 08:00 BP 92/65 02/24/17 08:00 Pulse Ox 93 02/24/17 08:00 Height: 1.73 m Weight: 83.7 kg - Mental Status Exam Muscle Strength/Tone: Normal Dressing: Casual Grooming: Good Attitude: Guarded Motor Activity: Retardation Eye Contact: Fair Speech: Slowed Volume: Soft Rhythm: Appropriate Rhythm Orientation: Oriented X4 Mood: Depressed, Anxious Rate of Thoughts: Delayed Thought Organization: [place] Associations: Intact Abstract Reasoning: Intact, able to abstract Computation: Intact Thought Content: Hopelessness, Helplessness, Worthlessness Perception/Psychotic: Perception Normal Language: Naming Intact Fund of Knowledge: Appropriate Memory: Grossly Intact Suicidal Ideation: Denies Homicidal Ideation: Denies Insight: Poor Judgement: Poor Impulse Control: Poor - Laboratory Result Diagrams: 02/20/17 15:13 02/20/17 15:13 Assessment and Plan (1) MDD (major depressive disorder), recurrent severe, without psychosis Current visit: Yes Status: Acute (2) PTSD (post-traumatic stress disorder) Current visit: Yes Status: Acute Hospital Course Summary Disclaimer: The visit summary below is not to be considered part of the above Progress Note. Hospital Course: 02/21/17 - admission Impression Major depressive disorder Anxiety PTSD COPD GERD History of migraines. History of CVA. History of brain tumor Plan Agree with admission to [facility] under the care of Dr. Victor for further psychiatric evaluation and treatment. Patient was medically screened and examined in the emergency room including laboratory studies and CT scan of the head. This did not reveal any acute intracranial abnormality, However, does reveal a prior left occipital craniotomy. Nicotine patch and encouragement of tobacco cessation. Encourage patient to participate in unit activities and provide a safe environment Hospital services will continue to follow patient medically manage her existing comorbidities. At time of discharge medical care will return to her primary care provider. [facility], Roxy Figueroa APRN 02/21/17 19:32 PT very anxious. Will increase Trazodone to 100mg at HS. Gabapentin 300mg PO TID 02/22/17 18:21 PT improved slightly. Continue current care 02/23/17 10:54 Continues to have anxiety and morbid thoughts at times. Seroquel XR 150mg PO QHS 02/24/17 11:44 Continues to have panic symptoms at times but improved. Continue current care
[2017-02-24] MEDS: IBUPROFEN 600 MG TABLET PO PRN (15:24)
[2017-02-24] MEDS: TRAZODONE 100 MG TABLET PO SCH (20:17)
[2017-02-25] MEDS: HALOPERIDOL 0.5 MG TABLET PO PRN (04:28)
[2017-02-25] MEDS: RANITIDINE 300 MG TABLET PO SCH (08:35)
[2017-02-25] MEDS: NICOTINE 14 MG PATCH TD SCH (08:35)
[2017-02-25] MEDS: Venlaflaxine XR 75 MG CAPSULE (24hr) PO SCH (08:35)
[2017-02-25] MEDS: GABAPENTIN 300 MG CAPSULE PO SCH ×2 (08:35→15:00)
[2017-02-25] MEDS: NICOTINE PATCH REMOVAL TD SCH (08:36)
[2017-02-25] MEDS: ClonazePAM 1 MG TABLET PO SCH ×3 (09:11→20:09)
[2017-02-25] MEDS ORDERED: GABAPENTIN 300 MG CAPSULE PO SCH (18:56)
--- NOTE | 2017-02-25 18:56 | Neuropsych Progress Note ---
[facility] Subjective Date: 02/25/17 - Sujective/Severity of Illness Medications: Acetaminophen (Tylenol) 325 - 650 mg PO Q5H PRN PRN Reason: Discomfort Clonazepam (Klonopin) 1 mg PO TID [facility] Last Admin: 02/25/17 15:00 Dose: 1 mg Gabapentin (Neurontin) 300 mg PO TID [facility] Last Admin: 02/25/17 15:00 Dose: 300 mg Haloperidol (Haldol) 0.5 mg PO Q6H PRN PRN Reason: Extreme agitation Last Admin: 02/25/17 04:28 Dose: 0.5 mg Haloperidol Lactate (Haldol) 0.5 mg IM Q6H PRN PRN Reason: Extreme agitation Ibuprofen (Motrin) 600 mg PO Q8H PRN PRN Reason: Pain Last Admin: 02/24/17 15:24 Dose: 600 mg Lorazepam (Ativan) 0.5 mg PO Q6H PRN PRN Reason: Extreme agitation Last Admin: 02/24/17 01:45 Dose: 0.5 mg Lorazepam (Ativan Inj) 0.5 mg IM Q6H PRN PRN Reason: Extreme agitation Nicotine (Nicoderm) 14 mg TD DAILY [facility] Last Admin: 02/25/17 08:35 Dose: 14 mg Nicotine (Nicotine Patch Removal) 1 removal TD DAILY [facility] Last Admin: 02/25/17 08:36 Dose: 1 removal Quetiapine Fumarate (Seroquel Xr) 150 mg PO 1800 [facility] Last Admin: 02/25/17 17:14 Dose: 150 mg Ranitidine HCl (Zantac) 300 mg PO DAILY [facility] Last Admin: 02/25/17 08:35 Dose: 300 mg Trazodone HCl (Desyrel) 100 mg PO HS [facility] Last Admin: 02/24/17 20:17 Dose: 100 mg Venlafaxine HCl (Effexor Xr) 150 mg PO WB [facility] Last Admin: 02/25/17 08:35 Dose: 150 mg Venlafaxine HCl (Effexor Xr) 75 mg PO WB [facility] Last Admin: 02/25/17 08:35 Dose: 75 mg Subjective: PT seen and chart examined. Nursing reports pt did well today and anxiety was well controlled but when this data analyst report writer came on the unit the pt stated she was anxious and requested an Ativan. She states she is sleeping better and feels her mood is improving but feels her anxiety is the biggest issue. Denies S/I but does not feel safe for D/C. Tolerating meds Start Time: 17:45 Stop Time: 18:00 Mental Status Exam Vitals: Last Vital Signs Temp 97.9 F 02/25/17 16:00 Pulse 72 02/25/17 16:00 Resp 16 02/25/17 16:00 BP 106/66 02/25/17 16:00 Pulse Ox 95 02/25/17 16:00 Height: 1.73 m Weight: 84.7 kg - Mental Status Exam Muscle Strength/Tone: Normal Dressing: Casual Grooming: Good Attitude: Guarded Motor Activity: Retardation Eye Contact: Fair Speech: Slowed Volume: Soft Rhythm: Appropriate Rhythm Orientation: Oriented X4 Mood: Depressed, Anxious Rate of Thoughts: Delayed Thought Organization: [place] Associations: Intact Abstract Reasoning: Intact, able to abstract Computation: Intact Thought Content: Hopelessness, Helplessness, Worthlessness Perception/Psychotic: Perception Normal Language: Naming Intact Fund of Knowledge: Appropriate Memory: Grossly Intact Suicidal Ideation: Denies Homicidal Ideation: Denies Insight: Poor Judgement: Poor Impulse Control: Poor - Laboratory Result Diagrams: 02/20/17 15:13 02/20/17 15:13 Assessment and Plan (1) MDD (major depressive disorder), recurrent severe, without psychosis Current visit: Yes Status: Acute (2) PTSD (post-traumatic stress disorder) Current visit: Yes Status: Acute Hospital Course Summary Disclaimer: The visit summary below is not to be considered part of the above Progress Note. Hospital Course: 02/21/17 - admission Impression Major depressive disorder Anxiety PTSD COPD GERD History of migraines. History of CVA. History of brain tumor Plan Agree with admission to [facility] under the care of Dr. Victor for further psychiatric evaluation and treatment. Patient was medically screened and examined in the emergency room including laboratory studies and CT scan of the head. This did not reveal any acute intracranial abnormality, However, does reveal a prior left occipital craniotomy. Nicotine patch and encouragement of tobacco cessation. Encourage patient to participate in unit activities and provide a safe environment Hospital services will continue to follow patient medically manage her existing comorbidities. At time of discharge medical care will return to her primary care provider. [facility], Roxy Figueroa APRN 02/21/17 19:32 PT very anxious. Will increase Trazodone to 100mg at HS. Gabapentin 300mg PO TID 02/22/17 18:21 PT improved slightly. Continue current care 02/23/17 10:54 Continues to have anxiety and morbid thoughts at times. Seroquel XR 150mg PO QHS 02/24/17 11:44 Continues to have panic symptoms at times but improved. Continue current care 02/25/17 18:56 Anxious today and some morbid thoughts. Increase Gabapentin to 600mg PO TID
[2017-02-25] MEDS: TRAZODONE 100 MG TABLET PO SCH (20:09)
[2017-02-26] MEDS: NICOTINE PATCH REMOVAL TD SCH (08:26)
[2017-02-26] MEDS: NICOTINE 14 MG PATCH TD SCH (08:26)
[2017-02-26] MEDS: Venlaflaxine XR 75 MG CAPSULE (24hr) PO SCH (08:26)
[2017-02-26] MEDS: ClonazePAM 1 MG TABLET PO SCH ×3 (08:27→19:50)
[2017-02-26] MEDS: RANITIDINE 300 MG TABLET PO SCH (08:27)
[2017-02-26] MEDS: GABAPENTIN 600 MG TABLET PO SCH ×3 (08:27→19:50)
--- NOTE | 2017-02-26 10:46 | Progress Note ---
- Date 02/26/17 Subjective: Susie was just waking up and is complaining of frequent sweating and requests to have her estrogen and testosterone levels checked. She's felt this way ever since her hysterectomy. She also reports feeling lightheaded, which she believes started just before coming in to [facility]. She's not sure if her BP usually runs low or not. No chest pain or difficulty breathing. 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 No abdominal pain or GI complaints. Objective Vital signs: Temperature 97.0 F 02/26/17 08:00 Pulse Rate 74 02/26/17 08:00 Respiratory Rate 20 02/26/17 08:00 Blood Pressure 113/74 02/26/17 08:00 Pulse Oximetry 95 02/26/17 08:00 Height/Weight/BMI: Height 1.73 m Weight 84.7 kg Body Mass Index 25.7 - Constitutional Present: no acute distress, well nourished, well developed, obese - Routine HEENT Exam Eye: Absent: conjunctival icterus, scleral injection - Routine Respiratory Exam Present: CTA bilaterally - Routine Cardiovascular Exam Present: RRR, S1, S2 - Routine Abdominal Exam Present: soft, normoactive bowel sounds, non distended, non tender - Routine Extremities Exam Present: no edema - Routine Skin Exam Present: intact, dry, warm - Routine Neurological Exam Present: alert, oriented X3 - Routine Psychiatric Exam Present: normal affect, cooperative Results - Labs CBC & Chem 7: 02/26/17 10:05 02/26/17 10:05 Assessment and Plan (1) Depression Current visit: Yes Status: Acute (2) MDD (major depressive disorder), recurrent severe, without psychosis Current visit: Yes Status: Acute (3) PTSD (post-traumatic stress disorder) Current visit: Yes Status: Acute Assessment and Plan: ASSESSMENT Major depressive disorder Anxiety PTSD COPD GERD History of migraines. History of CVA. History of brain tumor PLAN Lightheadedness with occasional low-normal to low BP - CBC and BMP repeated - unremarkable. TSH was normal at 1.66. Advised pt to f/u with PCP regarding her concern about estrogen/testosterone levels. BP improved this am. Contacted [facility] to inquire about baseline BP - the last time she was seen in the clinic was Mar, 2016 and at that time it was 130/80 Dr. Victor's notes reviewed: multiple medication changes/additions over the last several days. Hospital Course Summary Disclaimer: The visit summary below is not to be considered part of the above Progress Note. Hospital Course: 02/21/17 - admission Impression Major depressive disorder Anxiety PTSD COPD GERD History of migraines. History of CVA. History of brain tumor Plan Agree with admission to [facility] under the care of Dr. Victor for further psychiatric evaluation and treatment. Patient was medically screened and examined in the emergency room including laboratory studies and CT scan of the head. This did not reveal any acute intracranial abnormality, However, does reveal a prior left occipital craniotomy. Nicotine patch and encouragement of tobacco cessation. Encourage patient to participate in unit activities and provide a safe environment Hospital services will continue to follow patient medically manage her existing comorbidities. At time of discharge medical care will return to her primary care provider. [facility], Roxy [place] FAGAN 02/21/17 19:32 PT very anxious. Will increase Trazodone to 100mg at HS. Gabapentin 300mg PO TID 02/22/17 18:21 PT improved slightly. Continue current care 02/23/17 10:54 Continues to have anxiety and morbid thoughts at times. Seroquel XR 150mg PO QHS 02/24/17 11:44 Continues to have panic symptoms at times but improved. Continue current care 02/25/17 18:56 Anxious today and some morbid thoughts. Increase Gabapentin to 600mg PO TID 02/26/17 Lightheadedness with occasional low-normal to low BP - CBC and BMP repeated - unremarkable. TSH was normal at 1.66. Advised pt to f/u with PCP regarding her concern about estrogen/testosterone levels. BP improved this am. Contacted to inquire about baseline BP - the last time she was seen in the clinic was Mar, 2016 and at that time it was 130/80
[2017-02-26] MEDS: LORazepam 0.5 MG TABLET PO PRN (15:51)
--- NOTE | 2017-02-26 18:55 | Neuropsych Progress Note ---
[facility] Subjective Date: 02/26/17 - Sujective/Severity of Illness Medications: Acetaminophen (Tylenol) 325 - 650 mg PO Q5H PRN PRN Reason: Discomfort Clonazepam (Klonopin) 1 mg PO TID [facility] Last Admin: 02/26/17 14:40 Dose: 1 mg Gabapentin (Neurontin) 600 mg PO TID [facility] Last Admin: 02/26/17 14:40 Dose: 600 mg Haloperidol (Haldol) 0.5 mg PO Q6H PRN PRN Reason: Extreme agitation Last Admin: 02/25/17 04:28 Dose: 0.5 mg Haloperidol Lactate (Haldol) 0.5 mg IM Q6H PRN PRN Reason: Extreme agitation Ibuprofen (Motrin) 600 mg PO Q8H PRN PRN Reason: Pain Last Admin: 02/24/17 15:24 Dose: 600 mg Lorazepam (Ativan) 0.5 mg PO Q6H PRN PRN Reason: Extreme agitation Last Admin: 02/26/17 15:51 Dose: 0.5 mg Lorazepam (Ativan Inj) 0.5 mg IM Q6H PRN PRN Reason: Extreme agitation Nicotine (Nicoderm) 14 mg TD DAILY [facility] Last Admin: 02/26/17 08:26 Dose: 14 mg Nicotine (Nicotine Patch Removal) 1 removal TD DAILY [facility] Last Admin: 02/26/17 08:26 Dose: 1 removal Quetiapine Fumarate (Seroquel Xr) 300 mg PO 1800 [facility] Ranitidine HCl (Zantac) 300 mg PO DAILY [facility] Last Admin: 02/26/17 08:27 Dose: 300 mg Trazodone HCl (Desyrel) 100 mg PO HS [facility] Last Admin: 02/25/17 20:09 Dose: 100 mg Venlafaxine HCl (Effexor Xr) 150 mg PO WB [facility] Last Admin: 02/26/17 08:26 Dose: 150 mg Venlafaxine HCl (Effexor Xr) 75 mg PO WB [facility] Last Admin: 02/26/17 08:26 Dose: 75 mg Subjective: PT seen and chart examined. Nursing did well today but had some anxiety in the afternoon. On face to face the pt states she is currently dealing with anxiety. She states she had some issues falling asleep. She remains depressed but feels her mood has improved. Denies S/I. Tolerating meds Start Time: 18:00 Stop Time: 18:15 Mental Status Exam Vitals: Last Vital Signs Temp 98.0 F 02/26/17 16:00 Pulse 79 02/26/17 16:00 Resp 18 02/26/17 16:00 BP 114/76 02/26/17 16:00 Pulse Ox 96 02/26/17 16:00 Height: 1.73 m Weight: 85.9 kg - Mental Status Exam Muscle Strength/Tone: Normal Dressing: Casual Grooming: Good Attitude: Guarded Motor Activity: Retardation Eye Contact: Fair Speech: Slowed Volume: Soft Rhythm: Appropriate Rhythm Orientation: Oriented X4 Mood: Depressed, Anxious Rate of Thoughts: Delayed Thought Organization: [place] Associations: Intact Abstract Reasoning: Intact, able to abstract Computation: Intact Thought Content: Hopelessness, Helplessness, Worthlessness Perception/Psychotic: Perception Normal Language: Naming Intact Fund of Knowledge: Appropriate Memory: Grossly Intact Suicidal Ideation: Denies Homicidal Ideation: Denies Insight: Poor Judgement: Poor Impulse Control: Poor - Laboratory Result Diagrams: 02/26/17 10:05 02/26/17 10:05 Laboratory Results - last 24 hr 02/26/17 02/26/17 10:05 10:05 WBC 6.3 RBC 4.33 Hgb 13.3 Hct 40.4 MCV 93.3 MCH 30.7 MCHC 32.9 RDW Std Deviation 43.6 Plt Count 253 MPV 9.4 Immature Gran % (Auto) 0.2 Neut % (Auto) 47.8 Lymph % (Auto) 38.9 Dale % (Auto) 7.0 Eos % (Auto) 5.8 H Baso % (Auto) 0.3 Neut # (Auto) 3.0 Lymph # (Auto) 2.4 [place] # (Auto) 0.4 Eos # (Auto) 0.4 Baso # (Auto) 0.0 Abs Immat Gran (auto) 0.01 Turbidity < 20 Sodium 143 Potassium 4.4 Chloride 106 Carbon Dioxide 28 Anion Gap 9 BUN 15.0 Creatinine 0.9 GFR Calculation 64 BUN/Creatinine Ratio 17 Glucose 131 H Calculated Osmolality 278 Calcium 9.4 Icterus Index < 2 TSH 1.66 Specimen Hemolysis < 15 Assessment and Plan (1) MDD (major depressive disorder), recurrent severe, without psychosis Current visit: Yes Status: Acute (2) PTSD (post-traumatic stress disorder) Current visit: Yes Status: Acute Hospital Course Summary Disclaimer: The visit summary below is not to be considered part of the above Progress Note. Hospital Course: 02/21/17 - admission Impression Major depressive disorder Anxiety PTSD COPD GERD History of migraines. History of CVA. History of brain tumor Plan Agree with admission to [facility] under the care of Dr. Victor for further psychiatric evaluation and treatment. Patient was medically screened and examined in the emergency room including laboratory studies and CT scan of the head. This did not reveal any acute intracranial abnormality, However, does reveal a prior left occipital craniotomy. Nicotine patch and encouragement of tobacco cessation. Encourage patient to participate in unit activities and provide a safe environment Hospital services will continue to follow patient medically manage her existing comorbidities. At time of discharge medical care will return to her primary care provider. [facility], Roxy Figueroa APRN 02/21/17 19:32 PT very anxious. Will increase Trazodone to 100mg at HS. Gabapentin 300mg PO TID 02/22/17 18:21 PT improved slightly. Continue current care 02/23/17 10:54 Continues to have anxiety and morbid thoughts at times. Seroquel XR 150mg PO QHS 02/24/17 11:44 Continues to have panic symptoms at times but improved. Continue current care 02/25/17 18:56 Anxious today and some morbid thoughts. Increase Gabapentin to 600mg PO TID 02/26/17 Lightheadedness with occasional low-normal to low BP - CBC and BMP repeated - unremarkable. TSH was normal at 1.66. Advised pt to f/u with PCP regarding her concern about estrogen/testosterone levels. BP improved this am. Contacted to inquire about baseline BP - the last time she was seen in the clinic was Mar, 2016 and at that time it was 130/80 02/26/17 18:55 Remains anxious. Increase Seroquel XR to 300mg at HS
[2017-02-26] MEDS: TRAZODONE 100 MG TABLET PO SCH (19:51)
[2017-02-26] MEDS: IBUPROFEN 600 MG TABLET PO PRN (19:52)
[2017-02-27] MEDS: RANITIDINE 300 MG TABLET PO SCH (08:29)
[2017-02-27] MEDS: Venlaflaxine XR 75 MG CAPSULE (24hr) PO SCH (08:29)
[2017-02-27] MEDS: NICOTINE 14 MG PATCH TD SCH (08:30)
[2017-02-27] MEDS: NICOTINE PATCH REMOVAL TD SCH (08:32)
[2017-02-27] MEDS: GABAPENTIN 600 MG TABLET PO SCH ×4 (08:33→20:28)
[2017-02-27] MEDS: TRAZODONE 100 MG TABLET PO SCH ×2 (08:34→20:27)
[2017-02-27] MEDS: ClonazePAM 1 MG TABLET PO SCH ×4 (08:34→20:27)
[2017-02-27] MEDS: LORazepam 0.5 MG TABLET PO PRN (17:04)
--- NOTE | 2017-02-27 18:04 | Neuropsych Progress Note ---
[facility] Subjective Date: 02/27/17 - Sujective/Severity of Illness Medications: Acetaminophen (Tylenol) 325 - 650 mg PO Q5H PRN PRN Reason: Discomfort Clonazepam (Klonopin) 1 mg PO TID [facility] Last Admin: 02/27/17 14:00 Dose: 1 mg Gabapentin (Neurontin) 600 mg PO TID [facility] Last Admin: 02/27/17 14:00 Dose: 600 mg Haloperidol (Haldol) 0.5 mg PO Q6H PRN PRN Reason: Extreme agitation Last Admin: 02/25/17 04:28 Dose: 0.5 mg Haloperidol Lactate (Haldol) 0.5 mg IM Q6H PRN PRN Reason: Extreme agitation Ibuprofen (Motrin) 600 mg PO Q8H PRN PRN Reason: Pain Last Admin: 02/26/17 19:52 Dose: 600 mg Lorazepam (Ativan) 0.5 mg PO Q6H PRN PRN Reason: Extreme agitation Last Admin: 02/27/17 17:04 Dose: 0.5 mg Lorazepam (Ativan Inj) 0.5 mg IM Q6H PRN PRN Reason: Extreme agitation Nicotine (Nicoderm) 14 mg TD DAILY [facility] Last Admin: 02/27/17 08:30 Dose: 14 mg Nicotine (Nicotine Patch Removal) 1 removal TD DAILY [facility] Last Admin: 02/27/17 08:32 Dose: 1 removal Quetiapine Fumarate (Seroquel Xr) 300 mg PO 1800 [facility] Ranitidine HCl (Zantac) 300 mg PO DAILY [facility] Last Admin: 02/27/17 08:29 Dose: 300 mg Trazodone HCl (Desyrel) 100 mg PO HS [facility] Last Admin: 02/27/17 08:34 Dose: Not Given Venlafaxine HCl (Effexor Xr) 150 mg PO [facility] Last Admin: 02/27/17 08:29 Dose: 150 mg Venlafaxine HCl (Effexor Xr) 75 mg PO [facility] Last Admin: 02/27/17 08:29 Dose: 75 mg Subjective: PT seen and chart examined. Nursing reports pt was tearful and anxious this afternoon while thinking about son. Pt states she remains anxious and reports poor sleep at night and sedation during the day which she relates to the Seroquel. She reports her mood is improved and her anxiety is her biggest issue. She denies S/I but feels hopeless at times. Start Time: 18:00 Stop Time: 18:15 Mental Status Exam Vitals: Last Vital Signs Temp 97.4 F 02/27/17 16:00 Pulse 90 02/27/17 16:00 Resp 18 02/27/17 16:00 BP 107/67 02/27/17 16:00 Pulse Ox 99 02/27/17 16:00 Height: 1.73 m Weight: 85.9 kg - Mental Status Exam Muscle Strength/Tone: Normal Dressing: Casual Grooming: Good Attitude: Guarded Motor Activity: Retardation Eye Contact: Fair Speech: Slowed Volume: Soft Rhythm: Appropriate Rhythm Orientation: Oriented X4 Mood: Depressed, Anxious Rate of Thoughts: Delayed Thought Organization: [place] Associations: Intact Abstract Reasoning: Intact, able to abstract Computation: Intact Thought Content: Hopelessness, Helplessness, Worthlessness Perception/Psychotic: Perception Normal Language: Naming Intact Fund of Knowledge: Appropriate Memory: Grossly Intact Suicidal Ideation: Denies Homicidal Ideation: Denies Insight: Poor Judgement: Poor Impulse Control: Poor - Laboratory Result Diagrams: 02/26/17 10:05 02/26/17 10:05 Assessment and Plan (1) MDD (major depressive disorder), recurrent severe, without psychosis Current visit: Yes Status: Acute (2) PTSD (post-traumatic stress disorder) Current visit: Yes Status: Acute Hospital Course Summary Disclaimer: The visit summary below is not to be considered part of the above Progress Note. Hospital Course: 02/21/17 - admission Impression Major depressive disorder Anxiety PTSD COPD GERD History of migraines. History of CVA. History of brain tumor Plan Agree with admission to [facility] under the care of Dr. Victor for further psychiatric evaluation and treatment. Patient was medically screened and examined in the emergency room including laboratory studies and CT scan of the head. This did not reveal any acute intracranial abnormality, However, does reveal a prior left occipital craniotomy. Nicotine patch and encouragement of tobacco cessation. Encourage patient to participate in unit activities and provide a safe environment Hospital services will continue to follow patient medically manage her existing comorbidities. At time of discharge medical care will return to her primary care provider. [facility], Roxy Figueroa APRN 02/21/17 19:32 PT very anxious. Will increase Trazodone to 100mg at HS. Gabapentin 300mg PO TID 02/22/17 18:21 PT improved slightly. Continue current care 02/23/17 10:54 Continues to have anxiety and morbid thoughts at times. Seroquel XR 150mg PO QHS 02/24/17 11:44 Continues to have panic symptoms at times but improved. Continue current care 02/25/17 18:56 Anxious today and some morbid thoughts. Increase Gabapentin to 600mg PO TID 02/26/17 Lightheadedness with occasional low-normal to low BP - CBC and BMP repeated - unremarkable. TSH was normal at 1.66. Advised pt to f/u with PCP regarding her concern about estrogen/testosterone levels. BP improved this am. Contacted to inquire about baseline BP - the last time she was seen in the clinic was Mar, 2016 and at that time it was 130/80 02/26/17 18:55 Remains anxious. Increase Seroquel XR to 300mg at HS 02/27/17 18:04 Remains anxious. Continue current care
[2017-02-28] MEDS: LORazepam 0.5 MG TABLET PO PRN (01:56)
[2017-02-28] MEDS: NICOTINE 14 MG PATCH TD SCH (08:50)
[2017-02-28] MEDS: GABAPENTIN 600 MG TABLET PO SCH ×3 (08:51→20:08)
[2017-02-28] MEDS: RANITIDINE 300 MG TABLET PO SCH (08:51)
[2017-02-28] MEDS: ClonazePAM 1 MG TABLET PO SCH ×4 (08:51→20:08)
[2017-02-28] MEDS: Venlaflaxine XR 75 MG CAPSULE (24hr) PO SCH (08:51)
[2017-02-28] MEDS: NICOTINE PATCH REMOVAL TD SCH (08:51)
[2017-02-28] MEDS: IBUPROFEN 600 MG TABLET PO PRN (18:10)
--- NOTE | 2017-02-28 19:31 | Neuropsych Progress Note ---
[facility] Subjective Date: 02/28/17 - Sujective/Severity of Illness Medications: Acetaminophen (Tylenol) 325 - 650 mg PO Q5H PRN PRN Reason: Discomfort Clonazepam (Klonopin) 1 mg PO TID [facility] Last Admin: 02/28/17 14:31 Dose: Not Given Gabapentin (Neurontin) 600 mg PO TID [facility] Last Admin: 02/28/17 14:31 Dose: 600 mg Haloperidol (Haldol) 0.5 mg PO Q6H PRN PRN Reason: Extreme agitation Last Admin: 02/25/17 04:28 Dose: 0.5 mg Haloperidol Lactate (Haldol) 0.5 mg IM Q6H PRN PRN Reason: Extreme agitation Ibuprofen (Motrin) 600 mg PO Q8H PRN PRN Reason: Pain Last Admin: 02/26/17 19:52 Dose: 600 mg Lorazepam (Ativan) 0.5 mg PO Q6H PRN PRN Reason: Extreme agitation Last Admin: 02/28/17 01:56 Dose: 0.5 mg Lorazepam (Ativan Inj) 0.5 mg IM Q6H PRN PRN Reason: Extreme agitation Nicotine (Nicoderm) 14 mg TD DAILY [facility] Last Admin: 02/28/17 08:50 Dose: 14 mg Nicotine (Nicotine Patch Removal) 1 removal TD DAILY [facility] Last Admin: 02/28/17 08:51 Dose: 1 removal Quetiapine Fumarate (Seroquel Xr) 300 mg PO 1800 [facility] Last Admin: 02/28/17 18:47 Dose: Not Given Ranitidine HCl (Zantac) 300 mg PO DAILY [facility] Last Admin: 02/28/17 08:51 Dose: 300 mg Trazodone HCl (Desyrel) 100 mg PO HS [facility] Last Admin: 02/27/17 20:27 Dose: 100 mg Venlafaxine HCl (Effexor Xr) 150 mg PO WB [facility] Last Admin: 02/28/17 08:51 Dose: 150 mg Venlafaxine HCl (Effexor Xr) 75 mg PO WB [facility] Last Admin: 02/28/17 08:51 Dose: 75 mg Subjective: PT seen and chart examined. Nursing reports pt was tearful and anxious this afternoon and has isolated. On face to face the pt states the Seroquel is to sedated and she feels groggy all day. She reports she remains depressed and anxious. She denies any S/I. Start Time: 17:45 Stop Time: 18:00 Mental Status Exam Vitals: Last Vital Signs Temp 97.5 F 02/28/17 08:00 Pulse 80 02/28/17 08:00 Resp 18 02/28/17 08:00 BP 98/73 02/28/17 08:00 Pulse Ox 95 02/28/17 08:00 Height: 1.73 m Weight: 86 kg - Mental Status Exam Muscle Strength/Tone: Normal Dressing: Casual Grooming: Good Attitude: Guarded Motor Activity: Retardation Eye Contact: Fair Speech: Slowed Volume: Soft Rhythm: Appropriate Rhythm Orientation: Oriented X4 Mood: Depressed, Anxious Rate of Thoughts: Delayed Thought Organization: [place] Associations: Intact Abstract Reasoning: Intact, able to abstract Computation: Intact Thought Content: Hopelessness, Helplessness, Worthlessness Perception/Psychotic: Perception Normal Language: Naming Intact Fund of Knowledge: Appropriate Memory: Grossly Intact Suicidal Ideation: Denies Homicidal Ideation: Denies Insight: Poor Judgement: Poor Impulse Control: Poor - Laboratory Result Diagrams: 02/26/17 10:05 02/26/17 10:05 Laboratory Results - last 24 hr 02/28/17 07:40 Triglycerides 422 H Cholesterol 178 LDL Cholesterol, Calc 69.6 VLDL Cholesterol 84.4 H HDL Cholesterol 24 L Cholesterol/HDL Ratio 7.4 H Assessment and Plan (1) MDD (major depressive disorder), recurrent severe, without psychosis Current visit: Yes Status: Acute (2) PTSD (post-traumatic stress disorder) Current visit: Yes Status: Acute Hospital Course Summary Disclaimer: The visit summary below is not to be considered part of the above Progress Note. Hospital Course: 02/21/17 - admission Impression Major depressive disorder Anxiety PTSD COPD GERD History of migraines. History of CVA. History of brain tumor Plan Agree with admission to [facility] under the care of Dr. Victor for further psychiatric evaluation and treatment. Patient was medically screened and examined in the emergency room including laboratory studies and CT scan of the head. This did not reveal any acute intracranial abnormality, However, does reveal a prior left occipital craniotomy. Nicotine patch and encouragement of tobacco cessation. Encourage patient to participate in unit activities and provide a safe environment Hospital services will continue to follow patient medically manage her existing comorbidities. At time of discharge medical care will return to her primary care provider. [facility], Roxy [place] FAGAN 02/21/17 19:32 PT very anxious. Will increase Trazodone to 100mg at HS. Gabapentin 300mg PO TID 02/22/17 18:21 PT improved slightly. Continue current care 02/23/17 10:54 Continues to have anxiety and morbid thoughts at times. Seroquel XR 150mg PO QHS 02/24/17 11:44 Continues to have panic symptoms at times but improved. Continue current care 02/25/17 18:56 Anxious today and some morbid thoughts. Increase Gabapentin to 600mg PO TID 02/26/17 Lightheadedness with occasional low-normal to low BP - CBC and BMP repeated - unremarkable. TSH was normal at 1.66. Advised pt to f/u with PCP regarding her concern about estrogen/testosterone levels. BP improved this am. Contacted to inquire about baseline BP - the last time she was seen in the clinic was Mar, 2016 and at that time it was 130/80 02/26/17 18:55 Remains anxious. Increase Seroquel XR to 300mg at HS 02/27/17 18:04 Remains anxious. Continue current care 02/28/17 19:30 Pt remains depressed and anxious. D/C Seroquel
[2017-02-28] MEDS: TRAZODONE 100 MG TABLET PO SCH (20:08)
[2017-03-01] MEDS: NICOTINE 14 MG PATCH TD SCH (08:12)
[2017-03-01] MEDS: Venlaflaxine XR 75 MG CAPSULE (24hr) PO SCH (08:12)
[2017-03-01] MEDS: ClonazePAM 1 MG TABLET PO SCH ×3 (08:12→20:10)
[2017-03-01] MEDS: NICOTINE PATCH REMOVAL TD SCH (08:13)
[2017-03-01] MEDS: GABAPENTIN 600 MG TABLET PO SCH ×3 (08:13→20:09)
[2017-03-01] MEDS: RANITIDINE 300 MG TABLET PO SCH (08:13)
--- NOTE | 2017-03-01 15:56 | Progress Note ---
- Date 03/01/17 Subjective: Susie feels much better since Dr. Victor has discontinued Seroquel - this was making her very fatigued. She otherwise is doing well and doesn't have any acute c/o. She's a bit tired now and would like to take a nap. She inquires about when she might be able to go home. Objective Vital signs: Temperature 97.2 F 03/01/17 08:00 Pulse Rate 77 03/01/17 08:00 Respiratory Rate 16 03/01/17 08:00 Blood Pressure 109/73 03/01/17 08:00 Pulse Oximetry 93 03/01/17 08:00 Height/Weight/BMI: Height 1.73 m Weight 86 kg Body Mass Index 25.7 - Constitutional Present: no acute distress, well nourished, well developed, morbidly obese - Routine HEENT Exam ENT: Present: oropharynx clear - Routine Respiratory Exam Present: CTA bilaterally - Routine Cardiovascular Exam Present: RRR, S1, S2 - Routine Abdominal Exam Present: soft, normoactive bowel sounds, non tender - Routine Extremities Exam Present: no edema - Routine Skin Exam Present: intact, dry, warm - Routine Neurological Exam Present: alert, oriented X3 - Routine Psychiatric Exam Present: normal affect, normal thought process, cooperative Results - Labs CBC & Chem 7: 02/26/17 10:05 02/26/17 10:05 Assessment and Plan (1) Depression Current visit: Yes Status: Acute (2) MDD (major depressive disorder), recurrent severe, without psychosis Current visit: Yes Status: Acute (3) PTSD (post-traumatic stress disorder) Current visit: Yes Status: Acute Assessment and Plan: ASSESSMENT Major depressive disorder Anxiety PTSD COPD GERD History of migraines. History of CVA. History of brain tumor PLAN Lipid panel - trigs elevated at 422, HDL 24 - start with lifestyle modification with a heart healthy diet; consider initiating low-dose statin for risk reduction. BP has improved overall - was slightly low yesterday am at 98/73 but otherwise has been stable. Dr. Victor's notes reviewed: Steve lorenzo. Hospital Course Summary Disclaimer: The visit summary below is not to be considered part of the above Progress Note. Hospital Course: 02/21/17 - admission Impression Major depressive disorder Anxiety PTSD COPD GERD History of migraines. History of CVA. History of brain tumor Plan Agree with admission to [facility] under the care of Dr. Victor for further psychiatric evaluation and treatment. Patient was medically screened and examined in the emergency room including laboratory studies and CT scan of the head. This did not reveal any acute intracranial abnormality, However, does reveal a prior left occipital craniotomy. Nicotine patch and encouragement of tobacco cessation. Encourage patient to participate in unit activities and provide a safe environment Hospital services will continue to follow patient medically manage her existing comorbidities. At time of discharge medical care will return to her primary care provider. [facility], Roxy Hernandezlala- GRACIA 02/21/17 19:32 PT very anxious. Will increase Trazodone to 100mg at HS. Gabapentin 300mg PO TID 02/22/17 18:21 PT improved slightly. Continue current care 02/23/17 10:54 Continues to have anxiety and morbid thoughts at times. Seroquel XR 150mg PO QHS 02/24/17 11:44 Continues to have panic symptoms at times but improved. Continue current care 02/25/17 18:56 Anxious today and some morbid thoughts. Increase Gabapentin to 600mg PO TID 02/26/17 Lightheadedness with occasional low-normal to low BP - CBC and BMP repeated - unremarkable. TSH was normal at 1.66. Advised pt to f/u with PCP regarding her concern about estrogen/testosterone levels. BP improved this am. Contacted to inquire about baseline BP - the last time she was seen in the clinic was Mar, 2016 and at that time it was 130/80 02/26/17 18:55 Remains anxious. Increase Seroquel XR to 300mg at HS 02/27/17 18:04 Remains anxious. Continue current care 02/28/17 19:30 Pt remains depressed and anxious. D/C Seroquel
--- NOTE | 2017-03-01 18:51 | Neuropsych Progress Note ---
[facility] Subjective Date: 03/01/17 - Sujective/Severity of Illness Medications: Acetaminophen (Tylenol) 325 - 650 mg PO Q5H PRN PRN Reason: Discomfort Clonazepam (Klonopin) 1 mg PO TID [facility] Last Admin: 03/01/17 14:21 Dose: 1 mg Gabapentin (Neurontin) 600 mg PO TID [facility] Last Admin: 03/01/17 14:21 Dose: 600 mg Haloperidol (Haldol) 0.5 mg PO Q6H PRN PRN Reason: Extreme agitation Last Admin: 02/25/17 04:28 Dose: 0.5 mg Haloperidol Lactate (Haldol) 0.5 mg IM Q6H PRN PRN Reason: Extreme agitation Ibuprofen (Motrin) 600 mg PO Q8H PRN PRN Reason: Pain Lorazepam (Ativan) 0.5 mg PO Q6H PRN PRN Reason: Extreme agitation Last Admin: 02/28/17 01:56 Dose: 0.5 mg Lorazepam (Ativan Inj) 0.5 mg IM Q6H PRN PRN Reason: Extreme agitation Nicotine (Nicoderm) 14 mg TD DAILY [facility] Last Admin: 03/01/17 08:12 Dose: 14 mg Nicotine (Nicotine Patch Removal) 1 removal TD DAILY [facility] Last Admin: 03/01/17 08:13 Dose: 1 removal Ranitidine HCl (Zantac) 300 mg PO DAILY [facility] Last Admin: 03/01/17 08:13 Dose: 300 mg Trazodone HCl (Desyrel) 100 mg PO [facility] Last Admin: 02/28/17 20:08 Dose: 100 mg Venlafaxine HCl (Effexor Xr) 150 mg PO [facility] Last Admin: 03/01/17 08:12 Dose: 150 mg Venlafaxine HCl (Effexor Xr) 75 mg PO [facility] Last Admin: 03/01/17 08:12 Dose: 75 mg Subjective: PT seen and chart examined. Nursing reports pt is doing better today. On face to face the pt states she is feeling better. Slept better and has a good appetite. Mood and anxiety improved. Denies S/I. Pt states she feels she is getting close to feeling well enough to go home. Tolerating meds Start Time: 17:00 Stop Time: 17:15 Mental Status Exam Vitals: Last Vital Signs Temp 97.8 F 03/01/17 16:00 Pulse 88 03/01/17 16:00 Resp 18 03/01/17 16:00 BP 113/87 03/01/17 16:00 Pulse Ox 93 03/01/17 16:00 Height: 1.73 m Weight: 86 kg - Mental Status Exam Muscle Strength/Tone: Normal Dressing: Casual Grooming: Good Attitude: Guarded Motor Activity: Retardation Eye Contact: Fair Speech: Slowed Volume: Soft Rhythm: Appropriate Rhythm Orientation: Oriented X4 Mood: Depressed, Anxious Rate of Thoughts: Delayed Thought Organization: [place] Associations: Intact Abstract Reasoning: Intact, able to abstract Computation: Intact Thought Content: Hopelessness, Helplessness, Worthlessness Perception/Psychotic: Perception Normal Language: Naming Intact Fund of Knowledge: Appropriate Memory: Grossly Intact Suicidal Ideation: Denies Homicidal Ideation: Denies Insight: Poor Judgement: Poor Impulse Control: Poor - Laboratory Result Diagrams: 02/26/17 10:05 02/26/17 10:05 Assessment and Plan (1) MDD (major depressive disorder), recurrent severe, without psychosis Current visit: Yes Status: Acute (2) PTSD (post-traumatic stress disorder) Current visit: Yes Status: Acute Hospital Course Summary Disclaimer: The visit summary below is not to be considered part of the above Progress Note. Hospital Course: 02/21/17 - admission Impression Major depressive disorder Anxiety PTSD COPD GERD History of migraines. History of CVA. History of brain tumor Plan Agree with admission to [facility] under the care of Dr. Victor for further psychiatric evaluation and treatment. Patient was medically screened and examined in the emergency room including laboratory studies and CT scan of the head. This did not reveal any acute intracranial abnormality, However, does reveal a prior left occipital craniotomy. Nicotine patch and encouragement of tobacco cessation. Encourage patient to participate in unit activities and provide a safe environment Hospital services will continue to follow patient medically manage her existing comorbidities. At time of discharge medical care will return to her primary care provider. [facility], Roxy Figueroa APRN 02/21/17 19:32 PT very anxious. Will increase Trazodone to 100mg at HS. Gabapentin 300mg PO TID 02/22/17 18:21 PT improved slightly. Continue current care 02/23/17 10:54 Continues to have anxiety and morbid thoughts at times. Seroquel XR 150mg PO QHS 02/24/17 11:44 Continues to have panic symptoms at times but improved. Continue current care 02/25/17 18:56 Anxious today and some morbid thoughts. Increase Gabapentin to 600mg PO TID 02/26/17 Lightheadedness with occasional low-normal to low BP - CBC and BMP repeated - unremarkable. TSH was normal at 1.66. Advised pt to f/u with PCP regarding her concern about estrogen/testosterone levels. BP improved this am. Contacted to inquire about baseline BP - the last time she was seen in the clinic was Mar, 2016 and at that time it was 130/80 02/26/17 18:55 Remains anxious. Increase Seroquel XR to 300mg at HS 02/27/17 18:04 Remains anxious. Continue current care 02/28/17 19:30 Pt remains depressed and anxious. D/C Seroquel 03/01/17 18:51 Improved today. Continue current care
[2017-03-01] MEDS: TRAZODONE 100 MG TABLET PO SCH (20:09)
[2017-03-02] MEDS: ClonazePAM 1 MG TABLET PO SCH ×3 (08:25→20:35)
[2017-03-02] MEDS: Venlaflaxine XR 75 MG CAPSULE (24hr) PO SCH (08:25)
[2017-03-02] MEDS: GABAPENTIN 600 MG TABLET PO SCH ×3 (08:25→20:34)
[2017-03-02] MEDS: NICOTINE 14 MG PATCH TD SCH (08:27)
[2017-03-02] MEDS: NICOTINE PATCH REMOVAL TD SCH (08:29)
[2017-03-02] MEDS: RANITIDINE 300 MG TABLET PO SCH (08:44)
[2017-03-02] MEDS ORDERED: HYDROCORTISONE 2.5% CREAM 30gm TOP PRN (10:29)
--- NOTE | 2017-03-02 10:33 | Progress Note ---
- Date 03/02/17 Subjective: Susie began to have severe pain in her perianal area this am. She reports that for the last 2 days she had bright red blood on the tissue after she wiped following a BM. She denies constipation or straining. She has never had this before. Objective Vital signs: Temperature 97.3 F 03/02/17 08:00 Pulse Rate 82 03/02/17 08:00 Respiratory Rate 18 03/02/17 08:00 Blood Pressure 115/77 03/02/17 08:00 Pulse Oximetry 96 03/02/17 08:00 Height/Weight/BMI: Height 1.73 m Weight 86 kg Body Mass Index 25.7 - Constitutional Present: mild distress - Routine Respiratory Exam Comments: no distress - Routine Exam Genitals image: 1 - soft nonthrombosed hemorrhoid with superficial abrasion - Routine Extremities Exam Present: no edema - Routine Skin Exam Present: warm - Routine Neurological Exam Present: alert, oriented X3 - Routine Psychiatric Exam Present: anxious Results - Labs CBC & Chem 7: 02/26/17 10:05 02/26/17 10:05 Assessment and Plan (1) Depression Current visit: Yes Status: Acute (2) MDD (major depressive disorder), recurrent severe, without psychosis Current visit: Yes Status: Acute (3) PTSD (post-traumatic stress disorder) Current visit: Yes Status: Acute Assessment and Plan: ASSESSMENT Major depressive disorder Anxiety Hemorrhoid with bleeding PTSD COPD GERD History of migraines. History of CVA. History of brain tumor PLAN Start Anusol TID. Start taking MiraLAX daily and encourage a high-fiber diet. Sitz bath PRN. Tylenol/ibuprofen PRN. check hemogram in am d/t bleeding. Hospital Course Summary Disclaimer: The visit summary below is not to be considered part of the above Progress Note. Hospital Course: 02/21/17 - admission Impression Major depressive disorder Anxiety PTSD COPD GERD History of migraines. History of CVA. History of brain tumor Plan Agree with admission to [facility] under the care of Dr. Victor for further psychiatric evaluation and treatment. Patient was medically screened and examined in the emergency room including laboratory studies and CT scan of the head. This did not reveal any acute intracranial abnormality, However, does reveal a prior left occipital craniotomy. Nicotine patch and encouragement of tobacco cessation. Encourage patient to participate in unit activities and provide a safe environment Hospital services will continue to follow patient medically manage her existing comorbidities. At time of discharge medical care will return to her primary care provider. [facility], Roxy Holguinlizz FAGAN 02/21/17 19:32 PT very anxious. Will increase Trazodone to 100mg at HS. Gabapentin 300mg PO TID 02/22/17 18:21 PT improved slightly. Continue current care 02/23/17 10:54 Continues to have anxiety and morbid thoughts at times. Seroquel XR 150mg PO QHS 02/24/17 11:44 Continues to have panic symptoms at times but improved. Continue current care 02/25/17 18:56 Anxious today and some morbid thoughts. Increase Gabapentin to 600mg PO TID 02/26/17 Lightheadedness with occasional low-normal to low BP - CBC and BMP repeated - unremarkable. TSH was normal at 1.66. Advised pt to f/u with PCP regarding her concern about estrogen/testosterone levels. BP improved this am. Contacted to inquire about baseline BP - the last time she was seen in the clinic was Mar, 2016 and at that time it was 130/80 02/26/17 18:55 Remains anxious. Increase Seroquel XR to 300mg at HS 02/27/17 18:04 Remains anxious. Continue current care 02/28/17 19:30 Pt remains depressed and anxious. D/C Seroquel 03/01/17 18:51 Improved today. Continue current care 03/02/17 Start Anusol TID. Start taking MiraLAX daily and encourage a high-fiber diet. Sitz bath PRN. Tylenol/ibuprofen PRN.
[2017-03-02] MEDS: IBUPROFEN 600 MG TABLET PO PRN (11:02)
[2017-03-02] MEDS: POLYETHYL GLYCOL 3350 17gm PACKET PO SCH (12:23)
--- NOTE | 2017-03-02 12:31 | Neuropsych Progress Note ---
[facility] Subjective Date: 03/02/17 - Sujective/Severity of Illness Medications: Acetaminophen (Tylenol) 325 - 650 mg PO Q5H PRN PRN Reason: Discomfort Clonazepam (Klonopin) 1 mg PO TID [facility] Last Admin: 03/02/17 08:25 Dose: 1 mg Gabapentin (Neurontin) 600 mg PO TID [facility] Last Admin: 03/02/17 08:25 Dose: 600 mg Haloperidol (Haldol) 0.5 mg PO Q6H PRN PRN Reason: Extreme agitation Last Admin: 02/25/17 04:28 Dose: 0.5 mg Haloperidol Lactate (Haldol) 0.5 mg IM Q6H PRN PRN Reason: Extreme agitation Hydrocortisone (Anusol-Hc 2.5% Cream) 1 applic TOP TID [facility] Ibuprofen (Motrin) 600 mg PO Q8H PRN PRN Reason: Pain Last Admin: 03/02/17 11:02 Dose: 600 mg Nicotine (Nicoderm) 14 mg TD DAILY [facility] Last Admin: 03/02/17 08:27 Dose: 14 mg Nicotine (Nicotine Patch Removal) 1 removal TD DAILY [facility] Last Admin: 03/02/17 08:29 Dose: 1 removal Polyethylene Glycol (Miralax) 17 gm PO DAILY [facility] Last Admin: 03/02/17 12:23 Dose: 17 gm Ranitidine HCl (Zantac) 300 mg PO DAILY [facility] Last Admin: 03/02/17 08:44 Dose: 300 mg Trazodone HCl (Desyrel) 100 mg PO HS [facility] Last Admin: 03/01/17 20:09 Dose: 100 mg Venlafaxine HCl (Effexor Xr) 150 mg PO WB [facility] Last Admin: 03/02/17 08:25 Dose: 150 mg Venlafaxine HCl (Effexor Xr) 75 mg PO WB [facility] Last Admin: 03/02/17 08:25 Dose: 75 mg Subjective: PT seen and chart examined. Nursing reports pt is doing well. Sleeping well and has a good appetite. On face to face the pt states she is having some hemorrhoid pain which the medical team is treating. She states her mood is improved and anxiety is also improved. Denies S/I. Tolerating meds Start Time: 12:00 Stop Time: 12:15 Mental Status Exam Vitals: Last Vital Signs Temp 97.3 F 03/02/17 08:00 Pulse 82 03/02/17 08:00 Resp 18 03/02/17 08:00 BP 115/77 03/02/17 08:00 Pulse Ox 96 03/02/17 08:00 Height: 1.73 m Weight: 86 kg - Mental Status Exam Muscle Strength/Tone: Normal Dressing: Casual Grooming: Good Attitude: Guarded Motor Activity: Retardation Eye Contact: Fair Speech: Slowed Volume: Soft Rhythm: Appropriate Rhythm Orientation: Oriented X4 Mood: Depressed, Anxious Rate of Thoughts: Delayed Thought Organization: [place] Associations: Intact Abstract Reasoning: Intact, able to abstract Computation: Intact Thought Content: Hopelessness, Helplessness, Worthlessness Perception/Psychotic: Perception Normal Language: Naming Intact Fund of Knowledge: Appropriate Memory: Grossly Intact Suicidal Ideation: Denies Homicidal Ideation: Denies Insight: Poor Judgement: Poor Impulse Control: Poor - Laboratory Result Diagrams: 02/26/17 10:05 02/26/17 10:05 Assessment and Plan (1) MDD (major depressive disorder), recurrent severe, without psychosis Current visit: Yes Status: Acute (2) PTSD (post-traumatic stress disorder) Current visit: Yes Status: Acute Hospital Course Summary Disclaimer: The visit summary below is not to be considered part of the above Progress Note. Hospital Course: 02/21/17 - admission Impression Major depressive disorder Anxiety PTSD COPD GERD History of migraines. History of CVA. History of brain tumor Plan Agree with admission to [facility] under the care of Dr. Victor for further psychiatric evaluation and treatment. Patient was medically screened and examined in the emergency room including laboratory studies and CT scan of the head. This did not reveal any acute intracranial abnormality, However, does reveal a prior left occipital craniotomy. Nicotine patch and encouragement of tobacco cessation. Encourage patient to participate in unit activities and provide a safe environment Hospital services will continue to follow patient medically manage her existing comorbidities. At time of discharge medical care will return to her primary care provider. [facility], Roxy Figueroa APRN 02/21/17 19:32 PT very anxious. Will increase Trazodone to 100mg at HS. Gabapentin 300mg PO TID 02/22/17 18:21 PT improved slightly. Continue current care 02/23/17 10:54 Continues to have anxiety and morbid thoughts at times. Seroquel XR 150mg PO QHS 02/24/17 11:44 Continues to have panic symptoms at times but improved. Continue current care 02/25/17 18:56 Anxious today and some morbid thoughts. Increase Gabapentin to 600mg PO TID 02/26/17 Lightheadedness with occasional low-normal to low BP - CBC and BMP repeated - unremarkable. TSH was normal at 1.66. Advised pt to f/u with PCP regarding her concern about estrogen/testosterone levels. BP improved this am. Contacted to inquire about baseline BP - the last time she was seen in the clinic was Mar, 2016 and at that time it was 130/80 02/26/17 18:55 Remains anxious. Increase Seroquel XR to 300mg at HS 02/27/17 18:04 Remains anxious. Continue current care 02/28/17 19:30 Pt remains depressed and anxious. D/C Seroquel 03/01/17 18:51 Improved today. Continue current care 03/02/17 Start Anusol TID. Start taking MiraLAX daily and encourage a high-fiber diet. Sitz bath PRN. Tylenol/ibuprofen PRN. 03/02/17 12:30 Mood and anxiety continue to improve. Continue current care. Will D/C PRN Ativan
[2017-03-02] MEDS: HYDROCORTISONE 2.5% CREAM 30gm TOP SCH ×2 (14:36→20:33)
[2017-03-02] MEDS: TRAZODONE 100 MG TABLET PO SCH (20:34)
[2017-03-03] MEDS: Venlaflaxine XR 75 MG CAPSULE (24hr) PO SCH (09:32)
[2017-03-03] MEDS: GABAPENTIN 600 MG TABLET PO SCH ×3 (09:33→21:44)
[2017-03-03] MEDS: RANITIDINE 300 MG TABLET PO SCH (09:33)
[2017-03-03] MEDS: ClonazePAM 1 MG TABLET PO SCH ×3 (09:33→21:44)
[2017-03-03] MEDS: POLYETHYL GLYCOL 3350 17gm PACKET PO SCH (09:34)
[2017-03-03] MEDS: NICOTINE 14 MG PATCH TD SCH (09:34)
[2017-03-03] MEDS: NICOTINE PATCH REMOVAL TD SCH (10:21)
[2017-03-03] MEDS: IBUPROFEN 600 MG TABLET PO PRN (10:29)
[2017-03-03] MEDS: HYDROCORTISONE 2.5% CREAM 30gm TOP SCH (11:01)
[2017-03-03] MEDS ORDERED: Hydrocortisone 25 MG SUPP PR PRN (12:17)
--- NOTE | 2017-03-03 12:27 | Neuropsych Progress Note ---
[facility] Subjective Date: 03/03/17 - Sujective/Severity of Illness Medications: Acetaminophen (Tylenol) 325 - 650 mg PO Q5H PRN PRN Reason: Discomfort Clonazepam (Klonopin) 1 mg PO TID [facility] Last Admin: 03/03/17 09:33 Dose: 1 mg Gabapentin (Neurontin) 600 mg PO TID [facility] Last Admin: 03/03/17 09:33 Dose: 600 mg Haloperidol (Haldol) 0.5 mg PO Q6H PRN PRN Reason: Extreme agitation Last Admin: 02/25/17 04:28 Dose: 0.5 mg Haloperidol Lactate (Haldol) 0.5 mg IM Q6H PRN PRN Reason: Extreme agitation Hydrocortisone (Anusol-Hc 2.5% Cream) 1 applic TOP TID [facility] Last Admin: 03/03/17 11:01 Dose: 1 applic Hydrocortisone Acetate (Anusol-Hc Supp) 25 mg [place] BID PRN PRN Reason: Hemorrhoids Ibuprofen (Motrin) 600 mg PO Q8H PRN PRN Reason: Pain Last Admin: 03/03/17 10:29 Dose: 600 mg Nicotine (Nicoderm) 14 mg TD DAILY [facility] Last Admin: 03/03/17 09:34 Dose: 14 mg Nicotine (Nicotine Patch Removal) 1 removal TD DAILY [facility] Last Admin: 03/03/17 10:21 Dose: 1 removal Polyethylene Glycol (Miralax) 17 gm PO DAILY [facility] Last Admin: 03/03/17 09:34 Dose: 17 gm Ranitidine HCl (Zantac) 300 mg PO DAILY [facility] Last Admin: 03/03/17 09:33 Dose: 300 mg Trazodone HCl (Desyrel) 100 mg PO HS [facility] Last Admin: 03/02/17 20:34 Dose: 100 mg Venlafaxine HCl (Effexor Xr) 150 mg PO WB [facility] Last Admin: 03/03/17 09:32 Dose: 150 mg Venlafaxine HCl (Effexor Xr) 75 mg PO WB [facility] Last Admin: 03/03/17 09:32 Dose: 75 mg Subjective: PT seen and chart examined. Nursing reports pt is doing well. Sleeping well and has a good appetite. On face to face the pt states she is dealing with pain and requests pain meds. She states her mood is improved and her anxiety is well controlled. Denies S/I. Tolerating meds. Start Time: 10:45 Stop Time: 11:00 Mental Status Exam Vitals: Last Vital Signs Temp 97.2 F 03/03/17 08:00 Pulse 84 03/03/17 08:00 Resp 16 03/03/17 08:00 BP 102/69 03/03/17 08:00 Pulse Ox 96 03/03/17 08:00 Height: 1.73 m Weight: 86 kg - Mental Status Exam Muscle Strength/Tone: Normal Dressing: Casual Grooming: Good Attitude: Guarded Motor Activity: Retardation Eye Contact: Fair Speech: Slowed Volume: Soft Rhythm: Appropriate Rhythm Orientation: Oriented X4 Mood: Depressed, Anxious Rate of Thoughts: Delayed Thought Organization: [place] Associations: Intact Abstract Reasoning: Intact, able to abstract Computation: Intact Thought Content: Hopelessness, Helplessness, Worthlessness Perception/Psychotic: Perception Normal Language: Naming Intact Fund of Knowledge: Appropriate Memory: Grossly Intact Suicidal Ideation: Denies Homicidal Ideation: Denies Insight: Poor Judgement: Poor Impulse Control: Poor - Laboratory Result Diagrams: 03/03/17 07:05 02/26/17 10:05 Laboratory Results - last 24 hr 03/03/17 07:05 WBC 7.7 RBC 4.33 Hgb 13.4 Hct 39.8 MCV 91.9 MCH 30.9 MCHC 33.7 RDW Std Deviation 43.3 Plt Count 242 MPV 9.7 Assessment and Plan (1) MDD (major depressive disorder), recurrent severe, without psychosis Current visit: Yes Status: Acute (2) PTSD (post-traumatic stress disorder) Current visit: Yes Status: Acute Hospital Course Summary Disclaimer: The visit summary below is not to be considered part of the above Progress Note. Hospital Course: 02/21/17 - admission Impression Major depressive disorder Anxiety PTSD COPD GERD History of migraines. History of CVA. History of brain tumor Plan Agree with admission to [facility] under the care of Dr. Victor for further psychiatric evaluation and treatment. Patient was medically screened and examined in the emergency room including laboratory studies and CT scan of the head. This did not reveal any acute intracranial abnormality, However, does reveal a prior left occipital craniotomy. Nicotine patch and encouragement of tobacco cessation. Encourage patient to participate in unit activities and provide a safe environment Hospital services will continue to follow patient medically manage her existing comorbidities. At time of discharge medical care will return to her primary care provider. [facility], Roxy Mullins- GRACIA 02/21/17 19:32 PT very anxious. Will increase Trazodone to 100mg at HS. Gabapentin 300mg PO TID 02/22/17 18:21 PT improved slightly. Continue current care 02/23/17 10:54 Continues to have anxiety and morbid thoughts at times. Seroquel XR 150mg PO QHS 02/24/17 11:44 Continues to have panic symptoms at times but improved. Continue current care 02/25/17 18:56 Anxious today and some morbid thoughts. Increase Gabapentin to 600mg PO TID 02/26/17 Lightheadedness with occasional low-normal to low BP - CBC and BMP repeated - unremarkable. TSH was normal at 1.66. Advised pt to f/u with PCP regarding her concern about estrogen/testosterone levels. BP improved this am. Contacted to inquire about baseline BP - the last time she was seen in the clinic was Mar, 2016 and at that time it was 130/80 02/26/17 18:55 Remains anxious. Increase Seroquel XR to 300mg at HS 02/27/17 18:04 Remains anxious. Continue current care 02/28/17 19:30 Pt remains depressed and anxious. D/C Seroquel 03/01/17 18:51 Improved today. Continue current care 03/02/17 Start Anusol TID. Start taking MiraLAX daily and encourage a high-fiber diet. Sitz bath PRN. Tylenol/ibuprofen PRN. 03/02/17 12:30 Mood and anxiety continue to improve. Continue current care. Will D/C PRN Ativan 03/03/17 12:26 Continues to improve. Continue current care. Primary team to manage pain
--- NOTE | 2017-03-03 14:42 | Progress Note ---
- Date 03/03/17 Subjective: Patient requested follow up visit today re: hemorrhoids. RN reports that the creams ordered yesterday were not helping her hemorrhoids per pt. report. Pt. is seen, is in no distress and is visiting with friend. She requests clinical exam. We did complete that in the privacy of her room. She continues to report perineal pain, worse with urination. Increased burning with urination, reports increased pain with sitting. Does not feel that Gabapentin or Ibuprofen are helping the pain. She has been using the ordered steroid cream with no effect. She denies past or current history of hemorrhoids. Not sexually active- . Reports no history of new partners. No history of HSV or other STD. Denies itching in vaginal area. She does not have vaginal drainage per her report. No recent well woman exam as she is s/p total hysterectomy. Reports main c/o is burning in vaginal area with urination. No pain with defecation. No constipation or past constipation. Stools are soft. Some blood with wiping. Objective Vital signs: Temperature 97.2 F 03/03/17 08:00 Pulse Rate 84 03/03/17 08:00 Respiratory Rate 16 03/03/17 08:00 Blood Pressure 102/69 03/03/17 08:00 Pulse Oximetry 96 03/03/17 08:00 Height/Weight/BMI: Height 1.73 m Weight 86 kg Body Mass Index 25.7 - Constitutional Present: no acute distress, well nourished, well developed, obese, cooperative Comments: She is alert, appropriate. Calm. - Routine HEENT Exam Head: Present: normocephalic Eye: Present: EOMI, PERRL, normal accommodation ENT: Present: mucous membranes moist, mucous membranes dry - Routine Respiratory Exam Comments: Resp even, unlabored. - Routine Abdominal Exam Present: soft, non distended, non tender - Routine Exam External: Present: normal urethra appearance, tenderness. Absent: swelling, lesions Genitals image: 1 - Mild swelling and redness. No open areas or lesions c/w HSV. 2 - Topical cream in place. 3 - No obvious bleeding. No prolapse. No open areas. Small hemorrhoids? Perineal: Present: erythema, tenderness Comments: I did complete a very superficial exam as there was no staff available to assist with complete exam. There is no obvious lesions, open areas, etc. Possible hemorrhoids are very small. Some mild redness in perineal area? She does have topical cream in perineal area, so unable to determine if there is any vaginal drainage or yeast. - Routine Extremities Exam Present: no edema, non tender - Routine Back/Spine/Pelvis Exam Back/Spine: Present: full ROM - Routine Musculoskeletal Exam Musculoskeletal: Present: normal strength, moving extremities well - Routine Skin Exam Present: intact, dry, warm - Routine Neurological Exam Present: alert, oriented X3, moving all extremities - Routine Psychiatric Exam Present: normal affect, cooperative, good insight, good judgment Results - Labs CBC & Chem 7: 03/03/17 07:05 02/26/17 10:05 Assessment and Plan (1) Depression Current visit: Yes Status: Acute (2) MDD (major depressive disorder), recurrent severe, without psychosis Current visit: Yes Status: Acute (3) PTSD (post-traumatic stress disorder) Current visit: Yes Status: Acute Assessment and Plan: ASSESSMENT Major depressive disorder Anxiety Hemorrhoid with bleeding PTSD COPD GERD History of migraines. History of CVA. History of brain tumor Perineal pain PLAN Unclear on cause of her reports of severe pain. Will treat her empirically for possible vaginal yeast infection with antifungal cream. Will assess UA. Start Pyridium TID as she reports that pain was worse with urination. Tucks pads PRN. Encouraged her to use ice packs to perineal area for pain control. PRN sitz baths. Will allow limited [place] for pain x 48 hours only. Continue stool softeners. If she continues to c/o significant pain, she may need a more complete pelvic exam. I did d/w pt at length and offered explanation of treating her empirically given the location of her pain. She is in agreement. Hospital Course Summary Disclaimer: The visit summary below is not to be considered part of the above Progress Note. Hospital Course: 02/21/17 - admission Impression Major depressive disorder Anxiety PTSD COPD GERD History of migraines. History of CVA. History of brain tumor Plan Agree with admission to [facility] under the care of Dr. Victor for further psychiatric evaluation and treatment. Patient was medically screened and examined in the emergency room including laboratory studies and CT scan of the head. This did not reveal any acute intracranial abnormality, However, does reveal a prior left occipital craniotomy. Nicotine patch and encouragement of tobacco cessation. Encourage patient to participate in unit activities and provide a safe environment Hospital services will continue to follow patient medically manage her existing comorbidities. At time of discharge medical care will return to her primary care provider. [facility], Roxy Hernandezvíctor FAGAN 02/21/17 19:32 PT very anxious. Will increase Trazodone to 100mg at HS. Gabapentin 300mg PO TID 02/22/17 18:21 PT improved slightly. Continue current care 02/23/17 10:54 Continues to have anxiety and morbid thoughts at times. Seroquel XR 150mg PO QHS 02/24/17 11:44 Continues to have panic symptoms at times but improved. Continue current care 02/25/17 18:56 Anxious today and some morbid thoughts. Increase Gabapentin to 600mg PO TID 02/26/17 Lightheadedness with occasional low-normal to low BP - CBC and BMP repeated - unremarkable. TSH was normal at 1.66. Advised pt to f/u with PCP regarding her concern about estrogen/testosterone levels. BP improved this am. Contacted to inquire about baseline BP - the last time she was seen in the clinic was Mar, 2016 and at that time it was 130/80 02/26/17 18:55 Remains anxious. Increase Seroquel XR to 300mg at HS 02/27/17 18:04 Remains anxious. Continue current care 02/28/17 19:30 Pt remains depressed and anxious. D/C Seroquel 03/01/17 18:51 Improved today. Continue current care 03/02/17 Start Anusol TID. Start taking MiraLAX daily and encourage a high-fiber diet. Sitz bath PRN. Tylenol/ibuprofen PRN. 03/02/17 12:30 Mood and anxiety continue to improve. Continue current care. Will D/C PRN Ativan 03/03/17 12:26 Continues to improve. Continue current care. Primary team to manage pain 03/03/17 14:51 Unclear on cause of her reports of severe pain. Will treat her empirically for possible vaginal yeast infection with antifungal cream. Will assess UA. Start Pyridium TID as she reports that pain was worse with urination. Tucks pads PRN. Encouraged her to use ice packs to perineal area for pain control. PRN sitz baths. Will allow limited [place] for pain x 48 hours only. Continue stool softeners. If she continues to c/o significant pain, she may need a more complete pelvic exam. I did d/w pt at length and offered explanation of treating her empirically given the location of her pain. She is in agreement.
[2017-03-03] MEDS: MICONAZOLE 2% VG PRN (15:37)
[2017-03-03] MEDS: PHENAZOPYRIDINE 95 MG TABLET PO SCH (18:49)
[2017-03-03] MEDS ORDERED: MICONAZOLE 2% VG SCH (21:00)
[2017-03-03] MEDS: HYDROCODONE/APAP 5mg/325mg TABLET PO PRN (21:44)
[2017-03-03] MEDS: TRAZODONE 100 MG TABLET PO SCH (21:44)
--- NOTE | 2017-03-04 08:59 | Discharge Instructions ---
Discharge Plan - Med Rec/Dispo Additional Instructions: Discharge Diagnosis: Major Depressive Disorder Recurrent Severe Reasons for Admission: IN CASE OF PSYCHIATRIC EMERGENCY, CONTACT [facility] STAFF AT [phone] ( available 24 hrs daily). Prescriptions: New Trazodone [Desyrel] 100 mg PO HS #30 tab Venlafaxine XR [Effexor Xr] 150 mg PO WB capsule Venlaflaxine XR [Effexor Xr] 75 mg PO WB #30 cap ClonazePAM [Klonopin] 1 mg PO TID tablet Gabapentin [Neurontin] 600 mg PO TID #90 tab Discontinued Venlafaxine HCl [Effexor Xr] 150 mg PO WB #0 ClonazePAM [Klonopin] 1 mg PO TID No Action raNITIdine HCl [Ranitidine HCl] 300 mg PO DAILY #0 Discharge Instructions/Outpatient Orders: Provider Discharge Instructions Location: Determined By Patient - Disposition 01 Discharged Home, Self-Care
[2017-03-04] MEDS: POLYETHYL GLYCOL 3350 17gm PACKET PO SCH (09:33)
[2017-03-04] MEDS: NICOTINE 14 MG PATCH TD SCH (09:33)
[2017-03-04] MEDS: GABAPENTIN 600 MG TABLET PO SCH ×2 (09:34→15:05)
[2017-03-04] MEDS: ClonazePAM 1 MG TABLET PO SCH ×2 (09:34→15:05)
[2017-03-04] MEDS: RANITIDINE 300 MG TABLET PO SCH (09:34)
[2017-03-04] MEDS: Venlaflaxine XR 75 MG CAPSULE (24hr) PO SCH (09:34)
[2017-03-04] MEDS: NICOTINE PATCH REMOVAL TD SCH (09:34)
[2017-03-04] MEDS: PHENAZOPYRIDINE 95 MG TABLET PO SCH ×2 (09:35→13:18)
--- NOTE | 2017-03-04 10:15 | Discharge Instructions ---
Discharge Plan - Med Rec/Dispo Referrals/Follow Up: Carla James APRN [Other] (Carla James APRN on 03/07/17 at 3:40 pm for Med Management follow-up. [facility] [address] [facility] [address] [place] [address]) [facility] [Provider Group] (Nighat Chance APRN on 03/11/17 at 1:45 pm for Hosp. follow-up. [address] [place] [address]) Additional Instructions: Discharge Diagnosis: Major Depressive Disorder Recurrent Severe Reasons for Admission: Increased Morbid Ideation, depressive symptoms, and anxiety. IN CASE OF PSYCHIATRIC EMERGENCY, CONTACT [facility] AT [phone] ( available 24 hrs daily). May use TUCKS pads for vaginal discomfort. Follow up with your primary provider for further evaluation. Prescriptions: New Trazodone [Desyrel] 100 mg PO HS #30 tab Venlafaxine XR [Effexor Xr] 150 mg PO WB capsule Venlaflaxine XR [Effexor Xr] 75 mg PO WB #30 cap Miconazole 2% Vaginal Cream [Monistat Vaginal Cream] 1 applic VG TID PRN tube PRN Reason: vaginal discomfort ClonazePAM [Klonopin] 1 mg PO TID tablet Gabapentin [Neurontin] 600 mg PO TID #90 tab Continue raNITIdine HCl [Ranitidine HCl] 300 mg PO DAILY #0 Discontinued Venlafaxine HCl [Effexor Xr] 150 mg PO WB #0 ClonazePAM [Klonopin] 1 mg PO TID Discharge Instructions/Outpatient Orders: Provider Discharge Instructions Location: Determined By Patient
[2017-03-04] MEDS: MICONAZOLE 2% VG PRN (10:23)
[2017-03-04] MEDS: HYDROCODONE/APAP 5mg/325mg TABLET PO PRN (10:23)
[2017-03-04] MEDS: IBUPROFEN 600 MG TABLET PO PRN (13:17)
[2017-03-04 13:35] VITALS: BP 96/74; PULSE 74; RESP 18; TEMP 97.6; O2SAT 93
== END 2017-03-04 16:00 | disposition home or self-care (01) | DRG 885 ==
LOC: ED 14:13 → GEN 16:55
PROVIDERS: ADMIT Psychiatry & Neurology Psychiatry; ATTEND Psychiatry & Neurology Psychiatry